=== PATIENT | female | born 1955 | race Two or more races ===

== ENCOUNTER 2016-10-28 07:25 | Emergency (ER) | payer OTHER ==
[~2016-10-28] VITALS: Ht 154.9 cm; Wt 63.5 kg
[~2016-10-28 07:25] MED LIST: AMLODIPINE BESY10 MG ORAL; ATENOLOL50 MG ORAL; ATORVASTATIN CA20 MG ORAL; BENAZEPRIL HCL20 MG ORAL; CEPHALEXIN500 MG ORAL; COUMADIN1 MG ORAL; DIGOXIN0.125 MG/2 ORAL; DIGOXIN125 MCG ORAL; K-TAB10 MEQ PO; LASIX20 M1 ORAL; TENORMIN25 MG ORAL; WARFARIN SODIUM3 MG ORAL; WARFARIN SODIUM5 MG ORAL
[2016-10-28 07:45] VITALS: BP 136/53
[2016-10-28] MEDS ORDERED: WARFARIN SODIUM3 MG ORAL (07:48)
--- NOTE | 2016-10-28 08:03 | Emergency Room Report ---
History of Present Illness General Chief Complaint: Upper Respiratory Illness Source: Patient Present Illness HPI Patient presents with complaints of ongoing cough for the past one day Denies any headache or visual changes denies any chest pain denies any back or flank pain Denies any dyspnea denies any pleurisy Patient feels that she has a irritation sensation in the back of her throat Denies any runny nose denies any recent travel Allergies: Coded Allergies: PENICILLIN (Unverified Allergy, Unknown, 07/02/15) Patient History Past Medical History: see triage record Pertinent Family History: none Reviewed Nursing Documentation: PMH: Agreed, PSxH: Agreed Nursing Documentation-PMH Past Medical History: No History, Except For Hx Cardiac Problems: Yes - heart surgery (valve replacement) Hx Hypertension: Yes Hx Cancer: No Hx Gastrointestinal Problems: No Hx Neurological Problems: No Review of Systems All Other Systems: negative except mentioned in HPI Physical Exam Vital Signs Date Time Temp Pulse Resp B/P Pulse Ox O2 Delivery O2 Flow Rate FiO2 10/28/16 07:37 98.2 74 16 136/53 94 Room Air Sp02 EP Interpretation: reviewed, normal General Appearance: well appearing, no apparent distress Head: normocephalic, atraumatic Eyes: bilateral eye EOMI, bilateral eye PERRL ENT: hearing grossly normal, normal pharynx, TMs + canals normal, uvula midline Neck: full range of motion, supple, no meningismus, no bony tend Respiratory: lungs clear, normal breath sounds, no rhonchi, no respiratory distress, no retraction, no accessory muscle use Cardiovascular #1: normal peripheral pulses, regular rate, rhythm, no edema, no gallop, no JVD, no murmur Gastrointestinal: normal bowel sounds, non tender, soft, no mass, no organomegaly, non-distended, no guarding, no hernia, no pulsatile mass, no rebound Genitourinary: no CVA tenderness Musculoskeletal: normal inspection Neurologic: oriented x3, responsive, medical observer III-XII nml as tested, motor strength/ tone normal, sensory intact Psychiatric: mood/affect normal Skin: normal color, no rash, warm/dry, palpation normal, other - Evidence of previous open-heart surgery Lymphatic: normal inspection, no adenopathy Medical Decision Making Diagnostic Impression: Primary Impression: Upper respiratory infection Additional Impression: Cough ER Course Patient is a fairly complex patient with multiple differential to consideration including but not limited to cardiac cardiopulmonary and vascular emergencies Patient's chest x-ray does not show any acute disease Patient has multiple comorbidities including cardiac pathology, evidence of valve replacement as well Patient's cough appears to be related to allergic, URI type symptoms Consideration for cardiac is low, possible reflux versus valve issues also need to be considered Patient has some remains hemodynamically stable clinical exam does not show any edema or acute pathology patient is initially treated conservatively for the URI symptom along with cough And will return with any changes in symptoms Chest X-Ray Diagnostic Results EP Interpretation: Yes Findings: no consolidation, no effusion, no pneumothorax, other - previous surgery, valve replacement Number of Views: 1 Last Vital Signs Date Time Temp Pulse Resp B/P Pulse Ox O2 Delivery O2 Flow Rate FiO2 10/28/16 07:45 98.2 16 136/53 94 Room Air 10/28/16 07:45 74 Status: improved Disposition: HOME, SELF-CARE Condition: Improved Scripts Guaifenesin/Codeine Phos* (ROBITUSSIN AC*) 118 Ml Liquid 5 ML ORAL Q8HR Y for For Cough for 5 Days, #118 ML 0 Refills Prov: NJ MELISSA D.O. 10/28/16 Famotidine (PEPCID) 40 Mg Tablet 40 MG PO DAILY, #7 TAB 0 Refills Prov: NJ MELISSA D.O. 10/28/16 Additional Instructions: Patient is provided with the discharge instructions notified to follow up with primary doctor in the next 2-3 days otherwise return to the er with any worsening symptoms. Please note that this report is being documented using Xierkang technology. This can lead to erroneous entry secondary to incorrect interpretation by the dictating instrument. NJ MELISSA D.O. October 28, 2016 08:03
[2016-10-28] MEDS ORDERED: GUAIFENESIN-CO118 M1 ORAL (09:15)
[2016-10-28] MEDS ORDERED: PEPCID40 MG PO (09:15)
[2016-10-28 09:26] VITALS: BP 135/54
[2016-10-28 09:28] VITALS: BP 135/54
--- NOTE | 2016-10-28 11:41 | Diagnostic Imaging Report ---
Indication: Dyspnea Comparison: 07/02/15 A single view chest radiograph was obtained. Findings: Cardiomegaly is present. Mild vascular prominence noted. Mechanical heart, sternotomy noted. Impression: No interval change. Mild interstitial edema is not excluded
== END 2016-10-28 09:29 | disposition home or self-care (01) ==
LOC: EMR 08:02
DX: J06.9 Acute upper respiratory infection, unspecified (principal); R05 Cough; Z88.0 Allergy status to penicillin; I10 Essential (primary) hypertension; Z95.2 Presence of prosthetic heart valve
CPT/HCPCS: 71010; 99284

== ENCOUNTER 2017-06-06 00:07 | Emergency (ER) | payer OTHER ==
[~2017-06-06] VITALS: Ht 160 cm; Wt 72.6 kg
[~2017-06-06 00:07] MED LIST changes: +GUAIFENESIN-CO118 M1 ORAL; +PEPCID40 MG PO
[2017-06-06 00:17] VITALS: BP 151/68
[2017-06-06 01:11] LABS: BASOPHILS % (AUTO) 0.7 % (0.0-2.0); EOSINOPHILS % (AUTO) 4.7 % (0.0-3.0); LYMPHOCYTES % (AUTO) 17.7 % (20.0-45.0); MEAN CORPUSCULAR HEMOGLOBIN 30.8 PG (27.0-31.0); MEAN CORPUSCULAR HGB CONC 34.6 G/DL (32.0-36.0); MEAN CORPUSCULAR VOLUME 89 FL (80-99); MEAN PLATELET VOLUME 6.6 FL (6.5-10.1); MONOCYTES % (AUTO) 8.2 % (1.0-10.0); NEUTROPHILS % (AUTO) 68.8 % (45.0-75.0); PLATELET COUNT 258 K/UL (150-450); RED BLOOD COUNT 4.37 M/UL (4.20-5.40); WHITE BLOOD COUNT 13.8 K/UL (4.8-10.8)
[2017-06-06 01:13] LABS: APPEARANCE,URINE CLEAR; KETONES,URINE NEGATIVE (NEGATIVE); LEUKOCYTE ESTERASE ,URINE 2+ (NEGATIVE); NITRITE,URINE NEGATIVE (NEGATIVE); PH,URINE 5 (4.5-8.0); PROTEIN,URINE 3+ (NEGATIVE); UROBILINOGEN,URINE NORMAL MG/DL (0.0-1.0)
[2017-06-06 01:35] LABS: PROTHROMBIN TIME 21.4 SEC (9.30-11.50)
[2017-06-06 01:38] LABS: ANION GAP 10 mmol/L (5-15); CARBON DIOXIDE 27 MMOL/L (21-32); CHLORIDE 101 MMOL/L (98-107); POTASSIUM 3.8 MMOL/L (3.5-5.1); SODIUM 138 MMOL/L (136-145)
[2017-06-06 01:41] LABS: BACTERIA,URINE FEW /HPF; SQUAMOUS EPITHELIAL CELL,UR FEW /LPF (NONE/OCC)
--- NOTE | 2017-06-06 01:44 | Emergency Room Report ---
History of Present Illness General Chief Complaint: Upper Respiratory Illness Source: Patient Present Illness HPI 62-year-old female with pmhx mitral valve repair, on Coumadin p/w cough for 2-3 days days. Pt states cough is productive, with clear non bloody sputum. + fever chills sob. No chest pain. + runny nose or myalgias. No sick contacts or recent travel. Patient does not smoke. Allergies: Coded Allergies: PENICILLIN (Unverified Allergy, Unknown, 07/02/15) Patient History Past Medical History: see triage record Past Surgical History: none Pertinent Family History: none Last Menstrual Period: NA Reviewed Nursing Documentation: PMH: Agreed, PSxH: Agreed Nursing Documentation-PMH Hx Cardiac Problems: Yes - heart surgery (valve replacement) Hx Hypertension: Yes Hx Cancer: No Hx Gastrointestinal Problems: No Hx Neurological Problems: No Review of Systems All Other Systems: negative except mentioned in HPI Physical Exam Vital Signs Date Time Temp Pulse Resp B/P (MAP) Pulse Ox O2 Delivery O2 Flow Rate FiO2 06/06/17 00:12 98.6 74 16 151/68 94 Room Air Sp02 EP Interpretation: reviewed, normal General Appearance: alert, GCS 15, non-toxic, mild distress Head: normocephalic, atraumatic Eyes: bilateral eye normal inspection, bilateral eye PERRL, bilateral eye EOMI ENT: normal ENT inspection, normal pharynx, normal voice, moist mucus membranes Neck: normal inspection, full range of motion, supple Respiratory: normal inspection, lungs clear, normal breath sounds, no respiratory distress, no retraction, no wheezing, speaking full sentences, chest symmetrical Cardiovascular #1: regular rate, rhythm, normal capillary refill, systolic murmur, other - well healed substernal scar Cardiovascular #2: 2+ radial (R), 2+ radial (L) Gastrointestinal: normal inspection, non tender, soft, non-distended, no guarding Musculoskeletal: normal inspection, back normal, normal range of motion, non- tender Neurologic: normal inspection, alert, oriented x3, responsive, motor strength/ tone normal, sensory intact, normal gait, speech normal Psychiatric: normal inspection, judgement/insight normal, memory normal Skin: normal inspection, normal color, no rash, warm/dry, well hydrated, normal turgor Medical Decision Making Diagnostic Impression: Primary Impression: Pneumonia ER Course 62-year-old female p/w cough for 2-3 days days. DDX: Viral URI vs. pneumonia Plan: Labs and chest x-ray ER course: Patient remains nontoxic, not in resp distress. CXR obtained -possible left-sided infiltrate nontoxic appearing, speaking in complete sentences, vital signs normal, can tolerate PO, will dc home Disposition: Patient is to be discharged home with a prescription of doxycycline as azithromycin and Levaquin will have severe interactions with Coumadin level Strict precautions discussed with patient on when to return to the emergency room including hemoptysis, high fevers, chills, SOB, chest pain which may indicate severe illness. Patient is to follow up with their primary care doctor within 3 days. Patient agrees with plan. Please note that this Emergency Department Report was dictated using DoYouRemembersurveyor geodetic technology software, occasionally this can lead to erroneous entry secondary to interpretation by the dictation equipment Chest X-ray CXR: Ordered: Yes 1 view Indication: Cough EP interpretation: Yes Interpretation: Cardiomegaly, possible left-sided infiltrate Impression: Possible left-sided pneumonia Electronically signed by Seth Schilling MD Laboratory Tests Test 06/06/17 00:48 White Blood Count 13.8 K/UL (4.8-10.8) H Red Blood Count 4.37 M/UL (4.20-5.40) Hemoglobin 13.4 G/DL (12.0-16.0) Hematocrit 38.9 % (37.0-47.0) Mean Corpuscular Volume 89 FL (80-99) Mean Corpuscular Hemoglobin 30.8 PG (27.0-31.0) Mean Corpuscular Hemoglobin Concent 34.6 G/DL (32.0-36.0) Red Cell Distribution Width 13.0 % (11.6-14.8) Platelet Count 258 K/UL (150-450) Mean Platelet Volume 6.6 FL (6.5-10.1) Neutrophils (%) (Auto) 68.8 % (45.0-75.0) Lymphocytes (%) (Auto) 17.7 % (20.0-45.0) L Monocytes (%) (Auto) 8.2 % (1.0-10.0) Eosinophils (%) (Auto) 4.7 % (0.0-3.0) H Basophils (%) (Auto) 0.7 % (0.0-2.0) Prothrombin Time 21.4 SEC (9.30-11.50) H Prothrombin Time INR 2.0 (0.9-1.1) H PTT 35 SEC (23-33) H Urine Color Yellow Urine Appearance Clear Urine pH 5 (4.5-8.0) Urine Specific [place] 1.020 (1.005-1.035) Urine Protein 3+ (NEGATIVE) H Urine Glucose (UA) Negative (NEGATIVE) Urine Ketones Negative (NEGATIVE) Urine Occult Blood 1+ (NEGATIVE) H Urine Nitrite Negative (NEGATIVE) Urine Bilirubin Negative (NEGATIVE) Urine Urobilinogen Normal MG/DL (0.0-1.0) Urine Leukocyte Esterase 2+ (NEGATIVE) H Urine RBC 2-4 /HPF (0 - 2) H Urine WBC 10-15 /HPF (0 - 2) H Urine Squamous Epithelial Cells Few /LPF (NONE/OCC) Urine Bacteria Few /HPF (NONE) Sodium Level 138 MMOL/L (136-145) Potassium Level 3.8 MMOL/L (3.5-5.1) Chloride Level 101 MMOL/L (98-107) Carbon Dioxide Level 27 MMOL/L (21-32) Anion Gap 10 mmol/L (5-15) Blood Urea Nitrogen 18 mg/dL (7-18) Creatinine 1.0 MG/DL (0.55-1.30) Estimate Glomerular Filtration Rate 56.0 mL/min (>60) Glucose Level 133 MG/DL (74-106) H Calcium Level 9.0 MG/DL (8.5-10.1) Total Bilirubin 2.6 MG/DL (0.2-1.0) H Direct Bilirubin 0.4 MG/DL (0.0-0.3) H Aspartate Amino Transferase (AST) 48 U/L (15-37) H Alanine Aminotransferase (ALT) 41 U/L (12-78) Alkaline Phosphatase 142 U/L (46-116) H Troponin I 0.001 ng/mL (0.000-0.056) Pro-B-Type Natriuretic Peptide 376 pg/mL (0-125) H Total Protein 9.2 G/DL (6.4-8.2) H Albumin 4.5 G/DL (3.4-5.0) Globulin 4.7 g/dL Albumin/Globulin Ratio 1.0 (1.0-2.7) Last Vital Signs Date Time Temp Pulse Resp B/P (MAP) Pulse Ox O2 Delivery O2 Flow Rate FiO2 06/06/17 00:17 98.6 74 16 151/68 94 Room Air Scripts Doxycycline Monohydrate* (DOXYCYCLINE MONOHYDRATE*) 100 Mg Capsule 100 MG ORAL Q12H for 7 Days, #14 CAP 0 Refills Prov: Seth Schilling M.D. 06/06/17 Seth Schilling M.D. Jun 06, 2017 01:44
[2017-06-06] MEDS ORDERED: DOXYCYCLINE MO100 MG ORAL (01:45)
[2017-06-06 01:48] LABS: ALANINE AMINOTRANSFERASE 41 U/L (12-78); ASPARTATE AMINO TRANSFERASE 48 U/L (15-37); TOTAL PROTEIN 9.2 G/DL (6.4-8.2)
[2017-06-06 01:50] LABS: BILIRUBIN,DIRECT 0.4 MG/DL (0.0-0.3)
[2017-06-06] MEDS ORDERED: Benzonatate 100mg Perles ORAL ONE (02:15)
[2017-06-06 02:17] VITALS: BP 141/63
[2017-06-06 02:30] VITALS: BP 144/70
--- NOTE | 2017-06-06 11:47 | Diagnostic Imaging Report ---
Indication: Pain Technique: XRAY Chest 1v Comparison: 10/28/2016 Findings: Stable cardiomegaly. Sternotomy and prosthetic cardiac valve again noted. There is mild pulmonary vascular congestion. There is no focal airspace consolidation, pleural effusion or pneumothorax. Cholecystectomy clips are noted in the right upper quadrant. No acute osseous abnormality seen. Impression: Fragmented with mild pulmonary vascular congestion. No focal consolidation.
== END 2017-06-06 02:30 | disposition home or self-care (01) ==
LOC: EMR 00:32
DX: J18.9 Pneumonia, unspecified organism (principal); I10 Essential (primary) hypertension; Z95.2 Presence of prosthetic heart valve; Z88.0 Allergy status to penicillin
CPT/HCPCS: 36415; 71010; 80053; 81003; 82248; 83880; 84484; 85025; 85610; 85730; 87086; 99284

== ENCOUNTER 2018-08-28 17:28 | Emergency (ER) | payer OTHER ==
[~2018-08-28] VITALS: Ht 157.5 cm; Wt 63.5 kg
[~2018-08-28 17:28] MED LIST changes: +DOXYCYCLINE MO100 MG ORAL
[2018-08-28 18:08] VITALS: BP 149/63
--- NOTE | 2018-08-28 19:02 | Emergency Room Report ---
History of Present Illness General Chief Complaint: Upper Respiratory Illness Source: Medical Record Present Illness HPI 63-year-old female presents to the emergency department complaining of persistent cough with fevers and chills times 3 days in addition to having nasal congestion and rhinorrhea. Denies sore throat, ear pain, high fevers, lethargy, neck pain/stiffness, irritability, photophobia dehydration, N/V/D. Denies Cp, Palpitations, LOC, AMS, seizures, paresthesias, or changes in Hearing or vision, no Sudden severe LOUISE. Denies hx of smoking, asthma or COPD. Pt. has Hx of heart surgery. denies LE edema or hx of CHF. Allergies: Coded Allergies: PENICILLIN (Unverified Allergy, Unknown, 07/02/15) Patient History Past Medical History: see triage record, other Past Surgical History: other - heart valve replacement Now: No Reviewed Nursing Documentation: PMH: Agreed; PSxH: Agreed Nursing Documentation-PMH Past Medical History: No History, Except For Hx Cardiac Problems: Yes - heart surgery (valve replacement) Hx Hypertension: Yes Hx Cancer: No Hx Gastrointestinal Problems: No Hx Neurological Problems: No Review of Systems All Other Systems: negative except mentioned in HPI Physical Exam Vital Signs Date Time Temp Pulse Resp B/P (MAP) Pulse Ox O2 Delivery O2 Flow Rate FiO2 08/28/18 17:41 98.4 80 18 149/63 95 Room Air Medical Decision Making PA Attestation Dr. العراقي is my supervising Physician whom patient management has been discussed with. Diagnostic Impression: Primary Impression: Atypical pneumonia ER Course Pt. presents to the ED c/o cough congestion bodyaches, fevers, chills and headaches x [ ] Ddx considered but are not limited to URI, pneumonia, PE, strep pharyngitis, meningitis. Vital signs: Pt. is afebrile, the remaining VS are WNL H&PE are most consistent with URI- no meningeal signs, oropharynx is not involved, no evidence of bacterial infection at this time. ORDERS: none required at this time, the diagnosis is clinical ED INTERVENTIONS: None required at this time. --PT. EDUCATION: Discussed antibiotic resistance with inappropriate prescribing of antibiotics for viral illnesses. Discussed signs and symptoms to indicate viral illness versus bacterial illness. DISCHARGE: At this time pt. is stable for d/c to home. Will provide printed patient care instructions, and any necessary prescriptions. Care plan and follow up instructions have been discussed with the patient prior to discharge. Last Vital Signs Date Time Temp Pulse Resp B/P (MAP) Pulse Ox O2 Delivery O2 Flow Rate FiO2 08/28/18 18:08 80 18 Room Air 08/28/18 18:08 98.4 149/63 95 Status: improved Disposition: HOME, SELF-CARE Condition: Stable Patient Instructions: Upper Respiratory Infection, Adult Additional Instructions: Take medications as directed. Follow up with a Primary Care Provider in 3-5 days, even if your symptoms have resolved. --Please review list of primary care clinics, if you do not already have a primary care provider Return sooner to ED if new symptoms occur, or current symptoms become worse. Do not drink alcohol, drive, or operate heavy machinery while taking Cough Syrup as this may cause drowsiness. - Please note that this Emergency Department Report was dictated using DriverTechhighway technician technology software, occasionally this can lead to erroneous entry secondary to interpretation by the dictation equipment. Nela Conrad Aug 28, 2018 19:02
[2018-08-28] MEDS ORDERED: PROMETHAZINE-C118 M1 ORAL (19:05)
[2018-08-28] MEDS ORDERED: VIBRAMYCIN100 MG ORAL (19:05)
[2018-08-28 19:17] VITALS: BP 149/63
--- NOTE | 2018-08-28 19:20 | NUR ---
ER DISCHARGE NOTE: Patient is cleared to be discharged per ERMD, pt is aox4, on room air, with stable vital signs. pt was given dc and prescription instructions, pt was able to verbalize understanding, pt is able to ambulate with steady gait. pt took all belongings.
== END 2018-08-28 19:17 | disposition home or self-care (01) ==
LOC: EMR 18:10
DX: J18.9 Pneumonia, unspecified organism (principal); I10 Essential (primary) hypertension; Z88.0 Allergy status to penicillin
CPT/HCPCS: 99282

== ENCOUNTER 2019-02-15 16:20 | Emergency (ER) | payer OTHER ==
[~2019-02-15] VITALS: Ht 162.6 cm; Wt 69.4 kg
[~2019-02-15 16:20] MED LIST changes: +PROMETHAZINE-C118 M1 ORAL; +VIBRAMYCIN100 MG ORAL
--- NOTE | 2019-02-15 16:43 | NUR ---
ED Nurse Note: Pt came in from home due to R index finger swelling and pain x 2 days. No recent injury noted. Pain 8/10 joselito. AOx4, VSS. Has hx of Gout. Will cont to monitor.
[2019-02-15 16:54] VITALS: BP 131/79
--- NOTE | 2019-02-15 17:09 | NUR ---
ED Nurse Note: X-ray tech at bedside for imaging.
--- NOTE | 2019-02-15 17:29 | Emergency Room Report ---
History of Present Illness General Chief Complaint: Pain Source: Patient, Medical Record Present Illness HPI 63-year-old female with history of gout and cardiac disorder currently having a functional defibrillator here complaining of 2 days of pain and swelling over the right index finger without any fall or injury. Patient reports that this is the location where she usually gets her gout flareups. Every time that she consumes red meat as well as Medicare she has a gout flareup. Does not take allopurinol on daily basis. Patient has an appointment coming up with her [employer] functional analyst next week. Denies chest pain, shortness of breath, palpitation, dizziness and headache. Patient is rating her pain upon palpation of her right index finger 7 out of 10 without radiation denying tingling and numbness. Mild erythema and edema of the right second metatarsal noted. Patient has full range of motion the affected side. Sitting comfortably with stable vital signs. Denies all other associated symptoms. Allergies: Coded Allergies: PENICILLIN (Unverified Allergy, Unknown, 07/02/15) Patient History Past Medical History: see triage record Past Surgical History: unable to obtain Pertinent Family History: none Last Menstrual Period: N/A Now: No Immunizations: UTD Reviewed Nursing Documentation: PMH: Agreed; PSxH: Agreed Nursing Documentation-PMH Hx Cardiac Problems: Yes - heart surgery (valve replacement), pacemaker, Gout Hx Hypertension: Yes Hx Cancer: No Hx Gastrointestinal Problems: No Hx Neurological Problems: No Review of Systems All Other Systems: negative except mentioned in HPI Physical Exam Vital Signs Date Time Temp Pulse Resp B/P (MAP) Pulse Ox O2 Delivery O2 Flow Rate FiO2 02/15/ 16:34 99.1 75 18 138/77 (97) 93 Room Air Sp02 EP Interpretation: reviewed, normal General Appearance: no apparent distress, alert, GCS 15, non-toxic Head: normocephalic, atraumatic Eyes: bilateral eye normal inspection, bilateral eye PERRL ENT: hearing grossly normal, normal pharynx, no angioedema, normal voice Neck: full range of motion, supple/symm/no masses Respiratory: chest non-tender, lungs clear, normal breath sounds, no rhonchi, no wheezing, speaking full sentences Cardiovascular #1: regular rate, rhythm, no edema, no murmur, normal capillary refill Cardiovascular #2: 2+ radial (R), 2+ radial (L) Gastrointestinal: normal bowel sounds, non tender, soft, non-distended, no guarding, no rebound Genitourinary: normal inspection, no CVA tenderness Musculoskeletal: swelling - Right index finger with no bony tenderness Neurologic: alert, oriented x3, responsive, motor strength/tone normal, sensory intact, speech normal Psychiatric: judgement/insight normal, memory normal, mood/affect normal, no suicidal/homicidal ideation Skin: no rash Lymphatic: no adenopathy Medical Decision Making PA Attestation All diagnoses and treatment plans were reviewed and discussed with my supervising physician Dr. Julian Diagnostic Impression: Primary Impression: Gout attack ER Course 63-year-old female with history of gout and cardiac disorder currently having a functional defibrillator here complaining of 2 days of pain and swelling over the right index finger without any fall or injury. Patient reports that this is the location where she usually gets her gout flareups. Every time that she consumes red meat as well as Medicare she has a gout flareup. Does not take allopurinol on daily basis. Patient has an appointment coming up with her [employer] functional analyst next week. Denies chest pain, shortness of breath, palpitation, dizziness and headache. Patient is rating her pain upon palpation of her right index finger 7 out of 10 without radiation denying tingling and numbness. Mild erythema and edema of the right second metatarsal noted. Patient has full range of motion the affected side. Sitting comfortably with stable vital signs. Denies all other associated symptoms. Ddx considered but are not limited to : Cellulitis, finger fracture versus sprain versus gout attack versus osteoarthritis Vital signs: are WNL, pt. is afebrile H&PE are most consistent with: Gout attack ORDERS: Uric acid, x-ray of right finger, colchicine ED INTERVENTIONS: None required at this time. DISCHARGE: At this time pt. is stable for d/c to home. Will provide printed patient care instructions, and any necessary prescriptions. Care plan and follow up instructions have been discussed with the patient prior to discharge. I advised the patient to follow-up with her primary care provider as well as [employer] functional analyst take medication as directed avoid foods with high purine content Other X-Ray Diagnostic Results Other X-Ray Diagnostic Results : X-Ray ordered: right finger # of Views/Limited Vs Complete: 3 View Indication: Pain EP Interpretation: Yes LAYA Xray: Interpretation reviewed, by supervising MD, and agrees with findings. Interpretation: no dislocation, no soft tissue swelling, no fractures Impression: No acute disease Electronically Signed by: Frank Echols PA-C Last Vital Signs Date Time Temp Pulse Resp B/P (MAP) Pulse Ox O2 Delivery O2 Flow Rate FiO2 02/15/19 16:54 99.1 87 18 131/79 95 Room Air Disposition: HOME, SELF-CARE Condition: Stable Scripts Colchicine (Colchicine) 0.6 Mg Capsule 1.2 MG PO ONCE for 1 Day, #3 CAP take 1.2mg x 1, then 0.6mg one hour later x1 Prov: Frank Brunson 02/15/19 Referrals: Ania RICHTER,REFERRING (PCP) Patient Instructions: Gout, Twkj-[id number] Additional Instructions: Take medication as directed avoid food with high purine follow-up with your primary care provider Frank Brunson Feb 15, 2019 17:29
[2019-02-15] MEDS ORDERED: COLCHICINE0.6 M1 PO (17:31)
[2019-02-15 17:52] VITALS: BP 131/79
--- NOTE | 2019-02-15 17:52 | NUR ---
ER DISCHARGE NOTE: Patient is cleared to be discharged per ERMD, pt is aox4, on room air, with stable vital signs. pt was given dc and prescription instructions, pt was able to verbalize understanding, pt id band removed. pt is able to ambulate with steady gait. pt took all belongings.
--- NOTE | 2019-02-17 10:44 | Diagnostic Imaging Report ---
Indication: pain in finger. trauma Findings: 3 views of the right second finger were obtained. No acute fractures, malalignment, erosions, or periosteal reaction are seen. Soft tissues are unremarkable. Impression: No acute findings.
== END 2019-02-15 17:52 | disposition home or self-care (01) ==
LOC: EMR 16:46
DX: M10.9 Gout, unspecified (principal); I10 Essential (primary) hypertension; Z95.2 Presence of prosthetic heart valve; Z88.0 Allergy status to penicillin; Z95.810 Presence of automatic (implantable) cardiac defibrillator
CPT/HCPCS: 36415; 84550; 99283

== ENCOUNTER 2019-11-11 08:23 | Inpatient (IN) | payer MEDICARE, OTHER ==
[2019-11-11] VITALS (7 sets, daily range): BP systolic 132–158; BP diastolic 60–88
[~2019-11-11] VITALS: Ht 157.5 cm; Wt 61.7 kg
[~2019-11-11 08:23] MED LIST changes: +COLCHICINE0.6 M1 PO
[2019-11-11 08:55] LABS: HEMATOCRIT 37.9 % (37.0-47.0); HEMOGLOBIN 13.5 G/DL (12.0-16.0); MEAN CORPUSCULAR VOLUME 83 FL (80-99); PLATELET COUNT 225 K/UL (150-450); RED BLOOD COUNT 4.57 M/UL (4.20-5.40); RED CELL DISTRIBUTION WIDTH 12.7 % (11.6-14.8); WHITE BLOOD COUNT 10.3 K/UL (4.8-10.8)
[2019-11-11 09:04] LABS: ANION GAP 11 mmol/L (5-15); BLOOD UREA NITROGEN 19 mg/dL (7-18); CALCIUM 8.8 MG/DL (8.5-10.1); CARBON DIOXIDE 27 MMOL/L (21-32); CHLORIDE 104 MMOL/L (98-107); CREATININE 0.9 MG/DL (0.55-1.30); POTASSIUM 3.9 MMOL/L (3.5-5.1); SODIUM 141 MMOL/L (136-145)
[2019-11-11 09:05] LABS: INR 3.5 (0.9-1.1)
--- NOTE | 2019-11-11 09:10 | Diagnostic Imaging Report ---
Procedure: XRAY Chest 1v Reason for study: Chest pain Comparison films: 06/06/2017. FINDINGS: Patient status post open heart surgery and valve replacement. Compared to the previous exam, there is a new pacer in place over the left upper chest with pacer leads at the right atrium and right ventricle. There is vascular congestion. Hazy central interstitial and alveolar densities noted suggestive of early edema. Cardiomegaly unchanged. CP angles are sharp. The bony thorax appear unremarkable. IMPRESSION: Vascular congestion and early edema.
[2019-11-11] MEDS ORDERED: METOPROLOL TART25 MG ORAL (09:15)
[2019-11-11] MEDS ORDERED: ALBUTEROL2.5 MG/3 M INH (09:15)
[2019-11-11] MEDS ORDERED: ASPIR 8181 MG ORAL (09:15)
[2019-11-11 09:18] LABS: ALANINE AMINOTRANSFERASE 29 U/L (12-78); ALBUMIN 4.3 G/DL (3.4-5.0); ALKALINE PHOSPHATASE 124 U/L (46-116); ASPARTATE AMINO TRANSFERASE 31 U/L (15-37); BILIRUBIN,TOTAL 0.6 MG/DL (0.2-1.0); CKMB 0.6 NG/ML (0.0-3.6); CREATINE KINASE 76 U/L (26-308); PHOSPHORUS 3.1 MG/DL (2.5-4.9)
[2019-11-11 09:42] LABS: APPEARANCE,URINE CLEAR; BILIRUBIN, URINE NEGATIVE (NEGATIVE); COLOR,URINE PALE YELLOW; GLUCOSE, URINE (UA) NEGATIVE (NEGATIVE); KETONES,URINE NEGATIVE (NEGATIVE); LEUKOCYTE ESTERASE ,URINE NEGATIVE (NEGATIVE); NITRITE,URINE NEGATIVE (NEGATIVE); PH,URINE 6 (4.5-8.0); PROTEIN,URINE NEGATIVE (NEGATIVE); UROBILINOGEN,URINE NORMAL MG/DL (0.0-1.0)
--- NOTE | 2019-11-11 10:36 | Emergency Room Report ---
History of Present Illness General Chief Complaint: Generalized Weakness Source: Patient, Medical Record Present Illness HPI Patient presents with initially complained of general weakness After further questioning also describes exertional dyspnea Denies any active chest pain denies any vomiting denies any back or flank pain denies any dysuria frequency Patient reports that she has recently had a pacemaker placed she is otherwise a fairly poor historian Does not know his medications Denies any focal weakness denies any change in speech Reports that symptoms started 2 days ago however cannot give a specific time Allergies: Coded Allergies: PENICILLIN (Unverified Allergy, Unknown, 07/02/15) COVID-19 Screening Contact w/high risk pt: No Recent Travel to affected area: No Experienced COVID-19 symptoms?: No COVID-19 Testing performed BUCKLE STRAP PUNCHER: No Patient History Past Medical History: see triage record Reviewed Nursing Documentation: PMH: Agreed; PSxH: Agreed Nursing Documentation-PMH Past Medical History: No History, Except For Hx Cardiac Problems: Yes - heart surgery (valve replacement), pacemaker, Gout Hx Hypertension: Yes Hx Cancer: No Hx Gastrointestinal Problems: No Hx Neurological Problems: No Review of Systems All Other Systems: negative except mentioned in HPI Physical Exam Vital Signs Date Time Temp Pulse Resp B/P (MAP) Pulse Ox O2 Delivery O2 Flow Rate FiO2 11/10/ 08:20 97.9 88 16 154/86 (108) 95 Room Air Sp02 EP Interpretation: reviewed, normal General Appearance: well appearing, no apparent distress Head: normocephalic, atraumatic Eyes: bilateral eye PERRL, bilateral eye EOMI ENT: hearing grossly normal, normal pharynx, TMs + canals normal, uvula midline Neck: full range of motion, supple, no meningismus, no bony tend Respiratory: no respiratory distress, no retraction, no accessory muscle use, crackles - Both lower lobes Cardiovascular #1: normal peripheral pulses, no edema, no gallop, no JVD, no murmur, irregularly irregular Gastrointestinal: normal bowel sounds, non tender, soft, no mass, no organomegaly, non-distended, no guarding, no hernia, no pulsatile mass, no rebound Genitourinary: no CVA tenderness Musculoskeletal: normal inspection - Moving all extremities equally without focal deficit Neurologic: motor strength/tone normal, group home paraprofessional III-XII nml as tested, oriented x3 , sensory intact, responsive Psychiatric: mood/affect normal Skin: no rash Lymphatic: normal inspection, no adenopathy Medical Decision Making Diagnostic Impression: Primary Impression: Atrial fibrillation Additional Impressions: CHF (congestive heart failure) Suspected COVID-19 virus infection ER Course Patient is a fairly complex patient with multiple differential to consideration including but not limited to cardiac cardiopulmonary and vascular emergencies Given the current environment consideration for covid-19 also made patient's x- ray shows bilateral congestion BNP however is low Patient was provided with diuretic INR is also elevated consistent with her Atrial fibrillation And patient admitted for further care and evaluation of covid-19 Labs Test 11/11/19 08:35 11/11/19 09:15 White Blood Count 10.3 K/UL (4.8-10.8) Red Blood Count 4.57 M/UL (4.20-5.40) Hemoglobin 13.5 G/DL (12.0-16.0) Hematocrit 37.9 % (37.0-47.0) Mean Corpuscular Volume 83 FL (80-99) Mean Corpuscular Hemoglobin 29.6 PG (27.0-31.0) Mean Corpuscular Hemoglobin Concent 35.7 G/DL (32.0-36.0) Red Cell Distribution Width 12.7 % (11.6-14.8) Platelet Count 225 K/UL (150-450) Mean Platelet Volume 6.3 FL (6.5-10.1) Neutrophils (%) (Auto) % (45.0-75.0) Lymphocytes (%) (Auto) % (20.0-45.0) Monocytes (%) (Auto) % (1.0-10.0) Eosinophils (%) (Auto) % (0.0-3.0) Basophils (%) (Auto) % (0.0-2.0) Differential Total Cells Counted 100 Neutrophils % (Manual) 34 % (45-75) Lymphocytes % (Manual) 39 % (20-45) Monocytes % (Manual) 10 % (1-10) Eosinophils % (Manual) 17 % (0-3) Basophils % (Manual) 0 % (0-2) Band Neutrophils 0 % (0-8) Platelet Estimate Adequate Platelet Morphology Normal Red Blood Cell Morphology Normal Prothrombin Time 35.4 SEC (9.30-11.50) Prothromb Time International Ratio 3.5 (0.9-1.1) Sodium Level 141 MMOL/L (136-145) Potassium Level 3.9 MMOL/L (3.5-5.1) Chloride Level 104 MMOL/L (98-107) Carbon Dioxide Level 27 MMOL/L (21-32) Anion Gap 11 mmol/L (5-15) Blood Urea Nitrogen 19 mg/dL (7-18) Creatinine 0.9 MG/DL (0.55-1.30) Estimat Glomerular Filtration Rate > 60 mL/min (>60) Glucose Level 103 MG/DL (74-106) Lactic Acid Level 1.50 mmol/L (0.4-2.0) Calcium Level 8.8 MG/DL (8.5-10.1) Phosphorus Level 3.1 MG/DL (2.5-4.9) Magnesium Level 2.0 MG/DL (1.8-2.4) Total Bilirubin 0.6 MG/DL (0.2-1.0) Aspartate Amino Transf (AST/SGOT) 31 U/L (15-37) Alanine Aminotransferase (ALT/SGPT) 29 U/L (12-78) Alkaline Phosphatase 124 U/L (46-116) Total Creatine Kinase 76 U/L (26-308) Creatine Kinase MB 0.6 NG/ML (0.0-3.6) Creatine Kinase MB Relative Index 0.7 Troponin I 0.000 ng/mL (0.000-0.056) Pro-B-Type Natriuretic Peptide 141 pg/mL (0-125) Total Protein 8.8 G/DL (6.4-8.2) Albumin 4.3 G/DL (3.4-5.0) Globulin 4.5 g/dL Albumin/Globulin Ratio 1.0 (1.0-2.7) Lipase 275 U/L (73-393) Digoxin Level < 0.3 NG/ML (0.9-2.0) Urine Color Pale yellow Urine Appearance Clear Urine pH 6 (4.5-8.0) Urine Specific [place] 1.010 (1.005-1.035) Urine Protein Negative (NEGATIVE) Urine Glucose (UA) Negative (NEGATIVE) Urine Ketones Negative (NEGATIVE) Urine Blood 1+ (NEGATIVE) Urine Nitrite Negative (NEGATIVE) Urine Bilirubin Negative (NEGATIVE) Urine Urobilinogen Normal MG/DL (0.0-1.0) Urine Leukocyte Esterase Negative (NEGATIVE) Urine RBC 0-2 /HPF (0 - 2) Urine WBC 0 /HPF (0 - 2) Urine Squamous Epithelial Cells Occasional /LPF Urine Bacteria Occasional /HPF (NONE) EKG Diagnostic Results Rate: normal Rhythm: other - A. fib ST Segments: other - Nonspecific ST and T wave changes Rhythm Strip Diag. Results EP Interpretation: yes Rate: 66 Rhythm: no PVC's, no ectopy, other - Irregularly irregular Chest X-Ray Diagnostic Results Chest X-Ray Diagnostic Results : Chest X-Ray Ordered: Yes # of Views/Limited/Complete: 1 View Indication: Shortness of Breath EP Interpretation: Yes Interpretation: no consolidation, no effusion, other - Pulmonary congestion Impression: Other - Pulmonary congestion bilateral patchy markings Electronically Signed by: Giuliano Quinteros DO Last Vital Signs Date Time Temp Pulse Resp B/P (MAP) Pulse Ox O2 Delivery O2 Flow Rate FiO2 11/11/19 09:40 98.0 66 19 158/65 100 Room Air Status: improved Disposition: ADMITTED INPATIENT Condition: Serious Referrals: NOT CHOSEN IPA/,REFERRING (PCP) Giuliano Quinteros DO November 11, 2019 10:36
[2019-11-11] MEDS: Aspirin EC 81mg tab ORAL SCH (13:30)
[2019-11-11] MEDS: Digoxin 0.125mg tab ORAL SCH (14:30)
[2019-11-11] MEDS ORDERED: Warfarin Sodium 1mg ORAL SCH (17:00)
--- NOTE | 2019-11-11 17:00 | Consultation ---
DATE OF CONSULTATION: 11/11/2019 INFECTIOUS DISEASE CONSULTATION CONSULTING PHYSICIAN: Álvaro Mix MD. PRIMARY ATTENDING: Giuliano Krueger MD. REASON FOR CONSULT: Shortness of breath, rule out of COVID-19. HISTORY OF PRESENT ILLNESS: This is a 64-year-old female admitted today from home complaining of shortness of breath on exertion, generalized weakness. Has history of valvular heart disease and taking Coumadin. PAST MEDICAL HISTORY: Significant for status post pacemaker, had cardiac surgery and metallic valve, gout, hypertension, atrial fibrillation. ALLERGIES: Allergic to penicillin. MEDICATIONS: Getting a dose of Lasix in the ER. SOCIAL HISTORY: . Denies alcohol, drug abuse, or smoking. Lives with sister. Denies any sick contacts. Originally from [facility]. REVIEW OF SYSTEMS: Has shortness of breath on exertion. No fever. No chills. Has some back pain. Some numbness in the legs. PHYSICAL EXAMINATION: VITAL SIGNS: Temperature 98.5, pulse 71, blood pressure 144/60. GENERAL APPEARANCE: No acute distress. Seems to have normal weight. HEAD AND NECK: [place]ame[place] conjunctivae. HEART: Normal rate. Has pacemaker in the left side of the chest. LUNGS: Clear. ABDOMEN: Soft, nontender. EXTREMITIES: No edema. NEUROLOGIC: She is awake, alert, oriented x3. LABORATORY AND DIAGNOSTIC DATA: WBC 10.3, hemoglobin 13.5, hematocrit 37.9, platelets normal. Sodium 149, potassium 3.9, chloride 104, bicarbonate 27, BUN 19, creatinine 0.9, glucose 103. BNP is 141. Chest x-ray showed vascular congestion, has edema. IMPRESSION: Shortness of breath. Try to rule out COVID-19. Patient also has CHF. Has hypertension, gout, valvular heart disease, status post metallic valve placement, atrial fibrillation, taking Coumadin at home. RECOMMENDATION: Observe off antibiotic. We will follow up COVID-19 test. We will follow up echocardiogram. At the end of my exam, I thank Dr. Krueger for involving me in the care of this patient. Álvaro Mix M.D. DR: SAMMIE JOB#: [id number] CC: JESSICA
--- NOTE | 2019-11-11 17:45 | Consultation ---
DATE OF CONSULTATION: 11/11/2019 PULMONARY CONSULTATION HISTORY OF PRESENT ILLNESS: This is a 64-year-old female was brought to the hospital with concerns about pneumonia. She presented to emergency room with complaints of weakness. Currently, she is saturating well on room air. The patient has had a recent pacemaker placed. The patient denies any weakness, change in speech. She reports mild fatigue and shortness of breath. ALLERGIES: Penicillin. HOME MEDICATIONS: Reviewed and reconciled in chart. PAST MEDICAL HISTORY: Hypertension, recent cardiac surgery, permanent pacemaker, history of gout. REVIEW OF SYSTEMS: Denies any headaches, hematemesis, melena, hematochezia, night sweats, weight loss. PHYSICAL EXAMINATION: GENERAL: Reveals a 64-year-old female. VITAL SIGNS: O2 saturation 100% on room air, blood pressure 140/60, heart rate 74, respiratory rate 18, she is afebrile. HEENT: Unremarkable. LUNGS: Clear breath sounds. ABDOMEN: Soft EXTREMITIES: There is no edema. LABORATORY AND DIAGNOSTIC DATA: X-ray chest shows evidence for the pacemaker. There is also mild vascular congestion. Remainder of labs unremarkable, normal CBC and BMP. INR 3.5. IMPRESSION: 1. Pulmonary edema. 2. Pacemaker. 3. History of cardiac surgery. 4. Gout. 5. Hypertension. 6. Coagulopathy. DISCUSSION: I suspect the patient may be on a blood thinner such as Coumadin. Recommend to continue home medications. Diuresis to be provided. We will follow carefully. Kushal Blankenship M.D. DR: Tarun JOB#: [id number] CC:
--- NOTE | 2019-11-11 19:31 | Cardiac Electrophysiology PN ---
Subjective Subjective [id number] Objective Last 24 Hour Vital Signs Date Time Temp Pulse Resp B/P (MAP) Pulse Ox O2 Delivery O2 Flow Rate FiO2 11/11/19 16:00 73 11/11/19 16:00 97.9 75 20 137/76 (96) 97 11/11/19 14:30 74 11/11/19 14:30 144/60 11/11/19 14:30 71 144/60 11/11/19 13:16 Room Air 11/11/19 12:00 98.0 75 20 148/81 (103) 97 11/11/19 11:50 98.5 71 18 144/60 100 Room Air 11/11/19 11:50 98.5 71 18 144/60 100 Room Air 11/11/19 11:00 98.0 70 16 147/66 99 Room Air 11/11/19 09:40 98.0 66 19 158/65 100 Room Air 11/11/19 08:44 98.0 75 16 148/88 96 Room Air 11/11/19 08:44 78 18 Room Air 11/11/19 08:20 97.9 88 16 154/86 (108) 95 Room Air Laboratory Tests Test 11/11/19 08:35 11/11/19 09:15 White Blood Count 10.3 K/UL (4.8-10.8) Red Blood Count 4.57 M/UL (4.20-5.40) Hemoglobin 13.5 G/DL (12.0-16.0) Hematocrit 37.9 % (37.0-47.0) Mean Corpuscular Volume 83 FL (80-99) Mean Corpuscular Hemoglobin 29.6 PG (27.0-31.0) Mean Corpuscular Hemoglobin Concent 35.7 G/DL (32.0-36.0) Red Cell Distribution Width 12.7 % (11.6-14.8) Platelet Count 225 K/UL (150-450) Mean Platelet Volume 6.3 FL (6.5-10.1) L Neutrophils (%) (Auto) % (45.0-75.0) Lymphocytes (%) (Auto) % (20.0-45.0) Monocytes (%) (Auto) % (1.0-10.0) Eosinophils (%) (Auto) % (0.0-3.0) Basophils (%) (Auto) % (0.0-2.0) Differential Total Cells Counted 100 Neutrophils % (Manual) 34 % (45-75) L Lymphocytes % (Manual) 39 % (20-45) Monocytes % (Manual) 10 % (1-10) Eosinophils % (Manual) 17 % (0-3) H Basophils % (Manual) 0 % (0-2) Band Neutrophils 0 % (0-8) Platelet Estimate Adequate Platelet Morphology Normal Red Blood Cell Morphology Normal Prothrombin Time 35.4 SEC (9.30-11.50) H Prothromb Time International Ratio 3.5 (0.9-1.1) H Sodium Level 141 MMOL/L (136-145) Potassium Level 3.9 MMOL/L (3.5-5.1) Chloride Level 104 MMOL/L (98-107) Carbon Dioxide Level 27 MMOL/L (21-32) Anion Gap 11 mmol/L (5-15) Blood Urea Nitrogen 19 mg/dL (7-18) H Creatinine 0.9 MG/DL (0.55-1.30) Estimat Glomerular Filtration Rate > 60 mL/min (>60) Glucose Level 103 MG/DL (74-106) Lactic Acid Level 1.50 mmol/L (0.4-2.0) Calcium Level 8.8 MG/DL (8.5-10.1) Phosphorus Level 3.1 MG/DL (2.5-4.9) Magnesium Level 2.0 MG/DL (1.8-2.4) Total Bilirubin 0.6 MG/DL (0.2-1.0) Aspartate Amino Transf (AST/SGOT) 31 U/L (15-37) Alanine Aminotransferase (ALT/SGPT) 29 U/L (12-78) Alkaline Phosphatase 124 U/L (46-116) H Total Creatine Kinase 76 U/L (26-308) Creatine Kinase MB 0.6 NG/ML (0.0-3.6) Creatine Kinase MB Relative Index 0.7 Troponin I 0.000 ng/mL (0.000-0.056) Pro-B-Type Natriuretic Peptide 141 pg/mL (0-125) H Total Protein 8.8 G/DL (6.4-8.2) H Albumin 4.3 G/DL (3.4-5.0) Globulin 4.5 g/dL Albumin/Globulin Ratio 1.0 (1.0-2.7) Lipase 275 U/L (73-393) Digoxin Level < 0.3 NG/ML (0.9-2.0) L Urine Color Pale yellow Urine Appearance Clear Urine pH 6 (4.5-8.0) Urine Specific [place] 1.010 (1.005-1.035) Urine Protein Negative (NEGATIVE) Urine Glucose (UA) Negative (NEGATIVE) Urine Ketones Negative (NEGATIVE) Urine Blood 1+ (NEGATIVE) H Urine Nitrite Negative (NEGATIVE) Urine Bilirubin Negative (NEGATIVE) Urine Urobilinogen Normal MG/DL (0.0-1.0) Urine Leukocyte Esterase Negative (NEGATIVE) Urine RBC 0-2 /HPF (0 - 2) Urine WBC 0 /HPF (0 - 2) Urine Squamous Epithelial Cells Occasional /LPF Urine Bacteria Occasional /HPF (NONE) Pb Fairchild MD November 11, 2019 19:31
[2019-11-11] MEDS: Atorvastatin 80mg tab ORAL SCH (21:35)
--- NOTE | 2019-11-11 22:30 | Consultation ---
DATE OF CONSULTATION: 11/11/2019 CARDIOLOGY CONSULTATION CONSULTING PHYSICIAN: Pb Fairchild MD. REFERRING PHYSICIAN: Giuliano Krueger MD. REASON FOR CONSULTATION: Management of congestive heart failure, atrial fibrillation, and patient's pacemaker. HISTORY OF PRESENT ILLNESS: Patient is a 64-year-old lady with history of hypertension, history of aortic and mitral valve bioprosthetic replacement, and chronic atrial fibrillation as well as history of pacemaker placement, who was brought to the hospital for concern about pneumonia. Patient had weakness, but was saturating well on room air. Patient apparently had a recent pacemaker placement. Patient was evaluated, admitted, and a Cardiology consultation was obtained for further management. Her preliminary echocardiogram showed ejection fraction of 30%. REVIEW OF SYSTEMS: Negative other what was mentioned in the history of present illness. PAST MEDICAL HISTORY: As mentioned above. FAMILY HISTORY: Noncontributory. SOCIAL HISTORY: She lives at home. Does smoke or drink alcohol. ALLERGIES: She has no known drug allergies. MEDICATIONS AT HOME: Reviewed. PHYSICAL EXAMINATION: VITAL SIGNS: Blood pressure is 140/60, pulse is 70, respirations 18, she is afebrile, saturation 100% on room air. HEAD AND NECK: Shows mild JVD. LUNGS: Clear. CARDIOVASCULAR: Regular S1 and S2 with no gallop. Sternotomy scar is intact. The pacemaker in the left subclavian. ABDOMEN: Soft. EXTREMITIES: No pitting edema. LABORATORY AND DIAGNOSTIC DATA: Chest x-ray shows a left-sided pacemaker, mild vascular congestion. Her labs show white count of 10.2, hemoglobin 13.5, hematocrit 38, and platelet count is 225. Sodium is 141, potassium is 3.9, BUN of 19, creatinine of 0.9, and glucose of 103. Troponin negative x2. Digoxin level is less than 0.3. INR is 3.5. ASSESSMENT AND PLAN: 1. Atrial fibrillation. Currently patient's rate is controlled and is ventricularly paced. The INR is therapeutic. Continue atenolol 25 mg daily. 2. Patient is also on Coumadin per pharmacy. 3. Congestive heart failure, EF of around 30%. Patient is on digoxin 0.125 mg daily, atenolol 25 mg daily, and benazepril 40 mg daily as well as Lasix 40 IV b.i.d. 4. Status post pacemaker placement. We do not know the brand of pacemaker. We will try to interrogate and find the brand. 5. Status post aortic and mitral valve bioprosthesis. 6. Hypertension, on atenolol 25 mg daily, Lasix 40 IV b.i.d., amlodipine 10 mg daily, and benazepril 40 mg daily. Thank you very much for allowing me to participate in the care of this patient. Please do not hesitate to contact me for any questions regarding my evaluation. The case was discussed with the emergency room doctor as well. Pb Fairchild M.D. DR: CHRIS JOB#: [id number] CC:
[2019-11-12] VITALS: BP 135/71
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
[2019-11-12 04:00] VITALS: BP 116/63
[2019-11-12 05:20] LABS: BASOPHILS % (AUTO) 0.5 % (0.0-2.0); EOSINOPHILS % (AUTO) 14.3 % (0.0-3.0); HEMATOCRIT 38.9 % (37.0-47.0); HEMOGLOBIN 13.7 G/DL (12.0-16.0); LYMPHOCYTES % (AUTO) 30.2 % (20.0-45.0); MEAN CORPUSCULAR VOLUME 83 FL (80-99); MONOCYTES % (AUTO) 8.3 % (1.0-10.0); NEUTROPHILS % (AUTO) 46.7 % (45.0-75.0); PLATELET COUNT 249 K/UL (150-450); RED CELL DISTRIBUTION WIDTH 12.3 % (11.6-14.8); WHITE BLOOD COUNT 10.7 K/UL (4.8-10.8)
[2019-11-12 05:53] LABS: INR 3.3 (0.9-1.1)
[2019-11-12 06:05] LABS: ALANINE AMINOTRANSFERASE 33 U/L (12-78); ALBUMIN 4.3 G/DL (3.4-5.0); ANION GAP 12 mmol/L (5-15); ASPARTATE AMINO TRANSFERASE 39 U/L (15-37); BLOOD UREA NITROGEN 31 mg/dL (7-18); CALCIUM 8.2 MG/DL (8.5-10.1); CARBON DIOXIDE 26 MMOL/L (21-32); CHLORIDE 99 MMOL/L (98-107); CREATININE 1.8 MG/DL (0.55-1.30); POTASSIUM 3.8 MMOL/L (3.5-5.1); SODIUM 137 MMOL/L (136-145)
[2019-11-12 08:02] VITALS: BP 114/61
[2019-11-12 08:27] LABS: ALKALINE PHOSPHATASE 129 U/L (46-116)
[2019-11-12] MEDS ORDERED: Atenolol 25mg tab ORAL SCH (09:00)
[2019-11-12] MEDS ORDERED: Digoxin 0.125mg tab ORAL SCH (09:00)
[2019-11-12] MEDS: Aspirin EC 81mg tab ORAL SCH (09:46)
[2019-11-12] MEDS: Digoxin 0.125mg tab ORAL SCH (09:50)
--- NOTE | 2019-11-12 09:57 | Pulmonology Progress Note ---
Subjective Interval Events: None new Constitutional: Reports: no symptoms HEENT: Repors: no symptoms Respiratory: Reports: no symptoms Cardiovascular: Reports: no symptoms Gastrointestinal/Abdominal: Reports: no symptoms Allergies: Coded Allergies: PENICILLIN (Unverified Allergy, Unknown, 07/02/15) Objective Last 24 Hour Vital Signs Date Time Temp Pulse Resp B/P (MAP) Pulse Ox O2 Delivery O2 Flow Rate FiO2 11/12/19 08:02 97.7 61 18 114/61 (78) 95 11/12/19 04:00 97.9 70 19 116/63 (80) 97 11/12/19 04:00 76 11/12/19 00:00 75 11/12/19 00:00 98.0 79 20 135/71 (92) 96 11/11/19 21:00 Room Air 11/11/19 20:00 98.2 75 19 132/75 (94) 95 11/11/19 20:00 82 11/11/19 16:00 73 11/11/19 16:00 97.9 75 20 137/76 (96) 97 11/11/19 14:30 74 11/11/19 14:30 144/60 11/11/19 14:30 71 144/60 11/11/19 13:16 Room Air 11/11/19 12:00 98.0 75 20 148/81 (103) 97 11/11/19 11:50 98.5 71 18 144/60 100 Room Air 11/11/19 11:50 98.5 71 18 144/60 100 Room Air 11/11/19 11:00 98.0 70 16 147/66 99 Room Air Intake and Output 11/11/19 11/12/19 19:00 07:00 Intake Total 1000 ml 300 ml Output Total 500 ml Balance 1000 ml -200 ml Intake Oral 300 ml IV Total 1000 ml Output Urine Total 500 ml # Voids 5 2 General Appearance: no acute distress HEENT: normocephalic Respiratory: chest wall non-tender, lungs clear Cardiovascular: normal peripheral pulses Abdomen: normal bowel sounds Laboratory Tests 11/12/19 04:00: White Blood Count 10.7, Red Blood Count 4.70, Hemoglobin 13.7, Hematocrit 38.9, Mean Corpuscular Volume 83, Mean Corpuscular Hemoglobin 29.2, Mean Corpuscular Hemoglobin Concent 35.3, Red Cell Distribution Width 12.3, Platelet Count 249, Mean Platelet Volume 6.1L, Neutrophils (%) (Auto) 46.7, Lymphocytes (%) (Auto) 30.2, Monocytes (%) (Auto) 8.3, Eosinophils (%) (Auto) 14.3H, Basophils (%) ( Auto) 0.5 11/12/19 05:00: Prothrombin Time 33.1H, Prothromb Time International Ratio 3.3H, Sodium Level 137, Potassium Level 3.8, Chloride Level 99, Carbon Dioxide Level 26, Anion Gap 12, Blood Urea Nitrogen 31H, Creatinine 1.8#H, Estimat Glomerular Filtration Rate 28.3, Glucose Level 153H, Calcium Level 8.2L, Total Bilirubin 1.0, Aspartate Amino Transf (AST/SGOT) 39H, Alanine Aminotransferase (ALT/SGPT) 33, Alkaline Phosphatase 129H, Troponin I 0.018, Total Protein 8.8H, Albumin 4.3, Globulin 4.5, Albumin/Globulin Ratio 1.0 Current Medications Medications (Trade) Dose Ordered Sig/Kody Route PRN Reason Start Time Stop Time Status Last Admin Dose Admin Amlodipine Besylate (Norvasc) 10 mg DAILY ORAL 11/11/19 14:30 12/11/19 14:29 11/11/19 14:30 Aspirin (Ecotrin) 81 mg DAILY ORAL 11/11/19 13:30 12/26/19 13:29 11/11/19 13:30 Atenolol (Tenormin) 25 mg DAILY ORAL 11/12/19 09:00 12/12/19 08:59 Atorvastatin Calcium (Lipitor) 80 mg BEDTIME ORAL 11/11/19 21:00 02/09/20 20:59 11/11/19 21:35 Benazepril HCl (Lotensin) 40 mg DAILY ORAL 11/11/19 14:30 12/11/19 14:29 11/11/19 14:30 Digoxin (Lanoxin) 0.125 mg DAILY ORAL 11/11/19 14:30 02/09/20 14:29 11/11/19 14:30 Famotidine (Pepcid) 40 mg DAILY ORAL 11/11/19 14:30 02/09/20 14:29 11/11/19 14:30 Furosemide (Lasix) 40 mg EVERY 12 HOURS IV 11/11/19 14:00 12/11/19 13:59 11/11/19 21:47 Potassium Chloride (K-Dur) 10 meq DAILY ORAL 11/11/19 14:30 02/09/20 14:29 11/11/19 14:30 Warfarin Sodium (Coumadin per pharmacy) 1 ea DAILY PRN MISC Per rx protocol 11/11/19 12:30 12/11/19 12:29 Warfarin Sodium (Warfarin Sod) 3 mg ONCE ORAL 11/12/19 17:00 11/12/19 19:00 Assessment/Plan Assessment/Plan IMPRESSION: 1. Pulmonary edema. 2. Pacemaker. 3. History of cardiac surgery. 4. Gout. 5. Hypertension. 6. Coagulopathy. DISCUSSION: Continue home medications. Diuresis as needed Saturating well today on RA I will follow carefully. Radha Hi Omar Syed MD November 12, 2019 09:56
--- NOTE | 2019-11-12 11:07 | Consultation ---
History of Present Illness General Chief Complaint: Generalized Weakness Present Illness Allergies: Coded Allergies: PENICILLIN (Unverified Allergy, Unknown, 07/02/15) Medication History Scheduled Amlodipine Besylate* (Amlodipine Besylate*), 10 MG ORAL DAILY, (Reported) Aspirin* (Aspir 81*), Unknown Dose ORAL DAILY, (Reported) Atenolol (Tenormin), 50 MG ORAL DAILY, (Reported) Atorvastatin Calcium* (Atorvastatin Calcium*), 80 MG ORAL BEDTIME, (Reported) Benazepril Hcl* (Benazepril Hcl*), 40 MG ORAL DAILY, (Reported) Cephalexin* (Keflex*), 500 MG ORAL EVERY 12 HOURS Colchicine (Colchicine), 1.2 MG PO ONCE Digoxin* (Digoxin*), 0.125 MG ORAL DAILY, (Reported) Doxycycline Hyclate* (Vibramycin*), 100 MG ORAL EVERY 12 HOURS Doxycycline Monohydrate* (Doxycycline Monohydrate*), 100 MG ORAL Q12H Famotidine (Pepcid), 40 MG PO DAILY Furosemide* (Lasix*), 20 MG ORAL DAILY, (Reported) Metoprolol Tartrate* (Metoprolol Tartrate*), Unknown Dose ORAL EVERY 12 HOURS, ( Reported) Potassium Chloride (K-Tab), 10 MEQ PO DAILY, (Reported) Warfarin Sod* (Warfarin Sod*), 4.5 MG ORAL EVERY SATURDAY, (Reported) Warfarin Sod* (Warfarin Sod*), MG ORAL DAILY, (Reported) Scheduled PRN Codeine/Promethazine Hcl* (Promethazine-Codeine Syrup*), 5 ML ORAL Q6H PRN for For Cough Guaifenesin/Codeine Phos* (Robitussin Ac*), 5 ML ORAL Q8HR PRN for For Cough Miscellaneous Medications Albuterol Sulfate* (Albuterol Sulfate Hhn*), 3 ML INH, (Reported) Patient History Healthcare decision maker Resuscitation status Advanced Directive on File Physical Exam Last 24 Hour Vital Signs Date Time Temp Pulse Resp B/P (MAP) Pulse Ox O2 Delivery O2 Flow Rate FiO2 11/12/19 09:57 114/61 11/12/19 09:50 75 11/12/19 08:02 97.7 61 18 114/61 (78) 95 11/12/19 04:00 97.9 70 19 116/63 (80) 97 11/12/19 04:00 76 11/12/19 00:00 75 11/12/19 00:00 98.0 79 20 135/71 (92) 96 11/11/19 21:00 Room Air 11/11/19 20:00 98.2 75 19 132/75 (94) 95 11/11/19 20:00 82 11/11/19 16:00 73 11/11/19 16:00 97.9 75 20 137/76 (96) 97 11/11/19 14:30 74 11/11/19 14:30 144/60 11/11/19 14:30 71 144/60 11/11/19 13:16 Room Air 11/11/19 12:00 98.0 75 20 148/81 (103) 97 11/11/19 11:50 98.5 71 18 144/60 100 Room Air 11/11/19 11:50 98.5 71 18 144/60 100 Room Air Intake and Output 11/11/19 11/12/19 19:00 07:00 Intake Total 1000 ml 300 ml Output Total 500 ml Balance 1000 ml -200 ml Intake Oral 300 ml IV Total 1000 ml Output Urine Total 500 ml # Voids 5 2 Laboratory Tests Test 11/12/19 04:00 11/12/19 05:00 White Blood Count 10.7 K/UL (4.8-10.8) Red Blood Count 4.70 M/UL (4.20-5.40) Hemoglobin 13.7 G/DL (12.0-16.0) Hematocrit 38.9 % (37.0-47.0) Mean Corpuscular Volume 83 FL (80-99) Mean Corpuscular Hemoglobin 29.2 PG (27.0-31.0) Mean Corpuscular Hemoglobin Concent 35.3 G/DL (32.0-36.0) Red Cell Distribution Width 12.3 % (11.6-14.8) Platelet Count 249 K/UL (150-450) Mean Platelet Volume 6.1 FL (6.5-10.1) L Neutrophils (%) (Auto) 46.7 % (45.0-75.0) Lymphocytes (%) (Auto) 30.2 % (20.0-45.0) Monocytes (%) (Auto) 8.3 % (1.0-10.0) Eosinophils (%) (Auto) 14.3 % (0.0-3.0) H Basophils (%) (Auto) 0.5 % (0.0-2.0) Prothrombin Time 33.1 SEC (9.30-11.50) H Prothromb Time International Ratio 3.3 (0.9-1.1) H Sodium Level 137 MMOL/L (136-145) Potassium Level 3.8 MMOL/L (3.5-5.1) Chloride Level 99 MMOL/L (98-107) Carbon Dioxide Level 26 MMOL/L (21-32) Anion Gap 12 mmol/L (5-15) Blood Urea Nitrogen 31 mg/dL (7-18) H Creatinine 1.8 MG/DL (0.55-1.30) #H Estimat Glomerular Filtration Rate 28.3 mL/min (>60) Glucose Level 153 MG/DL (74-106) H Calcium Level 8.2 MG/DL (8.5-10.1) L Total Bilirubin 1.0 MG/DL (0.2-1.0) Aspartate Amino Transf (AST/SGOT) 39 U/L (15-37) H Alanine Aminotransferase (ALT/SGPT) 33 U/L (12-78) Alkaline Phosphatase 129 U/L (46-116) H Troponin I 0.018 ng/mL (0.000-0.056) Total Protein 8.8 G/DL (6.4-8.2) H Albumin 4.3 G/DL (3.4-5.0) Globulin 4.5 g/dL Albumin/Globulin Ratio 1.0 (1.0-2.7) Height (Feet): 5 Height (Inches): 2.00 Weight (Pounds): 136 Medications Current Medications Medications (Trade) Dose Ordered Sig/Kody Route PRN Reason Start Time Stop Time Status Last Admin Dose Admin Amlodipine Besylate (Norvasc) 10 mg DAILY ORAL 11/11/19 14:30 12/11/19 14:29 11/11/19 14:30 Aspirin (Ecotrin) 81 mg DAILY ORAL 11/11/19 13:30 12/26/19 13:29 11/12/19 09:46 Atenolol (Tenormin) 25 mg DAILY ORAL 11/12/19 09:00 12/12/19 08:59 Atorvastatin Calcium (Lipitor) 80 mg BEDTIME ORAL 11/11/19 21:00 02/09/20 20:59 11/11/19 21:35 Benazepril HCl (Lotensin) 40 mg DAILY ORAL 11/11/19 14:30 12/11/19 14:29 11/12/19 09:57 Digoxin (Lanoxin) 0.125 mg DAILY ORAL 11/11/19 14:30 02/09/20 14:29 11/12/19 09:50 Famotidine (Pepcid) 40 mg DAILY ORAL 11/11/19 14:30 02/09/20 14:29 11/12/19 09:45 Furosemide (Lasix) 40 mg EVERY 12 HOURS IV 11/11/19 14:00 12/11/19 13:59 11/12/19 09:45 Potassium Chloride (K-Dur) 10 meq DAILY ORAL 11/11/19 14:30 02/09/20 14:29 11/12/19 09:45 Warfarin Sodium (Coumadin per pharmacy) 1 ea DAILY PRN MISC Per rx protocol 11/11/19 12:30 12/11/19 12:29 Warfarin Sodium (Warfarin Sod) 3 mg ONCE ORAL 11/12/19 17:00 11/12/19 19:00 Assessment/Plan Assessment/Plan: Hematology Consultaiton JORGE BRUNSON: Giuliano Tim RFC: Anemia eval DOS 11/12/2019 ID 64y old female presents with initially complained of general weakness After further questioning also describes exertional dyspnea Denies any active chest pain denies any vomiting denies any back or flank pain denies any dysuria frequency Patient reports that she has recently had a pacemaker placed she is otherwise a fairly poor historian Does not know his medications Denies any focal weakness denies any change in speech Reports that symptoms started 2 days ago however cannot give a specific time Coded Allergies: PENICILLIN (Unverified Allergy, Unknown, 07/02/15) COVID-19 Screening Contact w/high risk pt: No Recent Travel to affected area: No Experienced COVID-19 symptoms?: No COVID-19 Testing performed TOOL MAKER: No Patient History Past Medical History: see triage record Reviewed Nursing Documentation: PMH: Agreed; PSxH: Agreed Nursing Documentation-PMH Past Medical History: No History, Except For Hx Cardiac Problems: Yes - heart surgery (valve replacement), pacemaker, Gout Hx Hypertension: Yes Hx Cancer: No Hx Gastrointestinal Problems: No Hx Neurological Problems: No Surgical history -- open heart surgery, Family hx: mother had htn, dad in a war in [place] Social hx: she is widwed, 1 kid, used to clean houses, no tobacco, alcohol, illicit drugs All Other Systems: negative except mentioned in HPI ROS (review of systems): Constitutional: No fever, no chills, no night sweats ++ weakness is noted Skin: No rashes, lumps, itchiness, dryness ++lower ext edema noted HEENT: No LOUISE, ear ache, visual changes, double vision, nosebleeds Breasts: No lumps, pain, discharge Pulmonary: No cough, sputum, shortness of breath,++= congestion Cardiovascular: No chest pain, tightness, palpitations, syncope, PND GI: No nausea, vomiting, diarrhea, melena, hematochezia, change in appetite, : No dysuria, frequency, urgency, urinary incontinence, foamy urine Musculoskeletal: No joint swelling or muscle pain, trauma, back pain Neurologic: No dizziness, fainting, seizures, changes in smell or taste Psychiatric: No nervousness, stress, or depression, anxiety, hallucinations Endocrine: No weight change, heat or cold intolerance, tremor, insomnia Physical Exam: Vitals: reviewed General: NAD HEENT: nc, at Neck: supple Chest: crackles noted bilaterally+++ Cardiovascular: RRR, no s3, s4 Abdomen: soft, nontender, nd Extremities: no cce, normal range of motion Neuro: alert and oriented Labs: reviewed Imaging: noted Assessment and Recs # Hypercaogulable disorder with afib history and metallic valve replacement --> continue coimadin at this time, as per home dosing, inr goal 2-3 --> monitor for bleed # BARNEY --> cr 0.9-->1.8 --> may be due to diuretics # Hyperproteinemia --> with elev protien 8 --> spep ordered # CHF (congestive heart failure) --> diuresis as per cards # Suspected COVID-19 virus infection --> iso precautions --> per id # HTn --as per cards, atenolol --> recs noted # Status post pacemaker placement. # Status post aortic and mitral valve bioprosthesis. # Htn The timing of this note does not necessarily reflect the time of the patient was seen. Greatly appreciate consultation. Mahesh Call MD November 12, 2019 11:07
[2019-11-12] MEDS: Atenolol 25mg tab ORAL SCH (11:30)
[2019-11-12 12:00] VITALS: BP 119/75
--- NOTE | 2019-11-12 12:58 | Infectious Diseases Prog Note ---
Assessment/Plan Assessment/Plan IMPRESSION: Dyspnea rule out COVID-19. Mild pulmonary hypertension Hypertension, Gout, valvular heart disease, status post mitral & aortic bioprosthetic valve placement, Atrial fibrillation, RECOMMENDATION: Observe off antibiotic. We will follow up COVID-19 test. Subjective ROS Limited/Unobtainable: No Constitutional: Reports: no symptoms, fever Respiratory: Reports: no symptoms Gastrointestinal/Abdominal: Reports: no symptoms Genitourinary: Reports: no symptoms Neurologic: Reports: no symptoms Allergies: Coded Allergies: PENICILLIN (Unverified Allergy, Unknown, 07/02/15) Objective Vital Signs Last 24 Hour Vital Signs Date Time Temp Pulse Resp B/P (MAP) Pulse Ox O2 Delivery O2 Flow Rate FiO2 11/12/19 12:00 97.2 80 20 119/75 (90) 95 11/12/19 12:00 65 11/12/19 11:30 80 119/75 11/12/19 11:29 80 119/75 11/12/19 09:57 114/61 11/12/19 09:50 75 11/12/19 09:00 Room Air 11/12/19 08:02 97.7 61 18 114/61 (78) 95 11/12/19 08:00 70 11/12/19 04:00 97.9 70 19 116/63 (80) 97 11/12/19 04:00 76 11/12/19 00:00 75 11/12/19 00:00 98.0 79 20 135/71 (92) 96 11/11/19 21:00 Room Air 11/11/19 20:00 98.2 75 19 132/75 (94) 95 11/11/19 20:00 82 11/11/19 16:00 73 11/11/19 16:00 97.9 75 20 137/76 (96) 97 11/11/19 14:30 74 11/11/19 14:30 144/60 11/11/19 14:30 71 144/60 11/11/19 13:16 Room Air Height (Feet): 5 Height (Inches): 2.00 Weight (Pounds): 136 General Appearance: no acute distress HEENT: mucous membranes moist Respiratory/Chest: no respiratory distress Cardiovascular: normal rate, pacemaker/AICD Abdomen: soft, non tender Extremities: no edema Neurologic/Psychiatric: alert, oriented x 3, responsive, other - ambulatory in room Laboratory Tests Test 11/12/19 04:00 11/12/19 05:00 White Blood Count 10.7 K/UL (4.8-10.8) Red Blood Count 4.70 M/UL (4.20-5.40) Hemoglobin 13.7 G/DL (12.0-16.0) Hematocrit 38.9 % (37.0-47.0) Mean Corpuscular Volume 83 FL (80-99) Mean Corpuscular Hemoglobin 29.2 PG (27.0-31.0) Mean Corpuscular Hemoglobin Concent 35.3 G/DL (32.0-36.0) Red Cell Distribution Width 12.3 % (11.6-14.8) Platelet Count 249 K/UL (150-450) Mean Platelet Volume 6.1 FL (6.5-10.1) L Neutrophils (%) (Auto) 46.7 % (45.0-75.0) Lymphocytes (%) (Auto) 30.2 % (20.0-45.0) Monocytes (%) (Auto) 8.3 % (1.0-10.0) Eosinophils (%) (Auto) 14.3 % (0.0-3.0) H Basophils (%) (Auto) 0.5 % (0.0-2.0) Total Protein (PEP) Pending Albumin (PEP) Pending Globulin (PEP) Pending Albumin/Globulin Ratio Pending 1.0 (1.0-2.7) [id number] Pending Wycko-[id number] Pending Beta Globulins Pending Beta Gamma Globulin Pending PEP Abnormal Protein Bands Pending Protein Electrophoresis Interpret Pending Prothrombin Time 33.1 SEC (9.30-11.50) H Prothromb Time International Ratio 3.3 (0.9-1.1) H Sodium Level 137 MMOL/L (136-145) Potassium Level 3.8 MMOL/L (3.5-5.1) Chloride Level 99 MMOL/L (98-107) Carbon Dioxide Level 26 MMOL/L (21-32) Anion Gap 12 mmol/L (5-15) Blood Urea Nitrogen 31 mg/dL (7-18) H Creatinine 1.8 MG/DL (0.55-1.30) #H Estimat Glomerular Filtration Rate 28.3 mL/min (>60) Glucose Level 153 MG/DL (74-106) H Calcium Level 8.2 MG/DL (8.5-10.1) L Total Bilirubin 1.0 MG/DL (0.2-1.0) Aspartate Amino Transf (AST/SGOT) 39 U/L (15-37) H Alanine Aminotransferase (ALT/SGPT) 33 U/L (12-78) Alkaline Phosphatase 129 U/L (46-116) H Troponin I 0.018 ng/mL (0.000-0.056) Total Protein 8.8 G/DL (6.4-8.2) H Albumin 4.3 G/DL (3.4-5.0) Globulin 4.5 g/dL Current Medications Medications (Trade) Dose Ordered Sig/Kody Route PRN Reason Start Time Stop Time Status Last Admin Dose Admin Amlodipine Besylate (Norvasc) 10 mg DAILY ORAL 11/11/19 14:30 12/11/19 14:29 11/12/19 11:29 Aspirin (Ecotrin) 81 mg DAILY ORAL 11/11/19 13:30 12/26/19 13:29 11/12/19 09:46 Atenolol (Tenormin) 25 mg DAILY ORAL 11/12/19 09:00 12/12/19 08:59 11/12/19 11:30 Atorvastatin Calcium (Lipitor) 80 mg BEDTIME ORAL 11/11/19 21:00 02/09/20 20:59 11/11/19 21:35 Benazepril HCl (Lotensin) 40 mg DAILY ORAL 11/11/19 14:30 12/11/19 14:29 11/12/19 09:57 Digoxin (Lanoxin) 0.125 mg DAILY ORAL 11/11/19 14:30 02/09/20 14:29 11/12/19 09:50 Famotidine (Pepcid) 40 mg DAILY ORAL 11/11/19 14:30 02/09/20 14:29 11/12/19 09:45 Furosemide (Lasix) 40 mg EVERY 12 HOURS IV 11/11/19 14:00 12/11/19 13:59 11/12/19 09:45 Potassium Chloride (K-Dur) 10 meq DAILY ORAL 11/11/19 14:30 02/09/20 14:29 11/12/19 09:45 Warfarin Sodium (Coumadin per pharmacy) 1 ea DAILY PRN MISC Per rx protocol 11/11/19 12:30 12/11/19 12:29 Warfarin Sodium (Warfarin Sod) 3 mg ONCE ORAL 11/12/19 17:00 11/12/19 19:00 Álvaro Mix MD November 12, 2019 12:57
[2019-11-12 16:00] VITALS: BP 115/72
--- NOTE | 2019-11-12 16:05 | Cardiac Electrophysiology PN ---
Assessment/Plan Assessment/Plan 1. Atrial fibrillation. Currently patient's rate is controlled on Dig and atenolol and is ventricularly paced. The INR is therapeutic. Patient is also on Coumadin per pharmacy.Pacer check showed 26% atrial fib. 3. Congestive heart failure, EF of around 60%. Patient is on digoxin 0.125 mg daily, atenolol 25 mg daily, and benazepril 40 mg daily as well as Lasix 40 IV b.i.d. Change Lasix to 40 po daily 4. Status post [facility] Gene pacemaker placement 08/2018 . Interrogated and showed Nl fx 5. Status post aortic and mitral valve bioprosthesis. 6. Hypotension, DC Amlodipine and decrease Lasix DW RN Subjective Subjective [id number] 24 beats of VT. Pacer interrogation showed 25% atrial fib.BP running low. Objective Last 24 Hour Vital Signs Date Time Temp Pulse Resp B/P (MAP) Pulse Ox O2 Delivery O2 Flow Rate FiO2 11/12/19 12:00 97.2 80 20 119/75 (90) 95 11/12/19 12:00 65 11/12/19 11:30 80 119/75 11/12/19 11:29 80 119/75 11/12/19 09:57 114/61 11/12/19 09:50 75 11/12/19 09:00 Room Air 11/12/19 08:02 97.7 61 18 114/61 (78) 95 11/12/19 08:00 70 11/12/19 04:00 97.9 70 19 116/63 (80) 97 11/12/19 04:00 76 11/12/19 00:00 75 11/12/19 00:00 98.0 79 20 135/71 (92) 96 11/11/19 21:00 Room Air 11/11/19 20:00 98.2 75 19 132/75 (94) 95 11/11/19 20:00 82 Intake and Output 11/11/19 11/12/19 19:00 07:00 Intake Total 1000 ml 300 ml Output Total 500 ml Balance 1000 ml -200 ml Intake Oral 300 ml IV Total 1000 ml Output Urine Total 500 ml # Voids 5 2 Laboratory Tests Test 11/12/19 04:00 11/12/19 05:00 White Blood Count 10.7 K/UL (4.8-10.8) Red Blood Count 4.70 M/UL (4.20-5.40) Hemoglobin 13.7 G/DL (12.0-16.0) Hematocrit 38.9 % (37.0-47.0) Mean Corpuscular Volume 83 FL (80-99) Mean Corpuscular Hemoglobin 29.2 PG (27.0-31.0) Mean Corpuscular Hemoglobin Concent 35.3 G/DL (32.0-36.0) Red Cell Distribution Width 12.3 % (11.6-14.8) Platelet Count 249 K/UL (150-450) Mean Platelet Volume 6.1 FL (6.5-10.1) L Neutrophils (%) (Auto) 46.7 % (45.0-75.0) Lymphocytes (%) (Auto) 30.2 % (20.0-45.0) Monocytes (%) (Auto) 8.3 % (1.0-10.0) Eosinophils (%) (Auto) 14.3 % (0.0-3.0) H Basophils (%) (Auto) 0.5 % (0.0-2.0) Total Protein (PEP) Pending Albumin (PEP) Pending Globulin (PEP) Pending Albumin/Globulin Ratio Pending 1.0 (1.0-2.7) [id number]-[id number]-Ardjcfohs Pending Vrcva-9-Kaxhpgmzm Pending Beta Globulins Pending Beta Gamma Globulin Pending PEP Abnormal Protein Bands Pending Protein Electrophoresis Interpret Pending Prothrombin Time 33.1 SEC (9.30-11.50) H Prothromb Time International Ratio 3.3 (0.9-1.1) H Sodium Level 137 MMOL/L (136-145) Potassium Level 3.8 MMOL/L (3.5-5.1) Chloride Level 99 MMOL/L (98-107) Carbon Dioxide Level 26 MMOL/L (21-32) Anion Gap 12 mmol/L (5-15) Blood Urea Nitrogen 31 mg/dL (7-18) H Creatinine 1.8 MG/DL (0.55-1.30) #H Estimat Glomerular Filtration Rate 28.3 mL/min (>60) Glucose Level 153 MG/DL (74-106) H Calcium Level 8.2 MG/DL (8.5-10.1) L Total Bilirubin 1.0 MG/DL (0.2-1.0) Aspartate Amino Transf (AST/SGOT) 39 U/L (15-37) H Alanine Aminotransferase (ALT/SGPT) 33 U/L (12-78) Alkaline Phosphatase 129 U/L (46-116) H Troponin I 0.018 ng/mL (0.000-0.056) Total Protein 8.8 G/DL (6.4-8.2) H Albumin 4.3 G/DL (3.4-5.0) Globulin 4.5 g/dL Objective HEAD AND NECK: Shows mild JVD. LUNGS: Clear. CARDIOVASCULAR: Regular S1 and S2 with no gallop. Sternotomy scar is intact. The pacemaker in the left subclavian. ABDOMEN: Soft. EXTREMITIES: No pitting edema. Pb Fairchild MD November 12, 2019 16:05
--- NOTE | 2019-11-12 16:11 | CDS Physician Query ---
Clarification is required for compliance, coding accuracy, and to reflect severity of illness for this patient Dear Dr. Fairchild, Date: 11-12-19 CDS: Clair Angela "Heart Failure / CHF" documented in consultation" Congestive heart failure, EF of around 30%. Patient is on digoxin 0.125 mg daily, atenolol 25 mg daily, and benazepril 40 mg daily as well as Lasix 40 IV b.i.d". Please Clarify: Acuity [] Acute [] Chronic [] Acute on Chronic Type [] Systolic [] Diastolic [] Systolic & Diastolic (Combined) [] Other: Present on Admission: [] Yes [] No [] Clinically Undetermined Physician signature Date Please also document in your Progress Notes and/or Discharge Summary and indicate if the condition was present on admission. JESSICA
[2019-11-12] MEDS ORDERED: Warfarin Sodium 1mg ORAL SCH (17:00)
[2019-11-12 20:00] VITALS: BP 101/59
[2019-11-12] MEDS: Atorvastatin 80mg tab ORAL SCH (20:10)
[2019-11-13] VITALS (7 sets, daily range): BP systolic 95–139; BP diastolic 51–67
--- NOTE | 2019-11-13 04:15 | Progress Note ---
DATE: 11/11/2019 SUBJECTIVE: The patient is in bed, worried, questionable anxiety, flashbacks at nighttime, depressed mood, anhedonia, worthlessness, and hopelessness. MENTAL STATUS EXAMINATION: The patient is alert, oriented times self, place, situation, and date. Mood is depressed. Affect is constricted. Congruent with mood. Thought process is concrete. Thought content, no suicidal or homicidal ideation. Cognition is intact. Insight and judgment is fair. ASSESSMENT: 1. Questionable anxiety disorder. 2. Major depressive disorder. PLAN: 1. Recommend SSRI. 2. Provide the patient with reality orientation and supportive therapy. Iza Lopez M.D. DR: SAHIL JOB#: [id number] CC:
[2019-11-13 04:32] LABS: INR 3.5 (0.9-1.1)
--- NOTE | 2019-11-13 06:30 | History and Physical Report ---
DATE OF ADMISSION: 11/11/2019 HISTORY OF PRESENT ILLNESS: The patient is being admitted for respiratory congestion on chest x-ray and shortness of breath and cough, also rule out COVID and weak and has exertional dyspnea. Has history of AFib as well. The patient Coumadin, also had elevated INR. Also, admitted for CHF exacerbation. The patient also has exertional dyspnea. The patient is a poor historian, cannot give us a detailed report. PAST SURGICAL HISTORY: Pacemaker. Possible also valve replacement surgery. PAST MEDICAL HISTORY: CHF, gout, hypertension, and atrial fibrillation. Also, hyperlipidemia and GERD. MEDICATIONS: Coumadin, amlodipine, atenolol, benazepril, digoxin, famotidine, Lasix, and warfarin. ALLERGIES: Penicillin. FAMILY HISTORY: Noncontributory. SOCIAL HISTORY: Denies history of smoking. No history of alcohol or illicit drugs. REVIEW OF SYSTEMS: HEENT: Denies headaches. RESPIRATORY: Reports shortness of breath and cough for a couple of days. CARDIOVASCULAR: Denies any chest pain. Does have orthopnea. GASTROINTESTINAL: Denies nausea, vomiting, or diarrhea. EXTREMITIES: Does have angioedema. PHYSICAL EXAMINATION: VITAL SIGNS: Temperature 97.2, pulse is 65, and blood pressure is 119/75. HEENT: PERRLA. CHEST: Clear to auscultation. CARDIOVASCULAR: Regular rate and rhythm. Does have murmurs which are chronic. GASTROINTESTINAL: Soft, nontender, nondistended. No organomegaly. EXTREMITIES: 1+ edema. NEUROLOGICAL: Generalized weakness. LABORATORY AND DIAGNOSTIC DATA: WBC of 10.3, hemoglobin of 13.5, platelets 225. Sodium 137, potassium of 3.8, BUN of 31, creatinine 1.8, glucose of 158. Troponin 0.018. Chest x-ray shows bilateral congestion. ASSESSMENT AND PLAN: 1. CHF. 2. Respiratory insufficiency. 3. Pneumonia. 4. Rule out sepsis. 5. Acute renal failure. 6. Borderline elevated troponin. 7. Atrial fibrillation. 8. Elevated INR. I have asked Dr. Fairchild, Dr. Tolbert, Dr. Mahesh Call, Dr. Lopez as well as Dr. Álvaro Mix, and Dr. Blankenship to see the patient for the above-mentioned diagnoses and treatment and abnormalities and abnormal symptoms as well as abnormal imaging as well as abnormal labs. The patient also is depressed, lost her significant person and has depression. So, Dr. Lopez has been consulted for that reason and as well as Dr. Call, Dr. Álvaro Mix, Dr. Kushal Blankenship, Dr. Fairchild, and Dr. Tolbert for the above-mentioned diagnoses and abnormalities. Giuliano Krueger M.D. DR: RANDY JOB#: [id number] CC:
--- NOTE | 2019-11-13 08:39 | Hematology/Onc Progress Note ---
Assessment/Plan Assessment/Plan Assessment and Recs # Hypercaogulable disorder with afib history and metallic valve replacement --> continue Coumadin at this time, as per home dosing, inr goal 2-3 --> monitor for bleed --> inr trend: 3.5--> # BARNEY --> cr 0.9-->1.8 --> may be due to diuretics # Hyperproteinemia --> with elev protien 8 --> spep ordered # CHF (congestive heart failure) --> diuresis as per cards # Suspected COVID-19 virus infection --> iso precautions --> per id # HTn --as per cards, atenolol --> recs noted # Status post pacemaker placement. # Status post aortic and mitral valve bioprosthesis. # Htn The timing of this note does not necessarily reflect the time of the patient was seen. Greatly appreciate consultation. Subjective Allergies: Coded Allergies: PENICILLIN (Unverified Allergy, Unknown, 07/02/15) Subjective 11/12 awake and alert, inr 3.5, above therapeutic goal, hold dose Objective Objective Current Medications Medications (Trade) Dose Ordered Sig/Kody Route PRN Reason Start Time Stop Time Status Last Admin Dose Admin Aspirin (Ecotrin) 81 mg DAILY ORAL 11/11/19 13:30 12/26/19 13:29 11/12/19 09:46 Atenolol (Tenormin) 25 mg DAILY ORAL 11/12/19 09:00 12/12/19 08:59 11/12/19 11:30 Atorvastatin Calcium (Lipitor) 80 mg BEDTIME ORAL 11/11/19 21:00 02/09/20 20:59 11/12/19 20:10 Benazepril HCl (Lotensin) 40 mg DAILY ORAL 11/11/19 14:30 12/11/19 14:29 11/12/19 09:57 Digoxin (Lanoxin) 0.125 mg DAILY ORAL 11/11/19 14:30 02/09/20 14:29 11/12/19 09:50 Famotidine (Pepcid) 40 mg DAILY ORAL 11/11/19 14:30 02/09/20 14:29 11/12/19 09:45 Furosemide (Lasix) 40 mg DAILY ORAL 11/13/19 09:00 12/13/19 08:59 Potassium Chloride (K-Dur) 10 meq DAILY ORAL 11/11/19 14:30 02/09/20 14:29 11/12/19 09:45 Warfarin Sodium (Coumadin per pharmacy) 1 ea DAILY PRN MISC Per rx protocol 11/11/19 12:30 12/11/19 12:29 Last 24 Hour Vital Signs Date Time Temp Pulse Resp B/P (MAP) Pulse Ox O2 Delivery O2 Flow Rate FiO2 11/13/19 08:10 97.6 60 20 102/51 (68) 98 11/13/19 04:00 76 11/13/19 04:00 97.0 66 19 95/53 (67) 95 11/13/19 00:00 64 11/13/19 00:00 97.7 61 18 98/51 (67) 98 11/12/19 21:00 Room Air 11/12/19 20:00 60 11/12/19 20:00 97.9 60 19 101/59 (73) 99 11/12/19 16:00 60 11/12/19 16:00 97.0 60 18 115/72 (86) 97 11/12/19 12:00 97.2 80 20 119/75 (90) 95 11/12/19 12:00 65 11/12/19 11:30 80 119/75 11/12/19 11:29 80 119/75 11/12/19 09:57 114/61 11/12/19 09:50 75 11/12/19 09:00 Room Air 11/12/19 08:02 97.7 61 18 114/61 (78) 95 11/12/19 08:00 70 11/12/19 04:00 97.9 70 19 116/63 (80) 97 11/12/19 04:00 76 11/12/19 00:00 75 11/12/19 00:00 98.0 79 20 135/71 (92) 96 11/11/19 21:00 Room Air 11/11/19 20:00 98.2 75 19 132/75 (94) 95 11/11/19 20:00 82 11/11/19 16:00 73 11/11/19 16:00 97.9 75 20 137/76 (96) 97 11/11/19 14:30 74 11/11/19 14:30 144/60 11/11/19 14:30 71 144/60 11/11/19 13:16 Room Air 11/11/19 12:00 98.0 75 20 148/81 (103) 97 11/11/19 11:50 98.5 71 18 144/60 100 Room Air 11/11/19 11:50 98.5 71 18 144/60 100 Room Air 11/11/19 11:00 98.0 70 16 147/66 99 Room Air 11/11/19 09:40 98.0 66 19 158/65 100 Room Air 11/11/19 08:44 98.0 75 16 148/88 96 Room Air 11/11/19 08:44 78 18 Room Air Intake and Output 11/12/19 11/13/19 19:00 07:00 Intake Total 360 ml 500 ml Output Total 600 ml Balance 360 ml -100 ml Intake Oral 360 ml 500 ml Output Urine Total 600 ml # Voids 3 3 Labs Test 11/11/19 08:35 11/11/19 09:15 11/12/19 04:00 11/12/19 05:00 White Blood Count 10.3 K/UL (4.8-10.8) 10.7 K/UL (4.8-10.8) Red Blood Count 4.57 M/UL (4.20-5.40) 4.70 M/UL (4.20-5.40) Hemoglobin 13.5 G/DL (12.0-16.0) 13.7 G/DL (12.0-16.0) Hematocrit 37.9 % (37.0-47.0) 38.9 % (37.0-47.0) Mean Corpuscular Volume 83 FL (80-99) 83 FL (80-99) Mean Corpuscular Hemoglobin 29.6 PG (27.0-31.0) 29.2 PG (27.0-31.0) Mean Corpuscular Hemoglobin Concent 35.7 G/DL (32.0-36.0) 35.3 G/DL (32.0-36.0) Red Cell Distribution Width 12.7 % (11.6-14.8) 12.3 % (11.6-14.8) Platelet Count 225 K/UL (150-450) 249 K/UL (150-450) Mean Platelet Volume 6.3 FL (6.5-10.1) 6.1 FL (6.5-10.1) Neutrophils (%) (Auto) % (45.0-75.0) 46.7 % (45.0-75.0) Lymphocytes (%) (Auto) % (20.0-45.0) 30.2 % (20.0-45.0) Monocytes (%) (Auto) % (1.0-10.0) 8.3 % (1.0-10.0) Eosinophils (%) (Auto) % (0.0-3.0) 14.3 % (0.0-3.0) Basophils (%) (Auto) % (0.0-2.0) 0.5 % (0.0-2.0) Differential Total Cells Counted 100 Neutrophils % (Manual) 34 % (45-75) Lymphocytes % (Manual) 39 % (20-45) Monocytes % (Manual) 10 % (1-10) Eosinophils % (Manual) 17 % (0-3) Basophils % (Manual) 0 % (0-2) Band Neutrophils 0 % (0-8) Platelet Estimate Adequate Platelet Morphology Normal Red Blood Cell Morphology Normal Prothrombin Time 35.4 SEC (9.30-11.50) 33.1 SEC (9.30-11.50) Prothromb Time International Ratio 3.5 (0.9-1.1) 3.3 (0.9-1.1) Sodium Level 141 MMOL/L (136-145) 137 MMOL/L (136-145) Potassium Level 3.9 MMOL/L (3.5-5.1) 3.8 MMOL/L (3.5-5.1) Chloride Level 104 MMOL/L (98-107) 99 MMOL/L (98-107) Carbon Dioxide Level 27 MMOL/L (21-32) 26 MMOL/L (21-32) Anion Gap 11 mmol/L (5-15) 12 mmol/L (5-15) Blood Urea Nitrogen 19 mg/dL (7-18) 31 mg/dL (7-18) Creatinine 0.9 MG/DL (0.55-1.30) 1.8 MG/DL (0.55-1.30) Estimat Glomerular Filtration Rate > 60 mL/min (>60) 28.3 mL/min (>60) Glucose Level 103 MG/DL (74-106) 153 MG/DL (74-106) Lactic Acid Level 1.50 mmol/L (0.4-2.0) Calcium Level 8.8 MG/DL (8.5-10.1) 8.2 MG/DL (8.5-10.1) Phosphorus Level 3.1 MG/DL (2.5-4.9) Magnesium Level 2.0 MG/DL (1.8-2.4) Total Bilirubin 0.6 MG/DL (0.2-1.0) 1.0 MG/DL (0.2-1.0) Aspartate Amino Transf (AST/SGOT) 31 U/L (15-37) 39 U/L (15-37) Alanine Aminotransferase (ALT/SGPT) 29 U/L (12-78) 33 U/L (12-78) Alkaline Phosphatase 124 U/L (46-116) 129 U/L (46-116) Total Creatine Kinase 76 U/L (26-308) Creatine Kinase MB 0.6 NG/ML (0.0-3.6) Creatine Kinase MB Relative Index 0.7 Troponin I 0.000 ng/mL (0.000-0.056) 0.018 ng/mL (0.000-0.056) Pro-B-Type Natriuretic Peptide 141 pg/mL (0-125) Total Protein 8.8 G/DL (6.4-8.2) 8.8 G/DL (6.4-8.2) Albumin 4.3 G/DL (3.4-5.0) 4.3 G/DL (3.4-5.0) Globulin 4.5 g/dL 4.5 g/dL Albumin/Globulin Ratio 1.0 (1.0-2.7) 0.8 (0.7-1.7) 1.0 (1.0-2.7) Lipase 275 U/L (73-393) Digoxin Level < 0.3 NG/ML (0.9-2.0) Urine Color Pale yellow Urine Appearance Clear Urine pH 6 (4.5-8.0) Urine Specific [place] 1.010 (1.005-1.035) Urine Protein Negative (NEGATIVE) Urine Glucose (UA) Negative (NEGATIVE) Urine Ketones Negative (NEGATIVE) Urine Blood 1+ (NEGATIVE) Urine Nitrite Negative (NEGATIVE) Urine Bilirubin Negative (NEGATIVE) Urine Urobilinogen Normal MG/DL (0.0-1.0) Urine Leukocyte Esterase Negative (NEGATIVE) Urine RBC 0-2 /HPF (0 - 2) Urine WBC 0 /HPF (0 - 2) Urine Squamous Epithelial Cells Occasional /LPF Urine Bacteria Occasional /HPF (NONE) Total Protein (PEP) 8.3 g/dL (6.0-8.5) Albumin (PEP) 3.8 g/dL (2.9-4.4) Globulin (PEP) 4.5 g/dL (2.2-3.9) Mkprp-9-Uaivubadz 0.2 g/dL (0.0-0.4) Lcalw-3-Qaimamooa 0.8 g/dL (0.4-1.0) Beta Globulins 1.4 g/dL (0.7-1.3) Beta Gamma Globulin 2.1 g/dL (0.4-1.8) PEP Abnormal Protein Bands Not observed g/dL (Not Protein Electrophoresis Interpret Comment (.) Test 11/13/19 04:05 Prothrombin Time 35.3 SEC (9.30-11.50) Prothromb Time International Ratio 3.5 (0.9-1.1) Height (Feet): 5 Height (Inches): 2.00 Weight (Pounds): 136 Objective Physical Exam: Vitals: reviewed General: NAD HEENT: nc, at Neck: supple Chest: crackles noted bilaterally+++ Cardiovascular: RRR, no s3, s4 Abdomen: soft, nontender, nd Extremities: no cce, normal range of motion Neuro: alert and oriented Mahesh Call MD November 13, 2019 08:39
--- NOTE | 2019-11-13 08:53 | Cardiac Electrophysiology PN ---
Assessment/Plan Assessment/Plan 1. Atrial fibrillation. Currently patient's rate is controlled on Dig and atenolol and is ventricularly paced. The INR is therapeutic. On Coumadin per pharmacy. Pacer check showed 26% atrial fib. 2. Long run of 24 beats of V tach. Needs ischemia eval. No OK. 3. Congestive heart failure, EF of around 60%. DC Lasix 4. Status post St Gene pacemaker placement 08/2018 . Interrogated and showed Nl fx 5. Status post aortic and mitral valve bioprosthesis. 6. Hypotension, DCed Amlodipine. DC Lasix and Benazpril 7. ARF Cr increased to 1.[address] Tolbert Subjective Subjective Had 24 beats of VT. Pacer interrogation showed 25% atrial fib. Objective Last 24 Hour Vital Signs Date Time Temp Pulse Resp B/P (MAP) Pulse Ox O2 Delivery O2 Flow Rate FiO2 11/13/19 08:10 97.6 60 20 102/51 (68) 98 11/13/19 04:00 76 11/13/19 04:00 97.0 66 19 95/53 (67) 95 11/13/19 00:00 64 11/13/19 00:00 97.7 61 18 98/51 (67) 98 11/12/19 21:00 Room Air 11/12/19 20:00 60 11/12/19 20:00 97.9 60 19 101/59 (73) 99 11/12/19 16:00 60 11/12/19 16:00 97.0 60 18 115/72 (86) 97 11/12/19 12:00 97.2 80 20 119/75 (90) 95 11/12/19 12:00 65 11/12/19 11:30 80 119/75 11/12/19 11:29 80 119/75 11/12/19 09:57 114/61 11/12/19 09:50 75 11/12/19 09:00 Room Air Intake and Output 11/12/19 11/13/19 19:00 07:00 Intake Total 360 ml 500 ml Output Total 600 ml Balance 360 ml -100 ml Intake Oral 360 ml 500 ml Output Urine Total 600 ml # Voids 3 3 Laboratory Tests Test 11/13/19 04:05 Prothrombin Time 35.3 SEC (9.30-11.50) H Prothromb Time International Ratio 3.5 (0.9-1.1) H Microbiology Date/Time Source Procedure Growth Status 11/11/19 08:35 Blood Blood Culture - Preliminary NO GROWTH AFTER 24 HOURS Resulted 11/11/19 08:35 Blood Blood Culture - Preliminary NO GROWTH AFTER 24 HOURS Resulted Objective HEAD AND NECK: Shows mild JVD. LUNGS: Clear. CARDIOVASCULAR: Regular S1 and S2 with no gallop. Sternotomy scar is intact. The pacemaker in the left subclavian. ABDOMEN: Soft. EXTREMITIES: No pitting edema. Pb Fairchild MD November 13, 2019 08:53
[2019-11-13] MEDS ORDERED: Furosemide 40mg tab ORAL SCH (09:00)
[2019-11-13] MEDS: Aspirin EC 81mg tab ORAL SCH (10:26)
[2019-11-13] MEDS: Digoxin 0.125mg tab ORAL SCH (10:31)
[2019-11-13] MEDS: Atenolol 25mg tab ORAL SCH (10:32)
--- NOTE | 2019-11-13 10:38 | Pulmonology Progress Note ---
Subjective ROS Limited/Unobtainable: No Interval Events: None new Constitutional: Reports: no symptoms, fever HEENT: Repors: no symptoms Respiratory: Reports: no symptoms Cardiovascular: Reports: no symptoms Gastrointestinal/Abdominal: Reports: no symptoms Allergies: Coded Allergies: PENICILLIN (Unverified Allergy, Unknown, 07/02/15) Objective Last 24 Hour Vital Signs Date Time Temp Pulse Resp B/P (MAP) Pulse Ox O2 Delivery O2 Flow Rate FiO2 11/13/19 10:32 64 125/43 11/13/19 10:31 64 11/13/19 08:10 97.6 60 20 102/51 (68) 98 11/13/19 08:01 97.0 66 19 95/53 (67) 95 11/13/19 04:00 76 11/13/19 04:00 97.0 66 19 95/53 (67) 95 11/13/19 00:00 64 11/13/19 00:00 97.7 61 18 98/51 (67) 98 11/12/19 21:00 Room Air 11/12/19 20:00 60 11/12/19 20:00 97.9 60 19 101/59 (73) 99 11/12/19 16:00 60 11/12/19 16:00 97.0 60 18 115/72 (86) 97 11/12/19 12:00 97.2 80 20 119/75 (90) 95 11/12/19 12:00 65 11/12/19 11:30 80 119/75 11/12/19 11:29 80 119/75 Intake and Output 11/12/19 11/13/19 19:00 07:00 Intake Total 360 ml 500 ml Output Total 600 ml Balance 360 ml -100 ml Intake Oral 360 ml 500 ml Output Urine Total 600 ml # Voids 3 3 General Appearance: no acute distress HEENT: normocephalic Respiratory: chest wall non-tender, lungs clear Cardiovascular: normal peripheral pulses Abdomen: normal bowel sounds Microbiology Date/Time Source Procedure Growth Status 11/11/19 08:35 Blood Blood Culture - Preliminary NO GROWTH AFTER 24 HOURS Resulted 11/11/19 08:35 Blood Blood Culture - Preliminary NO GROWTH AFTER 24 HOURS Resulted Laboratory Tests 11/13/19 04:05: Prothrombin Time 35.3H, Prothromb Time International Ratio 3.5H Current Medications Medications (Trade) Dose Ordered Sig/Kody Route PRN Reason Start Time Stop Time Status Last Admin Dose Admin Aspirin (Ecotrin) 81 mg DAILY ORAL 11/11/19 13:30 12/26/19 13:29 11/13/19 10:26 Atenolol (Tenormin) 25 mg DAILY ORAL 11/12/19 09:00 12/12/19 08:59 11/13/19 10:32 Atorvastatin Calcium (Lipitor) 80 mg BEDTIME ORAL 11/11/19 21:00 02/09/20 20:59 11/12/19 20:10 Digoxin (Lanoxin) 0.125 mg DAILY ORAL 11/11/19 14:30 02/09/20 14:29 11/13/19 10:31 Famotidine (Pepcid) 40 mg DAILY ORAL 11/11/19 14:30 02/09/20 14:29 11/13/19 10:26 Potassium Chloride (K-Dur) 10 meq DAILY ORAL 11/11/19 14:30 02/09/20 14:29 11/13/19 10:32 Warfarin Sodium (Coumadin per pharmacy) 1 ea DAILY PRN MISC Per rx protocol 11/11/19 12:30 12/11/19 12:29 Assessment/Plan Assessment/Plan IMPRESSION: 1. Pulmonary edema. 2. Pacemaker. 3. History of cardiac surgery. 4. Gout. 5. Hypertension. 6. Coagulopathy. DISCUSSION: Continue home medications. Diuresis as needed Saturating well on RA I will follow carefully. Radha Hi Omar Syed MD November 13, 2019 10:38
--- NOTE | 2019-11-13 12:31 | Infectious Diseases Prog Note ---
Assessment/Plan Assessment/Plan IMPRESSION: Dyspnea rule out COVID-19. Mild pulmonary hypertension Hypertension, Gout, valvular heart disease, status post mitral & aortic bioprosthetic valve placement, Atrial fibrillation, Acute renal failure RECOMMENDATION: Observe off antibiotic. We will follow up COVID-19 test. Subjective ROS Limited/Unobtainable: No Constitutional: Reports: no symptoms Respiratory: Reports: no symptoms Cardiovascular: Reports: no symptoms Gastrointestinal/Abdominal: Reports: no symptoms Musculoskeletal: Reports: other - mild shoulder pain Allergies: Coded Allergies: PENICILLIN (Unverified Allergy, Unknown, 07/02/15) Objective Vital Signs Last 24 Hour Vital Signs Date Time Temp Pulse Resp B/P (MAP) Pulse Ox O2 Delivery O2 Flow Rate FiO2 11/13/19 10:32 64 125/43 11/13/19 10:31 64 11/13/19 08:10 97.6 60 20 102/51 (68) 98 11/13/19 08:01 97.0 66 19 95/53 (67) 95 11/13/19 08:00 60 11/13/19 04:00 76 11/13/19 04:00 97.0 66 19 95/53 (67) 95 11/13/19 00:00 64 11/13/19 00:00 97.7 61 18 98/51 (67) 98 11/12/19 21:00 Room Air 11/12/19 20:00 60 11/12/19 20:00 97.9 60 19 101/59 (73) 99 11/12/19 16:00 60 11/12/19 16:00 97.0 60 18 115/72 (86) 97 Height (Feet): 5 Height (Inches): 2.00 Weight (Pounds): 136 HEENT: mucous membranes moist Respiratory/Chest: lungs clear Cardiovascular: normal rate, pacemaker/AICD Abdomen: soft, non tender Extremities: no edema Neurologic/Psychiatric: alert, oriented x 3, responsive Microbiology Date/Time Source Procedure Growth Status 11/11/19 08:35 Blood Blood Culture - Preliminary NO GROWTH AFTER 24 HOURS Resulted 11/11/19 08:35 Blood Blood Culture - Preliminary NO GROWTH AFTER 24 HOURS Resulted Laboratory Tests Test 11/13/19 04:05 Prothrombin Time 35.3 SEC (9.30-11.50) H Prothromb Time International Ratio 3.5 (0.9-1.1) H Current Medications Medications (Trade) Dose Ordered Sig/Kody Route PRN Reason Start Time Stop Time Status Last Admin Dose Admin Aspirin (Ecotrin) 81 mg DAILY ORAL 11/11/19 13:30 12/26/19 13:29 11/13/19 10:26 Atenolol (Tenormin) 25 mg DAILY ORAL 11/12/19 09:00 12/12/19 08:59 11/13/19 10:32 Atorvastatin Calcium (Lipitor) 80 mg BEDTIME ORAL 11/11/19 21:00 02/09/20 20:59 11/12/19 20:10 Digoxin (Lanoxin) 0.125 mg DAILY ORAL 11/11/19 14:30 02/09/20 14:29 11/13/19 10:31 Famotidine (Pepcid) 40 mg DAILY ORAL 11/11/19 14:30 02/09/20 14:29 11/13/19 10:26 Potassium Chloride (K-Dur) 10 meq DAILY ORAL 11/11/19 14:30 02/09/20 14:29 11/13/19 10:32 Warfarin Sodium (Coumadin per pharmacy) 1 ea DAILY PRN MISC Per rx protocol 11/11/19 12:30 12/11/19 12:29 Warfarin Sodium (Warfarin Sod) 1 mg COUMADIN ORAL 11/13/19 17:00 11/13/19 17:59 Álvaro Mxi MD November 13, 2019 12:31
--- NOTE | 2019-11-13 13:25 | Consultation ---
Consult Note Consult Note I am asked to evaluate the patient at the request of Dr. Tim for rising creatinine Patient 64-year-old female was admitted 3 days ago AND her serum creatinine alcira from 0.9 to 1.8 Patient Interviewed via field education director, MICHAEL Monae Medication list reviewed Discussed with vascular sonographer Dr. Mendosa Patient presents with initially complained of general weakness and exertional dyspnea. Denies any active chest pain denies any vomiting denies any back or flank pain denies any dysuria frequency Patient reports that she has recently had a pacemaker placed she is otherwise a fairly poor historian Does not know his medications Denies any focal weakness denies any change in speech Reports that symptoms started 2 days ago however cannot give a specific time Allergies: PENICILLIN (Unverified Allergy, Unknown, 07/02/15) COVID-19 Screening Contact w/high risk pt: No Recent Travel to affected area: No Experienced COVID-19 symptoms?: No COVID-19 Testing performed STERILE TECHNICIAN: No Past Medical History: Hx Cardiac Problems: Yes - heart surgery (valve replacement), pacemaker, Gout Hx Hypertension: Yes . Assessment/Plan Acute renal failure multifactorial -Most likely due to combination of diuretics and ALPESH inhibitors -Episodic hypotension Other conditions: Atrial fibrillation Status post pacemaker August 2018 Longer run of ventricular tachycardia 24 beats Echocardiogram suggests ejection fraction of 60% Status post aortic and mitral valve bioprosthesis Suggestions Stop Lasix Stop Lotensin Check renal parameters tomorrow Avoid nephrotoxic's Keep the blood pressure above 100 systolic Monitor INR since the patient is on Coumadin Protonix and Colace p.o. Riaz Tolbert MD November 13, 2019 13:25
[2019-11-13] MEDS ORDERED: Warfarin Sodium 1mg ORAL SCH (17:00)
[2019-11-13] MEDS: Docusate 100mg cap ORAL SCH (17:08)
--- NOTE | 2019-11-13 17:11 | General Progress Note ---
Assessment/Plan Problem List: (1) Atrial fibrillation ICD Codes: I48.91 - Unspecified atrial fibrillation SNOMED: 27323855 (2) COVID-19 ruled out ICD Codes: Z03.818 - Encounter for observation for suspected exposure to other biological agents ruled out SNOMED: 312214717, 142389450 (3) Upper respiratory infection ICD Codes: J06.9 - Acute upper respiratory infection, unspecified SNOMED: 79182192 (4) Suspected COVID-19 virus infection ICD Codes: Z20.828 - Contact with and (suspected) exposure to other viral communicable diseases SNOMED: 622852748 (5) CHF (congestive heart failure) ICD Codes: I50.9 - Heart failure, unspecified SNOMED: 42859375 Status: progressing Assessment/Plan: chf a fib pulm edema sob coagulapathy coumadin per heme/onc cardiac cath per pouch maker had runs of [place] covid r/o Subjective ROS Limited/Unobtainable: Yes Allergies: Coded Allergies: PENICILLIN (Unverified Allergy, Unknown, 07/02/15) Objective Last 24 Hour Vital Signs Date Time Temp Pulse Resp B/P (MAP) Pulse Ox O2 Delivery O2 Flow Rate FiO2 11/13/19 12:00 60 11/13/19 12:00 Room Air 11/13/19 12:00 97.7 59 19 103/61 (75) 97 11/13/19 10:32 64 125/43 11/13/19 10:31 64 11/13/19 08:10 97.6 60 20 102/51 (68) 98 11/13/19 08:01 97.0 66 19 95/53 (67) 95 11/13/19 08:00 60 11/13/19 04:00 76 11/13/19 04:00 97.0 66 19 95/53 (67) 95 11/13/19 00:00 64 11/13/19 00:00 97.7 61 18 98/51 (67) 98 11/12/19 21:00 Room Air 11/12/19 20:00 60 11/12/19 20:00 97.9 60 19 101/59 (73) 99 Intake and Output 11/12/19 11/13/19 19:00 07:00 Intake Total 360 ml 500 ml Output Total 600 ml Balance 360 ml -100 ml Intake Oral 360 ml 500 ml Output Urine Total 600 ml # Voids 3 3 Laboratory Tests 11/13/19 04:05: Prothrombin Time 35.3H, Prothromb Time International Ratio 3.5H Height (Feet): 5 Height (Inches): 2.00 Weight (Pounds): 136 Giuliano Krueger MD November 13, 2019 17:11
[2019-11-13] MEDS: Atorvastatin 80mg tab ORAL SCH (21:06)
--- NOTE | 2019-11-13 22:35 | Psych Consult Progress Note ---
Psychiatry Progress Note Psychiatry Progress Note Medications Current Medications Medications (Trade) Dose Ordered Sig/Kody Route PRN Reason Start Time Stop Time Status Last Admin Dose Admin Aspirin (Ecotrin) 81 mg DAILY ORAL 11/11/19 13:30 12/26/19 13:29 11/13/19 10:26 Atenolol (Tenormin) 25 mg DAILY ORAL 11/12/19 09:00 12/12/19 08:59 11/13/19 10:32 Atorvastatin Calcium (Lipitor) 80 mg BEDTIME ORAL 11/11/19 21:00 02/09/20 20:59 11/13/19 21:06 Digoxin (Lanoxin) 0.125 mg DAILY ORAL 11/11/19 14:30 02/09/20 14:29 11/13/19 10:31 Docusate Sodium (Colace) 100 mg THREE TIMES A DAY ORAL 11/13/19 18:00 12/13/19 17:59 11/13/19 17:08 Pantoprazole (Protonix) 40 mg EVERY 12 HOURS ORAL 11/13/19 21:00 12/13/19 20:59 11/13/19 21:06 Warfarin Sodium (Coumadin per pharmacy) 1 ea DAILY PRN MISC Per rx protocol 11/11/19 12:30 12/11/19 12:29 Neurological/Psychiatric: Reports: anxiety, depressed, emotional problems Allergies: Coded Allergies: PENICILLIN (Unverified Allergy, Unknown, 07/02/15) Objective Data Height (Feet): 5 Height (Inches): 2.00 Weight (Pounds): 136 General Appearance: no apparent distress, alert, alert oriented x3 Additional Comments: alert, oriented times self, place, situation, and date. Mood is depressed. Affect is constricted. Congruent with mood. Thought process is concrete. Thought content, no suicidal or homicidal ideation. Cognition is intact. Insight and judgment is fair. Assessment/Plan Status: progressing Assessment/Plan: ASSESSMENT: 1. anxiety disorder. 2. Major depressive disorder. PLAN: 1. SSRI. 2. Provide the patient with reality orientation and supportive therapy. Iza Lopez MD November 13, 2019 22:35
[2019-11-14] VITALS: BP_SYST 132; BP_SYST 137; BP_DIAS 59; BP_DIAS 76
[2019-11-14 04:00] VITALS: BP 128/56
[2019-11-14 08:00] VITALS: BP 145/59
[2019-11-14] MEDS: Atenolol 25mg tab ORAL SCH (08:44)
[2019-11-14] MEDS: Digoxin 0.125mg tab ORAL SCH (08:44)
[2019-11-14] MEDS: Docusate 100mg cap ORAL SCH ×3 (08:44→17:16)
[2019-11-14] MEDS: Aspirin EC 81mg tab ORAL SCH (08:44)
[2019-11-14 08:51] LABS: BASOPHILS % (AUTO) 0.7 % (0.0-2.0); EOSINOPHILS % (AUTO) 14.2 % (0.0-3.0); HEMATOCRIT 33.7 % (37.0-47.0); HEMOGLOBIN 12.3 G/DL (12.0-16.0); LYMPHOCYTES % (AUTO) 29.7 % (20.0-45.0); MEAN CORPUSCULAR VOLUME 82 FL (80-99); MONOCYTES % (AUTO) 7.2 % (1.0-10.0); NEUTROPHILS % (AUTO) 48.2 % (45.0-75.0); PLATELET COUNT 249 K/UL (150-450); RED BLOOD COUNT 4.11 M/UL (4.20-5.40); WHITE BLOOD COUNT 11.3 K/UL (4.8-10.8)
[2019-11-14 09:17] LABS: INR 3.5 (0.9-1.1)
--- NOTE | 2019-11-14 09:41 | General Progress Note ---
Assessment/Plan Problem List: (1) Atrial fibrillation ICD Codes: I48.91 - Unspecified atrial fibrillation SNOMED: 28257253 (2) COVID-19 ruled out ICD Codes: Z03.818 - Encounter for observation for suspected exposure to other biological agents ruled out SNOMED: 377006022, 507242922 (3) Upper respiratory infection ICD Codes: J06.9 - Acute upper respiratory infection, unspecified SNOMED: 80709225 (4) Suspected COVID-19 virus infection ICD Codes: Z20.828 - Contact with and (suspected) exposure to other viral communicable diseases SNOMED: 618846600 (5) CHF (congestive heart failure) ICD Codes: I50.9 - Heart failure, unspecified SNOMED: 07059802 Status: progressing Assessment/Plan: chf a fib pulm edema improving sob improving coagulapathy improved coumadin per heme/onc cardiac cath per director of safety s/p runs of [place] covid r/o azotemia repeat bmp mild leukocytosis Subjective ROS Limited/Unobtainable: Yes Allergies: Coded Allergies: PENICILLIN (Unverified Allergy, Unknown, 07/02/15) Objective Last 24 Hour Vital Signs Date Time Temp Pulse Resp B/P (MAP) Pulse Ox O2 Delivery O2 Flow Rate FiO2 11/14/19 08:44 60 11/14/19 08:44 60 145/59 11/14/19 08:00 97.9 60 16 145/59 (87) 97 11/14/19 04:00 97.9 60 18 128/56 (80) 97 11/14/19 04:00 60 11/14/19 00:00 98.9 99 20 137/76 (96) 95 11/14/19 00:00 60 11/14/19 00:00 98.2 61 18 132/59 (83) 98 11/13/19 21:16 Room Air 11/13/19 20:00 97.7 60 18 139/59 (85) 95 11/13/19 20:00 60 11/13/19 16:00 98.1 70 18 103/67 (79) 96 11/13/19 16:00 60 11/13/19 12:00 60 11/13/19 12:00 Room Air 11/13/19 12:00 97.7 59 19 103/61 (75) 97 11/13/19 10:32 64 125/43 5/22/20 10:31 64 Intake and Output 11/13/19 11/14/19 19:00 07:00 Intake Total 120 ml Balance 120 ml Intake Oral 120 ml Laboratory Tests 11/14/19 07:10: White Blood Count 11.3H, Red Blood Count 4.11L, Hemoglobin 12.3, Hematocrit 33.7L, Mean Corpuscular Volume 82, Mean Corpuscular Hemoglobin 29.8, Mean Corpuscular Hemoglobin Concent 36.3H, Red Cell Distribution Width 12.0, Platelet Count 249, Mean Platelet Volume 6.1L, Neutrophils (%) (Auto) 48.2, Lymphocytes (%) (Auto) 29.7, Monocytes (%) (Auto) 7.2, Eosinophils (%) (Auto) 14.2H, Basophils (%) (Auto) 0.7, Prothrombin Time 34.6H, Prothromb Time International Ratio 3.5H, Sodium Level [Pending], Potassium Level [Pending], Chloride Level [Pending], Carbon Dioxide Level [Pending], Blood Urea Nitrogen [ Pending], Creatinine [Pending], Estimat Glomerular Filtration Rate [Pending], Glucose Level [Pending], Hemoglobin A1c [Pending], Uric Acid [Pending], Calcium Level [Pending], Phosphorus Level [Pending], Magnesium Level [Pending], Ferritin [Pending], Total Bilirubin [Pending], Gamma Glutamyl Transpeptidase [ Pending], Aspartate Amino Transf (AST/SGOT) [Pending], Alanine Aminotransferase (ALT/SGPT) [Pending], Alkaline Phosphatase [Pending], Total Creatine Kinase [ Pending], Troponin I 0.000, C-Reactive Protein, Quantitative [Pending], Pro-B- Type Natriuretic Peptide [Pending], Total Protein [Pending], Albumin [Pending], Globulin [Pending], Triglycerides Level [Pending], Cholesterol Level [Pending], LDL Cholesterol [Pending], HDL Cholesterol [Pending], Cholesterol/HDL Ratio [ Pending], Vitamin B12 Level [Pending], Folate [Pending], Thyroid Stimulating Hormone (TSH) [Pending], Cortisol AM Sample [Pending] Height (Feet): 5 Height (Inches): 2.00 Weight (Pounds): 136 Giuliano Krueger MD November 14, 2019 09:41
--- NOTE | 2019-11-14 10:00 | Hematology/Onc Progress Note ---
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 # Status post aortic and mitral valve bioprosthesis. # Htn The timing of this note does not necessarily reflect the time of the patient was seen. Greatly appreciate consultation. Subjective Allergies: Coded Allergies: PENICILLIN (Unverified Allergy, Unknown, 07/02/15) Subjective 11/12 awake and alert, inr 3.5, no events 11/13 labs reviewed, coagulopathy improved, room air Objective Objective Current Medications Medications (Trade) Dose Ordered Sig/Kody Route PRN Reason Start Time Stop Time Status Last Admin Dose Admin Aspirin (Ecotrin) 81 mg DAILY ORAL 11/11/19 13:30 12/26/19 13:29 11/14/19 08:44 Atenolol (Tenormin) 25 mg DAILY ORAL 11/12/19 09:00 12/12/19 08:59 11/14/19 08:44 Atorvastatin Calcium (Lipitor) 80 mg BEDTIME ORAL 11/11/19 21:00 02/09/20 20:59 11/13/19 21:06 Digoxin (Lanoxin) 0.125 mg DAILY ORAL 11/11/19 14:30 02/09/20 14:29 11/14/19 08:44 Docusate Sodium (Colace) 100 mg THREE TIMES A DAY ORAL 11/13/19 18:00 12/13/19 17:59 11/14/19 08:44 Pantoprazole (Protonix) 40 mg EVERY 12 HOURS ORAL 11/13/19 21:00 12/13/19 20:59 11/14/19 08:44 Warfarin Sodium (Coumadin per pharmacy) 1 ea DAILY PRN MISC Per rx protocol 5/20/20 12:30 12/11/19 12:29 Last 24 Hour Vital Signs Date Time Temp Pulse Resp B/P (MAP) Pulse Ox O2 Delivery O2 Flow Rate FiO2 11/14/19 08:44 60 11/14/19 08:44 60 145/59 11/14/19 08:00 97.9 60 16 145/59 (87) 97 11/14/19 08:00 61 11/14/19 04:00 97.9 60 18 128/56 (80) 97 11/14/19 04:00 60 11/14/19 00:00 98.9 99 20 137/76 (96) 95 11/14/19 00:00 60 11/14/19 00:00 98.2 61 18 132/59 (83) 98 11/13/19 21:16 Room Air 11/13/19 20:00 97.7 60 18 139/59 (85) 95 11/13/19 20:00 60 11/13/19 16:00 98.1 70 18 103/67 (79) 96 11/13/19 16:00 60 11/13/19 12:00 60 11/13/19 12:00 Room Air 11/13/19 12:00 97.7 59 19 103/61 (75) 97 11/13/19 10:32 64 125/43 11/13/19 10:31 64 11/13/19 08:10 97.6 60 20 102/51 (68) 98 11/13/19 08:01 97.0 66 19 95/53 (67) 95 11/13/19 08:00 60 11/13/19 04:00 76 11/13/19 04:00 97.0 66 19 95/53 (67) 95 11/13/19 00:00 64 11/13/19 00:00 97.7 61 18 98/51 (67) 98 11/12/19 21:00 Room Air 11/12/19 20:00 60 11/12/19 20:00 97.9 60 19 101/59 (73) 99 11/12/19 16:00 60 11/12/19 16:00 97.0 60 18 115/72 (86) 97 11/12/19 12:00 97.2 80 20 119/75 (90) 95 11/12/19 12:00 65 11/12/19 11:30 80 119/75 5/21/20 11:29 80 119/75 11/12/19 09:57 114/61 Intake and Output 11/13/19 11/14/19 18:59 06:59 Intake Total 120 ml Balance 120 ml Intake Oral 120 ml Labs Test 11/12/19 04:00 11/12/19 05:00 11/13/19 04:05 11/14/19 07:10 White Blood Count 10.7 K/UL (4.8-10.8) 11.3 K/UL (4.8-10.8) Red Blood Count 4.70 M/UL (4.20-5.40) 4.11 M/UL (4.20-5.40) Hemoglobin 13.7 G/DL (12.0-16.0) 12.3 G/DL (12.0-16.0) Hematocrit 38.9 % (37.0-47.0) 33.7 % (37.0-47.0) Mean Corpuscular Volume 83 FL (80-99) 82 FL (80-99) Mean Corpuscular Hemoglobin 29.2 PG (27.0-31.0) 29.8 PG (27.0-31.0) Mean Corpuscular Hemoglobin Concent 35.3 G/DL (32.0-36.0) 36.3 G/DL (32.0-36.0) Red Cell Distribution Width 12.3 % (11.6-14.8) 12.0 % (11.6-14.8) Platelet Count 249 K/UL (150-450) 249 K/UL (150-450) Mean Platelet Volume 6.1 FL (6.5-10.1) 6.1 FL (6.5-10.1) Neutrophils (%) (Auto) 46.7 % (45.0-75.0) 48.2 % (45.0-75.0) Lymphocytes (%) (Auto) 30.2 % (20.0-45.0) 29.7 % (20.0-45.0) Monocytes (%) (Auto) 8.3 % (1.0-10.0) 7.2 % (1.0-10.0) Eosinophils (%) (Auto) 14.3 % (0.0-3.0) 14.2 % (0.0-3.0) Basophils (%) (Auto) 0.5 % (0.0-2.0) 0.7 % (0.0-2.0) Total Protein (PEP) 8.3 g/dL (6.0-8.5) Albumin (PEP) 3.8 g/dL (2.9-4.4) Globulin (PEP) 4.5 g/dL (2.2-3.9) Albumin/Globulin Ratio 0.8 (0.7-1.7) 1.0 (1.0-2.7) Mvbby-5-Cefuixbbp 0.2 g/dL (0.0-0.4) Vfjib-8-Opgjeqcpv 0.8 g/dL (0.4-1.0) Beta Globulins 1.4 g/dL (0.7-1.3) Beta Gamma Globulin 2.1 g/dL (0.4-1.8) PEP Abnormal Protein Bands Not observed g/dL (Not Protein Electrophoresis Interpret Comment (.) Prothrombin Time 33.1 SEC (9.30-11.50) 35.3 SEC (9.30-11.50) 34.6 SEC (9.30-11.50) Prothromb Time International Ratio 3.3 (0.9-1.1) 3.5 (0.9-1.1) 3.5 (0.9-1.1) Sodium Level 137 MMOL/L (136-145) Potassium Level 3.8 MMOL/L (3.5-5.1) Chloride Level 99 MMOL/L (98-107) Carbon Dioxide Level 26 MMOL/L (21-32) Anion Gap 12 mmol/L (5-15) Blood Urea Nitrogen 31 mg/dL (7-18) Creatinine 1.8 MG/DL (0.55-1.30) Estimat Glomerular Filtration Rate 28.3 mL/min (>60) Glucose Level 153 MG/DL (74-106) Calcium Level 8.2 MG/DL (8.5-10.1) Total Bilirubin 1.0 MG/DL (0.2-1.0) Aspartate Amino Transf (AST/SGOT) 39 U/L (15-37) Alanine Aminotransferase (ALT/SGPT) 33 U/L (12-78) Alkaline Phosphatase 129 U/L (46-116) Troponin I 0.018 ng/mL (0.000-0.056) 0.000 ng/mL (0.000-0.056) Total Protein 8.8 G/DL (6.4-8.2) Albumin 4.3 G/DL (3.4-5.0) Globulin 4.5 g/dL Height (Feet): 5 Height (Inches): 2.00 Weight (Pounds): 136 Objective Physical Exam: Vitals: reviewed General: NAD HEENT: nc, at Neck: supple Chest: crackles noted bilaterally+++ Cardiovascular: RRR, no s3, s4 Abdomen: soft, nontender, nd Extremities: no cce, normal range of motion Neuro: alert and oriented Mahesh Call MD November 14, 2019 10:00
[2019-11-14 10:12] LABS: ALANINE AMINOTRANSFERASE 28 U/L (12-78); ALBUMIN 4.2 G/DL (3.4-5.0); ALKALINE PHOSPHATASE 116 U/L (46-116); ANION GAP 10 mmol/L (5-15); ASPARTATE AMINO TRANSFERASE 31 U/L (15-37); BILIRUBIN,TOTAL 1.2 MG/DL (0.2-1.0); CALCIUM 8.4 MG/DL (8.5-10.1); CARBON DIOXIDE 26 MMOL/L (21-32); CHLORIDE 103 MMOL/L (98-107); CHOLESTEROL 99 MG/DL (< 200); CREATINE KINASE 94 U/L (26-308); FERRITIN 229 NG/ML (8-388); GAMMA GLUTAMYL TRANSPEPTIDASE 64 U/L (5-85); HDL CHOLESTEROL 28 MG/DL (40-60); PHOSPHORUS 2.6 MG/DL (2.5-4.9); POTASSIUM 4.7 MMOL/L (3.5-5.1); SODIUM 139 MMOL/L (136-145); TRIGLYCERIDES 188 MG/DL (30-150)
[2019-11-14 10:14] LABS: BILIRUBIN,DIRECT 0.2 MG/DL (0.0-0.3)
[2019-11-14 10:19] LABS: BLOOD UREA NITROGEN 35 mg/dL (7-18)
--- NOTE | 2019-11-14 10:53 | Pulmonology Progress Note ---
Subjective ROS Limited/Unobtainable: Yes Interval Events: None new Constitutional: Reports: no symptoms HEENT: Repors: no symptoms Respiratory: Reports: no symptoms Cardiovascular: Reports: no symptoms Gastrointestinal/Abdominal: Reports: no symptoms Musculoskeletal: Reports: other - mild shoulder pain Allergies: Coded Allergies: PENICILLIN (Unverified Allergy, Unknown, 07/02/15) Objective Last 24 Hour Vital Signs Date Time Temp Pulse Resp B/P (MAP) Pulse Ox O2 Delivery O2 Flow Rate FiO2 11/14/19 08:44 60 11/14/19 08:44 60 145/59 11/14/19 08:00 97.9 60 16 145/59 (87) 97 11/14/19 08:00 61 11/14/19 04:00 97.9 60 18 128/56 (80) 97 11/14/19 04:00 60 11/14/19 00:00 98.9 99 20 137/76 (96) 95 11/14/19 00:00 60 11/14/19 00:00 98.2 61 18 132/59 (83) 98 11/13/19 21:16 Room Air 11/13/19 20:00 97.7 60 18 139/59 (85) 95 11/13/19 20:00 60 11/13/19 16:00 98.1 70 18 103/67 (79) 96 11/13/19 16:00 60 11/13/19 12:00 60 11/13/19 12:00 Room Air 11/13/19 12:00 97.7 59 19 103/61 (75) 97 Intake and Output 11/13/19 11/14/19 19:00 07:00 Intake Total 120 ml Balance 120 ml Intake Oral 120 ml General Appearance: no acute distress HEENT: normocephalic Respiratory: chest wall non-tender, lungs clear Cardiovascular: normal peripheral pulses Abdomen: normal bowel sounds Laboratory Tests 11/14/19 07:10: White Blood Count 11.3H, Red Blood Count 4.11L, Hemoglobin 12.3, Hematocrit 33.7L, Mean Corpuscular Volume 82, Mean Corpuscular Hemoglobin 29.8, Mean Corpuscular Hemoglobin Concent 36.3H, Red Cell Distribution Width 12.0, Platelet Count 249, Mean Platelet Volume 6.1L, Neutrophils (%) (Auto) 48.2, Lymphocytes (%) (Auto) 29.7, Monocytes (%) (Auto) 7.2, Eosinophils (%) (Auto) 14.2H, Basophils (%) (Auto) 0.7, Prothrombin Time 34.6H, Prothromb Time International Ratio 3.5H, Sodium Level 139, Potassium Level 4.7, Chloride Level 103, Carbon Dioxide Level 26, Anion Gap 10, Blood Urea Nitrogen 35H, Creatinine 1.0, Estimat Glomerular Filtration Rate 55.7, Glucose Level 115H, Hemoglobin A1c 6.2H, Uric Acid 10.6H, Calcium Level 8.4L, Phosphorus Level 2.6, Magnesium Level 2.5H, Ferritin 229, Total Bilirubin 1.2H, Direct Bilirubin 0.2, Gamma Glutamyl Transpeptidase 64, Aspartate Amino Transf (AST/SGOT) 31, Alanine Aminotransferase (ALT/SGPT) 28, Alkaline Phosphatase 116, Total Creatine Kinase 94, Troponin I 0.000, C-Reactive Protein, Quantitative 1.0H, Pro-B-Type Natriuretic Peptide 135H, Total Protein 8.4H, Albumin 4.2, Globulin 4.2, Albumin /Globulin Ratio 1.0, Triglycerides Level 188H, Cholesterol Level 99, LDL Cholesterol 47, HDL Cholesterol 28L, Cholesterol/HDL Ratio 3.5, Vitamin B12 Level 383, Folate 18.8, Thyroid Stimulating Hormone (TSH) 2.376, Cortisol AM Sample [Pending] Current Medications Medications (Trade) Dose Ordered Sig/Kody Route PRN Reason Start Time Stop Time Status Last Admin Dose Admin Aspirin (Ecotrin) 81 mg DAILY ORAL 11/11/19 13:30 12/26/19 13:29 11/14/19 08:44 Atenolol (Tenormin) 25 mg DAILY ORAL 11/12/19 09:00 12/12/19 08:59 11/14/19 08:44 Atorvastatin Calcium (Lipitor) 80 mg BEDTIME ORAL 11/11/19 21:00 02/09/20 20:59 11/13/19 21:06 Digoxin (Lanoxin) 0.125 mg DAILY ORAL 11/11/19 14:30 02/09/20 14:29 11/14/19 08:44 Docusate Sodium (Colace) 100 mg THREE TIMES A DAY ORAL 11/13/19 18:00 12/13/19 17:59 11/14/19 08:44 Pantoprazole (Protonix) 40 mg EVERY 12 HOURS ORAL 11/13/19 21:00 12/13/19 20:59 11/14/19 08:44 Warfarin Sodium (Coumadin per pharmacy) 1 ea DAILY PRN MISC Per rx protocol 11/11/19 12:30 12/11/19 12:29 Warfarin Sodium (Warfarin Sod) 1 mg COUMADIN ORAL 11/14/19 17:00 11/19/19 16:59 Assessment/Plan Assessment/Plan IMPRESSION: 1. Pulmonary edema. 2. Pacemaker. 3. History of cardiac surgery. 4. Gout. 5. Hypertension. 6. Coagulopathy. DISCUSSION: Continue home medications. Diuresis as needed Saturating well on RA I will follow carefully. Kushal Blankenship M.D. Kushal Blankenship MD November 14, 2019 10:53
[2019-11-14 12:04] VITALS: BP 128/59
--- NOTE | 2019-11-14 13:52 | Nephrology Progress Note ---
Assessment/Plan Problem List: (1) BARNEY (acute kidney injury) (2) Atrial fibrillation (3) Pacemaker (4) Hypotension Assessment: Episodic Assessment Acute renal failure multifactorial -Most likely due to combination of diuretics and ALPESH inhibitors -Episodic hypotension Other conditions: Atrial fibrillation Elevated hemoglobin A1c to 6.2 Status post pacemaker August 2018 Longer run of ventricular tachycardia 24 beats Echocardiogram suggests ejection fraction of 60% Status post aortic and mitral valve bioprosthesis Plan Off Lotensin and Lasix Check renal parameters Avoid nephrotoxic's Keep the blood pressure above 100 systolic Monitor INR since the patient is on Coumadin Protonix and Colace p.o. Allopurinol for high uric acid Fish oil for high triglycerides Objective Objective Last 24 Hour Vital Signs Date Time Temp Pulse Resp B/P (MAP) Pulse Ox O2 Delivery O2 Flow Rate FiO2 11/14/19 12:04 97.9 82 16 128/59 (82) 98 11/14/19 12:00 60 11/14/19 09:00 Room Air 11/14/19 08:44 60 11/14/19 08:44 60 145/59 11/14/19 08:00 97.9 60 16 145/59 (87) 97 11/14/19 08:00 61 11/14/19 04:00 97.9 60 18 128/56 (80) 97 11/14/19 04:00 60 11/14/19 00:00 98.9 99 20 137/76 (96) 95 11/14/19 00:00 60 11/14/19 00:00 98.2 61 18 132/59 (83) 98 11/13/19 21:16 Room Air 11/13/19 20:00 97.7 60 18 139/59 (85) 95 11/13/19 20:00 60 11/13/19 16:00 98.1 70 18 103/67 (79) 96 11/13/19 16:00 60 Intake and Output 11/13/19 11/14/19 19:00 07:00 Intake Total 120 ml Balance 120 ml Intake Oral 120 ml Laboratory Tests 11/14/19 07:10: White Blood Count 11.3H, Red Blood Count 4.11L, Hemoglobin 12.3, Hematocrit 33.7L, Mean Corpuscular Volume 82, Mean Corpuscular Hemoglobin 29.8, Mean Corpuscular Hemoglobin Concent 36.3H, Red Cell Distribution Width 12.0, Platelet Count 249, Mean Platelet Volume 6.1L, Neutrophils (%) (Auto) 48.2, Lymphocytes (%) (Auto) 29.7, Monocytes (%) (Auto) 7.2, Eosinophils (%) (Auto) 14.2H, Basophils (%) (Auto) 0.7, Prothrombin Time 34.6H, Prothromb Time International Ratio 3.5H, Sodium Level 139, Potassium Level 4.7, Chloride Level 103, Carbon Dioxide Level 26, Anion Gap 10, Blood Urea Nitrogen 35H, Creatinine 1.0, Estimat Glomerular Filtration Rate 55.7, Glucose Level 115H, Hemoglobin A1c 6.2H, Uric Acid 10.6H, Calcium Level 8.4L, Phosphorus Level 2.6, Magnesium Level 2.5H, Ferritin 229, Total Bilirubin 1.2H, Direct Bilirubin 0.2, Gamma Glutamyl Transpeptidase 64, Aspartate Amino Transf (AST/SGOT) 31, Alanine Aminotransferase (ALT/SGPT) 28, Alkaline Phosphatase 116, Total Creatine Kinase 94, Troponin I 0.000, C-Reactive Protein, Quantitative 1.0H, Pro-B-Type Natriuretic Peptide 135H, Total Protein 8.4H, Albumin 4.2, Globulin 4.2, Albumin /Globulin Ratio 1.0, Triglycerides Level 188H, Cholesterol Level 99, LDL Cholesterol 47, HDL Cholesterol 28L, Cholesterol/HDL Ratio 3.5, Vitamin B12 Level 383, Folate 18.8, Thyroid Stimulating Hormone (TSH) 2.376, Cortisol AM Sample [Pending] Height (Feet): 5 Height (Inches): 2.00 Weight (Pounds): 136 Riaz Tolbert MD November 14, 2019 13:52
--- NOTE | 2019-11-14 14:04 | Cardiac Electrophysiology PN ---
Assessment/Plan Assessment/Plan 1. Atrial fibrillation. Continue Dig and atenolol. The INR is therapeutic. On Coumadin per pharmacy. Pacer check showed 26% atrial fib. 2. Long run of 24 beats of V tach. Needs ischemia eval. No OR. 3. Congestive heart failure, EF of around 60%. DC Lasix 4. Status post St Gene pacemaker placement 08/2018 . Interrogated and showed Nl fx 5. Status post aortic and mitral valve bioprosthesis. 6. Hypotension, DCed Amlodipine, Lasix and Benazpril 7. ARF Cr increased to 1.[address] Tolbert Subjective Subjective Had 24 beats of VT. Pacer interrogation showed 25% atrial fib.Had charan event despite pacer! Objective Last 24 Hour Vital Signs Date Time Temp Pulse Resp B/P (MAP) Pulse Ox O2 Delivery O2 Flow Rate FiO2 11/14/19 12:04 97.9 82 16 128/59 (82) 98 11/14/19 12:00 60 11/14/19 09:00 Room Air 11/14/19 08:44 60 11/14/19 08:44 60 145/59 11/14/19 08:00 97.9 60 16 145/59 (87) 97 11/14/19 08:00 61 11/14/19 04:00 97.9 60 18 128/56 (80) 97 11/14/19 04:00 60 11/14/19 00:00 98.9 99 20 137/76 (96) 95 11/14/19 00:00 60 11/14/19 00:00 98.2 61 18 132/59 (83) 98 11/13/19 21:16 Room Air 11/13/19 20:00 97.7 60 18 139/59 (85) 95 11/13/19 20:00 60 11/13/19 16:00 98.1 70 18 103/67 (79) 96 11/13/19 16:00 60 Intake and Output 11/13/19 11/14/19 19:00 07:00 Intake Total 120 ml Balance 120 ml Intake Oral 120 ml Laboratory Tests Test 11/14/19 07:10 White Blood Count 11.3 K/UL (4.8-10.8) H Red Blood Count 4.11 M/UL (4.20-5.40) L Hemoglobin 12.3 G/DL (12.0-16.0) Hematocrit 33.7 % (37.0-47.0) L Mean Corpuscular Volume 82 FL (80-99) Mean Corpuscular Hemoglobin 29.8 PG (27.0-31.0) Mean Corpuscular Hemoglobin Concent 36.3 G/DL (32.0-36.0) H Red Cell Distribution Width 12.0 % (11.6-14.8) Platelet Count 249 K/UL (150-450) Mean Platelet Volume 6.1 FL (6.5-10.1) L Neutrophils (%) (Auto) 48.2 % (45.0-75.0) Lymphocytes (%) (Auto) 29.7 % (20.0-45.0) Monocytes (%) (Auto) 7.2 % (1.0-10.0) Eosinophils (%) (Auto) 14.2 % (0.0-3.0) H Basophils (%) (Auto) 0.7 % (0.0-2.0) Prothrombin Time 34.6 SEC (9.30-11.50) H Prothromb Time International Ratio 3.5 (0.9-1.1) H Sodium Level 139 MMOL/L (136-145) Potassium Level 4.7 MMOL/L (3.5-5.1) Chloride Level 103 MMOL/L (98-107) Carbon Dioxide Level 26 MMOL/L (21-32) Anion Gap 10 mmol/L (5-15) Blood Urea Nitrogen 35 mg/dL (7-18) H Creatinine 1.0 MG/DL (0.55-1.30) Estimat Glomerular Filtration Rate 55.7 mL/min (>60) Glucose Level 115 MG/DL (74-106) H Hemoglobin A1c 6.2 % (4.3-6.0) H Uric Acid 10.6 MG/DL (2.6-7.2) H Calcium Level 8.4 MG/DL (8.5-10.1) L Phosphorus Level 2.6 MG/DL (2.5-4.9) Magnesium Level 2.5 MG/DL (1.8-2.4) H Ferritin 229 NG/ML (8-388) Total Bilirubin 1.2 MG/DL (0.2-1.0) H Direct Bilirubin 0.2 MG/DL (0.0-0.3) Gamma Glutamyl Transpeptidase 64 U/L (5-85) Aspartate Amino Transf (AST/SGOT) 31 U/L (15-37) Alanine Aminotransferase (ALT/SGPT) 28 U/L (12-78) Alkaline Phosphatase 116 U/L (46-116) Total Creatine Kinase 94 U/L (26-308) Troponin I 0.000 ng/mL (0.000-0.056) C-Reactive Protein, Quantitative 1.0 mg/dL (0.00-0.90) H Pro-B-Type Natriuretic Peptide 135 pg/mL (0-125) H Total Protein 8.4 G/DL (6.4-8.2) H Albumin 4.2 G/DL (3.4-5.0) Globulin 4.2 g/dL Albumin/Globulin Ratio 1.0 (1.0-2.7) Triglycerides Level 188 MG/DL (30-150) H Cholesterol Level 99 MG/DL (< 200) LDL Cholesterol 47 mg/dL (<100) HDL Cholesterol 28 MG/DL (40-60) L Cholesterol/HDL Ratio 3.5 (3.3-4.4) Vitamin B12 Level 383 PG/ML (193-986) Folate 18.8 NG/ML (8.6-58.9) Thyroid Stimulating Hormone (TSH) 2.376 uiU/mL (0.358-3.740) Cortisol AM Sample Pending Objective HEAD AND NECK: Shows mild JVD. LUNGS: Clear. CARDIOVASCULAR: Regular S1 and S2 with no gallop. Sternotomy scar is intact. The pacemaker in the left subclavian. ABDOMEN: Soft. EXTREMITIES: No pitting edema. Pb Fairchild MD November 14, 2019 14:04
[2019-11-14 15:52] VITALS: BP 140/61
[2019-11-14] MEDS ORDERED: Warfarin Sodium 1mg ORAL SCH (17:00)
[2019-11-14 20:00] VITALS: BP 149/61
[2019-11-14] MEDS: Atorvastatin 80mg tab ORAL SCH (20:22)
[2019-11-15] VITALS: BP 145/57
[2019-11-15 04:00] VITALS: BP 146/58
[2019-11-15 05:44] LABS: INR 3.4 (0.9-1.1)
[2019-11-15 08:00] VITALS: BP 113/44
[2019-11-15] MEDS: Digoxin 0.125mg tab ORAL SCH (09:03)
[2019-11-15] MEDS: Aspirin EC 81mg tab ORAL SCH (09:03)
[2019-11-15] MEDS: Docusate 100mg cap ORAL SCH ×3 (09:03→18:04)
[2019-11-15] MEDS: Atenolol 25mg tab ORAL SCH (09:03)
--- NOTE | 2019-11-15 10:13 | Pulmonology Progress Note ---
Subjective ROS Limited/Unobtainable: Yes Interval Events: None new Constitutional: Reports: no symptoms HEENT: Repors: no symptoms Respiratory: Reports: no symptoms Cardiovascular: Reports: no symptoms Gastrointestinal/Abdominal: Reports: no symptoms Musculoskeletal: Reports: other - mild shoulder pain Allergies: Coded Allergies: PENICILLIN (Unverified Allergy, Unknown, 07/02/15) Objective Last 24 Hour Vital Signs Date Time Temp Pulse Resp B/P (MAP) Pulse Ox O2 Delivery O2 Flow Rate FiO2 11/15/19 09:03 74 11/15/19 09:03 67 113/44 11/15/19 08:00 97.7 67 18 113/44 (67) 97 11/15/19 04:00 60 11/15/19 04:00 97.7 60 18 146/58 (87) 99 11/15/19 00:00 61 11/15/19 00:00 96.5 78 18 145/57 (86) 98 11/14/19 21:00 Room Air 11/14/19 20:00 97.8 60 17 149/61 (90) 97 11/14/19 20:00 60 11/14/19 16:00 60 11/14/19 15:52 98.1 98 17 140/61 (87) 98 11/14/19 12:04 97.9 82 16 128/59 (82) 98 11/14/19 12:00 60 Intake and Output 11/14/19 11/15/19 19:00 07:00 Intake Total 850 ml 60 ml Balance 850 ml 60 ml Intake Oral 850 ml 60 ml # Voids 7 2 General Appearance: no acute distress HEENT: normocephalic Respiratory: chest wall non-tender, lungs clear Cardiovascular: normal peripheral pulses Abdomen: normal bowel sounds Laboratory Tests 11/15/19 04:15: Prothrombin Time 34.5H, Prothromb Time International Ratio 3.4H Current Medications Medications (Trade) Dose Ordered Sig/Kody Route PRN Reason Start Time Stop Time Status Last Admin Dose Admin Allopurinol (allopurinoL) 300 mg DAILY ORAL 11/15/19 09:00 12/15/19 08:59 11/15/19 09:03 Aspirin (Ecotrin) 81 mg DAILY ORAL 11/11/19 13:30 12/26/19 13:29 11/15/19 09:03 Atenolol (Tenormin) 25 mg DAILY ORAL 11/12/19 09:00 12/12/19 08:59 11/15/19 09:03 Atorvastatin Calcium (Lipitor) 80 mg BEDTIME ORAL 11/11/19 21:00 02/09/20 20:59 11/14/19 20:22 Digoxin (Lanoxin) 0.125 mg DAILY ORAL 11/11/19 14:30 02/09/20 14:29 11/15/19 09:03 Docusate Sodium (Colace) 100 mg THREE TIMES A DAY ORAL 11/13/19 18:00 12/13/19 17:59 11/15/19 09:03 Fish Oil (Fish Oil) 1,000 mg BID ORAL 11/14/19 18:00 12/14/19 17:59 11/15/19 09:03 Pantoprazole (Protonix) 40 mg EVERY 12 HOURS ORAL 11/13/19 21:00 12/13/19 20:59 11/15/19 09:03 Warfarin Sodium (Coumadin per pharmacy) 1 ea DAILY PRN MISC Per rx protocol 11/11/19 12:30 12/11/19 12:29 Warfarin Sodium (Warfarin Sod) 2 mg COUMADIN ORAL 11/15/19 17:00 11/20/19 16:59 Assessment/Plan Assessment/Plan IMPRESSION: 1. Pulmonary edema. 2. Pacemaker. 3. History of cardiac surgery. 4. Gout. 5. Hypertension. 6. Coagulopathy. DISCUSSION: Continue home medications. Diuresis as needed Saturating well on RA I will follow carefully. Radha Hi Omar Syed MD November 15, 2019 10:13
--- NOTE | 2019-11-15 10:26 | Hematology/Onc Progress Note ---
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 Fairchild # BARNEY --> cr 0.9-->1.8 --> may be due to diuretics # Hyperproteinemia --> with elev protien 8 --> spep shows no oligoclonal bands # CHF (congestive heart failure) --> diuresis as per cards # Suspected COVID-19 virus infection --> iso precautions --> per id # HTn --as per cards, atenolol --> recs noted # Status post pacemaker placement. # Status post aortic and mitral valve bioprosthesis. # Htn The timing of this note does not necessarily reflect the time of the patient was seen. Greatly appreciate consultation. Subjective HEENT: Denies: no symptoms, eye pain, blurred vision, tearing, double vision, ear pain, ear discharge, nose pain, nose congestion, throat pain, throat swelling, mouth pain, mouth swelling, other Cardiovascular: Denies: no symptoms, chest pain, edema, irregular heart rate, lightheadedness, palpitations, syncope, other Respiratory: Denies: no symptoms, cough, shortness of breath, SOB with excertion, SOB at rest, sputum, wheezing, other Genitourinary: Denies: no symptoms, burning, discharge, frequency, flank pain, hematuria, incontinence, pain, urgency, other Neurologic/Psychiatric: Denies: no symptoms, anxiety, depressed, emotional problems, headache, numbness, paresthesia, pre-existing deficit, seizure, tingling, tremors, weakness, other Endocrine: Denies: no symptoms, excessive sweating, flushing, intolerance to cold, intolerance to heat, increased hunger, increased thirst, increased urine, unexplained weight gain, unexplained weight loss, other Hematologic/Lymphatic: Denies: no symptoms, anemia, easy bleeding, easy bruising, adenopathy, other Allergies: Coded Allergies: PENICILLIN (Unverified Allergy, Unknown, 07/02/15) Subjective 11/12 awake and alert, inr 3.5, no events 11/13 labs reviewed, coagulopathy improved, room air 11/14 no events, awake, alert, labs noted, cr is better Objective Objective Current Medications Medications (Trade) Dose Ordered Sig/Kody Route PRN Reason Start Time Stop Time Status Last Admin Dose Admin Allopurinol (allopurinoL) 300 mg DAILY ORAL 11/15/19 09:00 12/15/19 08:59 11/15/19 09:03 Aspirin (Ecotrin) 81 mg DAILY ORAL 11/11/19 13:30 12/26/19 13:29 11/15/19 09:03 Atenolol (Tenormin) 25 mg DAILY ORAL 11/12/19 09:00 12/12/19 08:59 11/15/19 09:03 Atorvastatin Calcium (Lipitor) 80 mg BEDTIME ORAL 11/11/19 21:00 02/09/20 20:59 11/14/19 20:22 Digoxin (Lanoxin) 0.125 mg DAILY ORAL 11/11/19 14:30 02/09/20 14:29 11/15/19 09:03 Docusate Sodium (Colace) 100 mg THREE TIMES A DAY ORAL 11/13/19 18:00 12/13/19 17:59 11/15/19 09:03 Fish Oil (Fish Oil) 1,000 mg BID ORAL 11/14/19 18:00 12/14/19 17:59 11/15/19 09:03 Pantoprazole (Protonix) 40 mg EVERY 12 HOURS ORAL 11/13/19 21:00 12/13/19 20:59 11/15/19 09:03 Warfarin Sodium (Coumadin per pharmacy) 1 ea DAILY PRN MISC Per rx protocol 11/11/19 12:30 12/11/19 12:29 Warfarin Sodium (Warfarin Sod) 2 mg COUMADIN ORAL 11/15/19 17:00 11/20/19 16:59 Last 24 Hour Vital Signs Date Time Temp Pulse Resp B/P (MAP) Pulse Ox O2 Delivery O2 Flow Rate FiO2 11/15/19 09:03 74 11/15/19 09:03 67 113/44 11/15/19 08:00 97.7 67 18 113/44 (67) 97 11/15/19 04:00 60 11/15/19 04:00 97.7 60 18 146/58 (87) 99 11/15/19 00:00 61 11/15/19 00:00 96.5 78 18 145/57 (86) 98 11/14/19 21:00 Room Air 11/14/19 20:00 97.8 60 17 149/61 (90) 97 11/14/19 20:00 60 11/14/19 16:00 60 11/14/19 15:52 98.1 98 17 140/61 (87) 98 11/14/19 12:04 97.9 82 16 128/59 (82) 98 11/14/19 12:00 60 11/14/19 09:00 Room Air 11/14/19 08:44 60 11/14/19 08:44 60 145/59 11/14/19 08:00 97.9 60 16 145/59 (87) 97 11/14/19 08:00 61 11/14/19 04:00 97.9 60 18 128/56 (80) 97 11/14/19 04:00 60 11/14/19 00:00 98.9 99 20 137/76 (96) 95 11/14/19 00:00 60 11/14/19 00:00 98.2 61 18 132/59 (83) 98 11/13/19 21:16 Room Air 11/13/19 20:00 97.7 60 18 139/59 (85) 95 11/13/19 20:00 60 11/13/19 16:00 98.1 70 18 103/67 (79) 96 11/13/19 16:00 60 11/13/19 12:00 60 11/13/19 12:00 Room Air 11/13/19 12:00 97.7 59 19 103/61 (75) 97 11/13/19 10:32 64 125/43 11/13/19 10:31 64 Intake and Output 11/14/19 11/15/19 19:00 07:00 Intake Total 850 ml 60 ml Balance 850 ml 60 ml Intake Oral 850 ml 60 ml # Voids 7 2 Labs Test 11/13/19 04:05 11/14/19 07:10 11/15/19 04:15 Prothrombin Time 35.3 SEC (9.30-11.50) 34.6 SEC (9.30-11.50) 34.5 SEC (9.30-11.50) Prothromb Time International Ratio 3.5 (0.9-1.1) 3.5 (0.9-1.1) 3.4 (0.9-1.1) White Blood Count 11.3 K/UL (4.8-10.8) Red Blood Count 4.11 M/UL (4.20-5.40) Hemoglobin 12.3 G/DL (12.0-16.0) Hematocrit 33.7 % (37.0-47.0) Mean Corpuscular Volume 82 FL (80-99) Mean Corpuscular Hemoglobin 29.8 PG (27.0-31.0) Mean Corpuscular Hemoglobin Concent 36.3 G/DL (32.0-36.0) Red Cell Distribution Width 12.0 % (11.6-14.8) Platelet Count 249 K/UL (150-450) Mean Platelet Volume 6.1 FL (6.5-10.1) Neutrophils (%) (Auto) 48.2 % (45.0-75.0) Lymphocytes (%) (Auto) 29.7 % (20.0-45.0) Monocytes (%) (Auto) 7.2 % (1.0-10.0) Eosinophils (%) (Auto) 14.2 % (0.0-3.0) Basophils (%) (Auto) 0.7 % (0.0-2.0) Sodium Level 139 MMOL/L (136-145) Potassium Level 4.7 MMOL/L (3.5-5.1) Chloride Level 103 MMOL/L (98-107) Carbon Dioxide Level 26 MMOL/L (21-32) Anion Gap 10 mmol/L (5-15) Blood Urea Nitrogen 35 mg/dL (7-18) Creatinine 1.0 MG/DL (0.55-1.30) Estimat Glomerular Filtration Rate 55.7 mL/min (>60) Glucose Level 115 MG/DL (74-106) Hemoglobin A1c 6.2 % (4.3-6.0) Uric Acid 10.6 MG/DL (2.6-7.2) Calcium Level 8.4 MG/DL (8.5-10.1) Phosphorus Level 2.6 MG/DL (2.5-4.9) Magnesium Level 2.5 MG/DL (1.8-2.4) Ferritin 229 NG/ML (8-388) Total Bilirubin 1.2 MG/DL (0.2-1.0) Direct Bilirubin 0.2 MG/DL (0.0-0.3) Gamma Glutamyl Transpeptidase 64 U/L (5-85) Aspartate Amino Transf (AST/SGOT) 31 U/L (15-37) Alanine Aminotransferase (ALT/SGPT) 28 U/L (12-78) Alkaline Phosphatase 116 U/L (46-116) Total Creatine Kinase 94 U/L (26-308) Troponin I 0.000 ng/mL (0.000-0.056) C-Reactive Protein, Quantitative 1.0 mg/dL (0.00-0.90) Pro-B-Type Natriuretic Peptide 135 pg/mL (0-125) Total Protein 8.4 G/DL (6.4-8.2) Albumin 4.2 G/DL (3.4-5.0) Globulin 4.2 g/dL Albumin/Globulin Ratio 1.0 (1.0-2.7) Triglycerides Level 188 MG/DL (30-150) Cholesterol Level 99 MG/DL (< 200) LDL Cholesterol 47 mg/dL (<100) HDL Cholesterol 28 MG/DL (40-60) Cholesterol/HDL Ratio 3.5 (3.3-4.4) Vitamin B12 Level 383 PG/ML (193-986) Folate 18.8 NG/ML (8.6-58.9) Thyroid Stimulating Hormone (TSH) 2.376 uiU/mL (0.358-3.740) Cortisol AM Sample 13.5 UG/DL Height (Feet): 5 Height (Inches): 2.00 Weight (Pounds): 136 Objective Physical Exam: Vitals: reviewed General: NAD HEENT: nc, at Neck: supple Chest: crackles noted bilaterally+++ Cardiovascular: RRR, no s3, s4 Abdomen: soft, nontender, nd Extremities: no cce, normal range of motion Neuro: alert and oriented Mahesh Call MD November 15, 2019 10:26
[2019-11-15 12:00] VITALS: BP 143/50
--- NOTE | 2019-11-15 12:28 | Infectious Diseases Prog Note ---
Assessment/Plan Assessment/Plan IMPRESSION: MIld COVID-19 disease Mild pulmonary hypertension Hypertension, Gout, valvular heart disease, status post mitral & aortic bioprosthetic valve placement, Atrial fibrillation, Acute renal failure improving RECOMMENDATION: Observe off antibiotic. Can be discharged to home with home isolation Subjective ROS Limited/Unobtainable: No Constitutional: Reports: no symptoms Respiratory: Reports: no symptoms Cardiovascular: Reports: no symptoms Gastrointestinal/Abdominal: Reports: no symptoms Genitourinary: Reports: no symptoms Allergies: Coded Allergies: PENICILLIN (Unverified Allergy, Unknown, 07/02/15) Objective Vital Signs Last 24 Hour Vital Signs Date Time Temp Pulse Resp B/P (MAP) Pulse Ox O2 Delivery O2 Flow Rate FiO2 11/15/19 09:03 74 11/15/19 09:03 67 113/44 11/15/19 09:00 Room Air 11/15/19 08:00 60 11/15/19 08:00 97.7 67 18 113/44 (67) 97 11/15/19 04:00 60 11/15/19 04:00 97.7 60 18 146/58 (87) 99 11/15/19 00:00 61 11/15/19 00:00 96.5 78 18 145/57 (86) 98 11/14/19 21:00 Room Air 11/14/19 20:00 97.8 60 17 149/61 (90) 97 11/14/19 20:00 60 11/14/19 16:00 60 11/14/19 15:52 98.1 98 17 140/61 (87) 98 Height (Feet): 5 Height (Inches): 2.00 Weight (Pounds): 136 General Appearance: no acute distress HEENT: mucous membranes moist Respiratory/Chest: no respiratory distress Cardiovascular: normal rate, pacemaker/AICD Abdomen: soft, non tender Extremities: no edema Neurologic/Psychiatric: alert, oriented x 3, responsive Laboratory Tests Test 11/15/19 04:15 Prothrombin Time 34.5 SEC (9.30-11.50) H Prothromb Time International Ratio 3.4 (0.9-1.1) H Current Medications Medications (Trade) Dose Ordered Sig/Kody Route PRN Reason Start Time Stop Time Status Last Admin Dose Admin Allopurinol (allopurinoL) 300 mg DAILY ORAL 11/15/19 09:00 12/15/19 08:59 11/15/19 09:03 Aspirin (Ecotrin) 81 mg DAILY ORAL 11/11/19 13:30 12/26/19 13:29 11/15/19 09:03 Atenolol (Tenormin) 25 mg DAILY ORAL 11/12/19 09:00 12/12/19 08:59 11/15/19 09:03 Atorvastatin Calcium (Lipitor) 80 mg BEDTIME ORAL 11/11/19 21:00 02/09/20 20:59 11/14/19 20:22 Digoxin (Lanoxin) 0.125 mg DAILY ORAL 11/11/19 14:30 02/09/20 14:29 11/15/19 09:03 Docusate Sodium (Colace) 100 mg THREE TIMES A DAY ORAL 11/13/19 18:00 12/13/19 17:59 11/15/19 09:03 Fish Oil (Fish Oil) 1,000 mg BID ORAL 11/14/19 18:00 12/14/19 17:59 11/15/19 09:03 Pantoprazole (Protonix) 40 mg EVERY 12 HOURS ORAL 11/13/19 21:00 12/13/19 20:59 11/15/19 09:03 Warfarin Sodium (Coumadin per pharmacy) 1 ea DAILY PRN MISC Per rx protocol 11/11/19 12:30 12/11/19 12:29 Warfarin Sodium (Warfarin Sod) 2 mg COUMADIN ORAL 11/15/19 17:00 11/20/19 16:59 Álvaro Mix MD November 15, 2019 12:28
--- NOTE | 2019-11-15 12:50 | Nephrology Progress Note ---
Assessment/Plan Problem List: (1) BARNEY (acute kidney injury) (2) Atrial fibrillation (3) Pacemaker (4) Hypotension Assessment: Episodic Assessment Acute renal failure multifactorial -Most likely due to combination of diuretics and ALPESH inhibitors -Episodic hypotension Other conditions: Atrial fibrillation Elevated hemoglobin A1c to 6.2 Status post pacemaker August 2018 Longer run of ventricular tachycardia 24 beats Echocardiogram suggests ejection fraction of 60% Status post aortic and mitral valve bioprosthesis Plan Off Lotensin and Lasix Check renal parameters tomorrow Avoid nephrotoxic's Keep the blood pressure above 100 systolic Monitor INR since the patient is on Coumadin Protonix and Colace p.o. Allopurinol for high uric acid Fish oil for high triglycerides Subjective ROS Limited/Unobtainable: No Constitutional: Reports: other - Feels better Objective Objective Last 24 Hour Vital Signs Date Time Temp Pulse Resp B/P (MAP) Pulse Ox O2 Delivery O2 Flow Rate FiO2 11/15/19 12:00 60 11/15/19 12:00 97.5 86 18 143/50 (81) 96 11/15/19 09:03 74 11/15/19 09:03 67 113/44 11/15/19 09:00 Room Air 11/15/19 08:00 60 11/15/19 08:00 97.7 67 18 113/44 (67) 97 11/15/19 04:00 60 11/15/19 04:00 97.7 60 18 146/58 (87) 99 11/15/19 00:00 61 11/15/19 00:00 96.5 78 18 145/57 (86) 98 11/14/19 21:00 Room Air 11/14/19 20:00 97.8 60 17 149/61 (90) 97 11/14/19 20:00 60 11/14/19 16:00 60 11/14/19 15:52 98.1 98 17 140/61 (87) 98 Intake and Output 11/14/19 11/15/19 19:00 07:00 Intake Total 850 ml 60 ml Balance 850 ml 60 ml Intake Oral 850 ml 60 ml # Voids 7 2 Laboratory Tests 11/15/19 04:15: Prothrombin Time 34.5H, Prothromb Time International Ratio 3.4H Height (Feet): 5 Height (Inches): 2.00 Weight (Pounds): 136 General Appearance: no apparent distress Cardiovascular: normal rate Respiratory/Chest: lungs clear Abdomen: soft Objective No change Riaz Tolbert MD November 15, 2019 12:49
--- NOTE | 2019-11-15 15:27 | General Progress Note ---
Assessment/Plan Problem List: (1) Atrial fibrillation ICD Codes: I48.91 - Unspecified atrial fibrillation SNOMED: 94255760 (2) COVID-19 ruled out ICD Codes: Z03.818 - Encounter for observation for suspected exposure to other biological agents ruled out SNOMED: 416960300, 191089074 (3) Upper respiratory infection ICD Codes: J06.9 - Acute upper respiratory infection, unspecified SNOMED: 18747179 (4) Suspected COVID-19 virus infection ICD Codes: Z20.828 - Contact with and (suspected) exposure to other viral communicable diseases SNOMED: 115408968 (5) CHF (congestive heart failure) ICD Codes: I50.9 - Heart failure, unspecified SNOMED: 32552771 Status: progressing Assessment/Plan: arrythmia no bleeding reviewed labs coagulapathy improved coumadin per heme/onc cardiac cath [place] [facility] s/p runs of [place] covid r/o azotemia repeat bmp mild leukocytosis Subjective ROS Limited/Unobtainable: Yes Allergies: Coded Allergies: PENICILLIN (Unverified Allergy, Unknown, 07/02/15) Objective Last 24 Hour Vital Signs Date Time Temp Pulse Resp B/P (MAP) Pulse Ox O2 Delivery O2 Flow Rate FiO2 11/15/19 12:00 60 11/15/19 12:00 97.5 86 18 143/50 (81) 96 11/15/19 09:03 74 11/15/19 09:03 67 113/44 11/15/19 09:00 Room Air 11/15/19 08:00 60 11/15/19 08:00 97.7 67 18 113/44 (67) 97 11/15/19 04:00 60 11/15/19 04:00 97.7 60 18 146/58 (87) 99 11/15/19 00:00 61 11/15/19 00:00 96.5 78 18 145/57 (86) 98 11/14/19 21:00 Room Air 11/14/19 20:00 97.8 60 17 149/61 (90) 97 11/14/19 20:00 60 11/14/19 16:00 60 11/14/19 15:52 98.1 98 17 140/61 (87) 98 Intake and Output 11/14/19 11/15/19 19:00 07:00 Intake Total 850 ml 60 ml Balance 850 ml 60 ml Intake Oral 850 ml 60 ml # Voids 7 2 Laboratory Tests 11/15/19 04:15: Prothrombin Time 34.5H, Prothromb Time International Ratio 3.4H Height (Feet): 5 Height (Inches): 2.00 Weight (Pounds): 136 Giuliano Krueger MD November 15, 2019 15:27
[2019-11-15 16:00] VITALS: BP 137/75
--- NOTE | 2019-11-15 16:30 | Cardiac Electrophysiology PN ---
Assessment/Plan Assessment/Plan 1. Atrial fibrillation. Continue Dig and atenolol 25 daily. The INR is therapeutic. On Coumadin per pharmacy. Pacer check showed 26% atrial fib. 2. Long run of 24 beats of V tach. No [place].Cardiac cath after Covid negative On Atenolol 25 daily 3. Congestive heart failure, EF of around 60%. 4. Status post [facility] Gene pacemaker placement 08/2018 . Interrogated and showed Nl fx 5. Status post aortic and mitral valve bioprosthesis. 6. Hypotension, resolved after DC other BP meds except atenolol 7. ARF Cr increased to 1.[address] Tolbert Subjective Subjective Had 24 beats of VT. Pacer interrogation showed frequent atrial fib Objective Last 24 Hour Vital Signs Date Time Temp Pulse Resp B/P (MAP) Pulse Ox O2 Delivery O2 Flow Rate FiO2 11/15/19 12:00 60 11/15/19 12:00 97.5 86 18 143/50 (81) 96 11/15/19 09:03 74 11/15/19 09:03 67 113/44 11/15/19 09:00 Room Air 11/15/19 08:00 60 11/15/19 08:00 97.7 67 18 113/44 (67) 97 11/15/19 04:00 60 11/15/19 04:00 97.7 60 18 146/58 (87) 99 11/15/19 00:00 61 11/15/19 00:00 96.5 78 18 145/57 (86) 98 11/14/19 21:00 Room Air 11/14/19 20:00 97.8 60 17 149/61 (90) 97 11/14/19 20:00 60 Intake and Output 11/14/19 11/15/19 19:00 07:00 Intake Total 850 ml 60 ml Balance 850 ml 60 ml Intake Oral 850 ml 60 ml # Voids 7 2 Laboratory Tests Test 11/15/19 04:15 Prothrombin Time 34.5 SEC (9.30-11.50) H Prothromb Time International Ratio 3.4 (0.9-1.1) H Objective HEAD AND NECK: Shows mild JVD. LUNGS: Clear. CARDIOVASCULAR: Regular S1 and S2 with no gallop. Sternotomy scar is intact. The pacemaker in the left subclavian. ABDOMEN: Soft. EXTREMITIES: No pitting edema. Pb Fairchild MD November 15, 2019 16:30
[2019-11-15] MEDS: Warfarin Sodium 1mg ORAL SCH (18:03)
[2019-11-15 20:00] VITALS: BP 154/44
[2019-11-15] MEDS: Atorvastatin 80mg tab ORAL SCH (20:20)
[2019-11-16] VITALS: BP 145/72
[2019-11-16] MEDS ORDERED: cloNIDine 0.2mg Tab ORAL PRN
[2019-11-16 04:00] VITALS: BP 133/77
[2019-11-16 04:42] LABS: BASOPHILS % (AUTO) 0.8 % (0.0-2.0); EOSINOPHILS % (AUTO) 17.5 % (0.0-3.0); HEMATOCRIT 31.2 % (37.0-47.0); HEMOGLOBIN 11.4 G/DL (12.0-16.0); LYMPHOCYTES % (AUTO) 29.8 % (20.0-45.0); MEAN CORPUSCULAR VOLUME 82 FL (80-99); MONOCYTES % (AUTO) 7.3 % (1.0-10.0); NEUTROPHILS % (AUTO) 44.5 % (45.0-75.0); PLATELET COUNT 246 K/UL (150-450); RED BLOOD COUNT 3.82 M/UL (4.20-5.40); WHITE BLOOD COUNT 14.3 K/UL (4.8-10.8)
[2019-11-16 04:48] LABS: INR 2.8 (0.9-1.1)
[2019-11-16 04:55] LABS: ALANINE AMINOTRANSFERASE 25 U/L (12-78); ALBUMIN 3.9 G/DL (3.4-5.0); ALKALINE PHOSPHATASE 108 U/L (46-116); ANION GAP 8 mmol/L (5-15); ASPARTATE AMINO TRANSFERASE 26 U/L (15-37); BLOOD UREA NITROGEN 17 mg/dL (7-18); CALCIUM 8.3 MG/DL (8.5-10.1); CARBON DIOXIDE 26 MMOL/L (21-32); CHLORIDE 105 MMOL/L (98-107); CREATININE 1.1 MG/DL (0.55-1.30); PHOSPHORUS 2.7 MG/DL (2.5-4.9); POTASSIUM 4.5 MMOL/L (3.5-5.1); SODIUM 139 MMOL/L (136-145)
[2019-11-16 08:00] VITALS: BP 143/52
[2019-11-16] MEDS: Aspirin EC 81mg tab ORAL SCH (09:27)
[2019-11-16] MEDS: Digoxin 0.125mg tab ORAL SCH (09:27)
[2019-11-16] MEDS: Docusate 100mg cap ORAL SCH ×3 (09:27→17:31)
[2019-11-16] MEDS: Atenolol 25mg tab ORAL SCH (09:28)
--- NOTE | 2019-11-16 09:43 | Hematology/Onc Progress Note ---
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 Fairchild # Anemia of chronic disease --> hgb 13-->12-->11 --> smear is noted --> no hemolysis is noted # BARNEY --> cr 0.9-->1.8->1.1 --> may be due to diuretics # Hyperproteinemia --> with elev protien 8 --> spep shows no oligoclonal bands # CHF (congestive heart failure) --> diuresis as per cards # Suspected COVID-19 virus infection --> iso precautions --> per id # HTn --as per cards, atenolol --> recs noted # Status post pacemaker placement. # Status post aortic and mitral valve bioprosthesis. # Htn # Dvt ppx coumadin The timing of this note does not necessarily reflect the time of the patient was seen. Greatly appreciate consultation. Subjective Constitutional: Denies: no symptoms, chills, fever, malaise, weakness, other HEENT: Denies: no symptoms, eye pain, blurred vision, tearing, double vision, ear pain, ear discharge, nose pain, nose congestion, throat pain, throat swelling, mouth pain, mouth swelling, other Cardiovascular: Denies: no symptoms, chest pain, edema, irregular heart rate, lightheadedness, palpitations, syncope, other Gastrointestinal/Abdominal: Denies: no symptoms, abdomen distended, abdominal pain, black stools, tarry stools, blood in stool, constipated, diarrhea, difficulty swallowing, nausea, poor appetite, poor fluid intake, rectal bleeding , vomiting, other Genitourinary: Denies: no symptoms, burning, discharge, frequency, flank pain, hematuria, incontinence, pain, urgency, other Neurologic/Psychiatric: Denies: no symptoms, anxiety, depressed, emotional problems, headache, numbness, paresthesia, pre-existing deficit, seizure, tingling, tremors, weakness, other Endocrine: Denies: no symptoms, excessive sweating, flushing, intolerance to cold, intolerance to heat, increased hunger, increased thirst, increased urine, unexplained weight gain, unexplained weight loss, other Allergies: Coded Allergies: PENICILLIN (Unverified Allergy, Unknown, 07/02/15) Subjective 11/12 awake and alert, inr 3.5, no events 11/13 labs reviewed, coagulopathy improved, room air 11/14 no events, awake, alert, labs noted, cr is better 11/15 labs are noted, on coumadin, adjust to inr, no bleeding Objective Objective Current Medications Medications (Trade) Dose Ordered Sig/Kody Route PRN Reason Start Time Stop Time Status Last Admin Dose Admin Allopurinol (allopurinoL) 300 mg DAILY ORAL 11/15/19 09:00 12/15/19 08:59 11/16/19 09:28 Aspirin (Ecotrin) 81 mg DAILY ORAL 11/11/19 13:30 12/26/19 13:29 11/16/19 09:27 Atenolol (Tenormin) 25 mg DAILY ORAL 11/12/19 09:00 12/12/19 08:59 11/16/19 09:28 Atorvastatin Calcium (Lipitor) 80 mg BEDTIME ORAL 11/11/19 21:00 02/09/20 20:59 11/15/19 20:20 Clonidine HCl (Catapres tab) 0.2 mg Q2H PRN ORAL For High Blood Pressure 11/16/19 00:00 02/14/20 00:00 Digoxin (Lanoxin) 0.125 mg DAILY ORAL 11/11/19 14:30 02/09/20 14:29 11/16/19 09:27 Docusate Sodium (Colace) 100 mg THREE TIMES A DAY ORAL 11/13/19 18:00 12/13/19 17:59 11/16/19 09:27 Fish Oil (Fish Oil) 1,000 mg BID ORAL 11/14/19 18:00 12/14/19 17:59 11/16/19 09:27 Pantoprazole (Protonix) 40 mg EVERY 12 HOURS ORAL 11/13/19 21:00 12/13/19 20:59 11/16/19 09:27 Warfarin Sodium (Coumadin per pharmacy) 1 ea DAILY PRN MISC Per rx protocol 11/11/19 12:30 12/11/19 12:29 Warfarin Sodium (Warfarin Sod) 2 mg COUMADIN ORAL 11/15/19 17:00 5/29/20 16:59 11/15/19 18:03 Last 24 Hour Vital Signs Date Time Temp Pulse Resp B/P (MAP) Pulse Ox O2 Delivery O2 Flow Rate FiO2 11/16/19 09:28 60 143/52 11/16/19 09:27 72 11/16/19 09:00 Room Air 11/16/19 08:00 97.5 60 18 143/52 (82) 98 11/16/19 04:00 60 11/16/19 04:00 97.9 60 20 133/77 (95) 98 11/16/19 00:00 60 11/16/19 00:00 97.7 68 20 145/72 (96) 98 11/15/19 21:00 Room Air 11/15/19 20:00 60 11/15/19 20:00 97.9 60 18 154/44 (80) 98 11/15/19 16:00 73 11/15/19 16:00 97.9 96 18 137/75 (95) 99 11/15/19 12:00 60 11/15/19 12:00 97.5 86 18 143/50 (81) 96 11/15/19 09:03 74 11/15/19 09:03 67 113/44 11/15/19 09:00 Room Air 11/15/19 08:00 60 11/15/19 08:00 97.7 67 18 113/44 (67) 97 11/15/19 04:00 60 11/15/19 04:00 97.7 60 18 146/58 (87) 99 11/15/19 00:00 61 11/15/19 00:00 96.5 78 18 145/57 (86) 98 11/14/19 21:00 Room Air 11/14/19 20:00 97.8 60 17 149/61 (90) 97 11/14/19 20:00 60 11/14/19 16:00 60 11/14/19 15:52 98.1 98 17 140/61 (87) 98 11/14/19 12:04 97.9 82 16 128/59 (82) 98 11/14/19 12:00 60 Intake and Output 11/15/19 11/16/19 19:00 07:00 Intake Total 740 ml 60 ml Balance 740 ml 60 ml Intake Oral 740 ml 60 ml # Voids 3 2 # Bowel Movements 1 Labs Test 11/14/19 07:10 11/15/19 04:15 11/16/19 04:00 White Blood Count 11.3 K/UL (4.8-10.8) 14.3 K/UL (4.8-10.8) Red Blood Count 4.11 M/UL (4.20-5.40) 3.82 M/UL (4.20-5.40) Hemoglobin 12.3 G/DL (12.0-16.0) 11.4 G/DL (12.0-16.0) Hematocrit 33.7 % (37.0-47.0) 31.2 % (37.0-47.0) Mean Corpuscular Volume 82 FL (80-99) 82 FL (80-99) Mean Corpuscular Hemoglobin 29.8 PG (27.0-31.0) 29.8 PG (27.0-31.0) Mean Corpuscular Hemoglobin Concent 36.3 G/DL (32.0-36.0) 36.6 G/DL (32.0-36.0) Red Cell Distribution Width 12.0 % (11.6-14.8) 12.0 % (11.6-14.8) Platelet Count 249 K/UL (150-450) 246 K/UL (150-450) Mean Platelet Volume 6.1 FL (6.5-10.1) 6.0 FL (6.5-10.1) Neutrophils (%) (Auto) 48.2 % (45.0-75.0) 44.5 % (45.0-75.0) Lymphocytes (%) (Auto) 29.7 % (20.0-45.0) 29.8 % (20.0-45.0) Monocytes (%) (Auto) 7.2 % (1.0-10.0) 7.3 % (1.0-10.0) Eosinophils (%) (Auto) 14.2 % (0.0-3.0) 17.5 % (0.0-3.0) Basophils (%) (Auto) 0.7 % (0.0-2.0) 0.8 % (0.0-2.0) Prothrombin Time 34.6 SEC (9.30-11.50) 34.5 SEC (9.30-11.50) 28.6 SEC (9.30-11.50) Prothromb Time International Ratio 3.5 (0.9-1.1) 3.4 (0.9-1.1) 2.8 (0.9-1.1) Sodium Level 139 MMOL/L (136-145) 139 MMOL/L (136-145) Potassium Level 4.7 MMOL/L (3.5-5.1) 4.5 MMOL/L (3.5-5.1) Chloride Level 103 MMOL/L (98-107) 105 MMOL/L (98-107) Carbon Dioxide Level 26 MMOL/L (21-32) 26 MMOL/L (21-32) Anion Gap 10 mmol/L (5-15) 8 mmol/L (5-15) Blood Urea Nitrogen 35 mg/dL (7-18) 17 mg/dL (7-18) Creatinine 1.0 MG/DL (0.55-1.30) 1.1 MG/DL (0.55-1.30) Estimat Glomerular Filtration Rate 55.7 mL/min (>60) 49.9 mL/min (>60) Glucose Level 115 MG/DL (74-106) 118 MG/DL (74-106) Hemoglobin A1c 6.2 % (4.3-6.0) Uric Acid 10.6 MG/DL (2.6-7.2) 5.5 MG/DL (2.6-7.2) Calcium Level 8.4 MG/DL (8.5-10.1) 8.3 MG/DL (8.5-10.1) Phosphorus Level 2.6 MG/DL (2.5-4.9) 2.7 MG/DL (2.5-4.9) Magnesium Level 2.5 MG/DL (1.8-2.4) 2.2 MG/DL (1.8-2.4) Ferritin 229 NG/ML (8-388) Total Bilirubin 1.2 MG/DL (0.2-1.0) 1.0 MG/DL (0.2-1.0) Direct Bilirubin 0.2 MG/DL (0.0-0.3) Gamma Glutamyl Transpeptidase 64 U/L (5-85) Aspartate Amino Transf (AST/SGOT) 31 U/L (15-37) 26 U/L (15-37) Alanine Aminotransferase (ALT/SGPT) 28 U/L (12-78) 25 U/L (12-78) Alkaline Phosphatase 116 U/L (46-116) 108 U/L (46-116) Total Creatine Kinase 94 U/L (26-308) Troponin I 0.000 ng/mL (0.000-0.056) C-Reactive Protein, Quantitative 1.0 mg/dL (0.00-0.90) Pro-B-Type Natriuretic Peptide 135 pg/mL (0-125) Total Protein 8.4 G/DL (6.4-8.2) 7.9 G/DL (6.4-8.2) Albumin 4.2 G/DL (3.4-5.0) 3.9 G/DL (3.4-5.0) Globulin 4.2 g/dL 4.0 g/dL Albumin/Globulin Ratio 1.0 (1.0-2.7) 1.0 (1.0-2.7) Triglycerides Level 188 MG/DL (30-150) Cholesterol Level 99 MG/DL (< 200) LDL Cholesterol 47 mg/dL (<100) HDL Cholesterol 28 MG/DL (40-60) Cholesterol/HDL Ratio 3.5 (3.3-4.4) Vitamin B12 Level 383 PG/ML (193-986) Folate 18.8 NG/ML (8.6-58.9) Thyroid Stimulating Hormone (TSH) 2.376 uiU/mL (0.358-3.740) Cortisol AM Sample 13.5 UG/DL Digoxin Level 0.8 NG/ML (0.9-2.0) Height (Feet): 5 Height (Inches): 2.00 Weight (Pounds): 136 Objective Physical Exam: Vitals: reviewed General: NAD HEENT: nc, at Neck: supple Chest: crackles noted bilaterally+++ Cardiovascular: RRR, no s3, s4 Abdomen: soft, nontender, nd Extremities: no cce, normal range of motion Neuro: alert and oriented Mahesh Call MD November 16, 2019 09:43
--- NOTE | 2019-11-16 10:18 | Pulmonology Progress Note ---
Subjective ROS Limited/Unobtainable: Yes Interval Events: None new Constitutional: Reports: no symptoms HEENT: Repors: no symptoms Respiratory: Reports: no symptoms Cardiovascular: Reports: no symptoms Gastrointestinal/Abdominal: Reports: no symptoms Musculoskeletal: Reports: other - mild shoulder pain Allergies: Coded Allergies: PENICILLIN (Unverified Allergy, Unknown, 07/02/15) Objective Last 24 Hour Vital Signs Date Time Temp Pulse Resp B/P (MAP) Pulse Ox O2 Delivery O2 Flow Rate FiO2 11/16/19 09:28 60 143/52 11/16/19 09:27 72 11/16/19 09:00 Room Air 11/16/19 08:00 97.5 60 18 143/52 (82) 98 11/16/19 04:00 60 11/16/19 04:00 97.9 60 20 133/77 (95) 98 11/16/19 00:00 60 11/16/19 00:00 97.7 68 20 145/72 (96) 98 11/15/19 21:00 Room Air 11/15/19 20:00 60 11/15/19 20:00 97.9 60 18 154/44 (80) 98 11/15/19 16:00 73 11/15/19 16:00 97.9 96 18 137/75 (95) 99 11/15/19 12:00 60 11/15/19 12:00 97.5 86 18 143/50 (81) 96 Intake and Output 11/15/19 11/16/19 19:00 07:00 Intake Total 740 ml 60 ml Balance 740 ml 60 ml Intake Oral 740 ml 60 ml # Voids 3 2 # Bowel Movements 1 General Appearance: no acute distress HEENT: normocephalic Respiratory: chest wall non-tender, lungs clear Cardiovascular: normal peripheral pulses Abdomen: normal bowel sounds Laboratory Tests 11/16/19 04:00: White Blood Count 14.3H, Red Blood Count 3.82L, Hemoglobin 11.4L, Hematocrit 31.2L, Mean Corpuscular Volume 82, Mean Corpuscular Hemoglobin 29.8, Mean Corpuscular Hemoglobin Concent 36.6H, Red Cell Distribution Width 12.0, Platelet Count 246, Mean Platelet Volume 6.0L, Neutrophils (%) (Auto) 44.5L, Lymphocytes (%) (Auto) 29.8, Monocytes (%) (Auto) 7.3, Eosinophils (%) (Auto) 17.5H, Basophils (%) (Auto) 0.8, Prothrombin Time 28.6H, Prothromb Time International Ratio 2.8H, Sodium Level 139, Potassium Level 4.5, Chloride Level 105, Carbon Dioxide Level 26, Anion Gap 8, Blood Urea Nitrogen 17, Creatinine 1.1, Estimat Glomerular Filtration Rate 49.9, Glucose Level 118H, Uric Acid 5.5 , Calcium Level 8.3L, Phosphorus Level 2.7, Magnesium Level 2.2, Total Bilirubin 1.0, Aspartate Amino Transf (AST/SGOT) 26, Alanine Aminotransferase ( ALT/SGPT) 25, Alkaline Phosphatase 108, Total Protein 7.9, Albumin 3.9, Globulin 4.0, Albumin/Globulin Ratio 1.0, Digoxin Level 0.8L Current Medications Medications (Trade) Dose Ordered Sig/Kody Route PRN Reason Start Time Stop Time Status Last Admin Dose Admin Allopurinol (allopurinoL) 300 mg DAILY ORAL 11/15/19 09:00 12/15/19 08:59 11/16/19 09:28 Aspirin (Ecotrin) 81 mg DAILY ORAL 11/11/19 13:30 12/26/19 13:29 11/16/19 09:27 Atenolol (Tenormin) 25 mg DAILY ORAL 11/12/19 09:00 12/12/19 08:59 11/16/19 09:28 Atorvastatin Calcium (Lipitor) 80 mg BEDTIME ORAL 11/11/19 21:00 02/09/20 20:59 11/15/19 20:20 Clonidine HCl (Catapres tab) 0.2 mg Q2H PRN ORAL For High Blood Pressure 11/16/19 00:00 02/14/20 00:00 Digoxin (Lanoxin) 0.125 mg DAILY ORAL 11/11/19 14:30 02/09/20 14:29 11/16/19 09:27 Docusate Sodium (Colace) 100 mg THREE TIMES A DAY ORAL 11/13/19 18:00 12/13/19 17:59 11/16/19 09:27 Fish Oil (Fish Oil) 1,000 mg BID ORAL 11/14/19 18:00 12/14/19 17:59 11/16/19 09:27 Pantoprazole (Protonix) 40 mg EVERY 12 HOURS ORAL 11/13/19 21:00 12/13/19 20:59 11/16/19 09:27 Warfarin Sodium (Coumadin per pharmacy) 1 ea DAILY PRN MISC Per rx protocol 11/11/19 12:30 12/11/19 12:29 Warfarin Sodium (Warfarin Sod) 2 mg COUMADIN ORAL 11/15/19 17:00 11/20/19 16:59 11/15/19 18:03 Assessment/Plan Assessment/Plan IMPRESSION: 1. Pulmonary edema. 2. Pacemaker. 3. History of cardiac surgery. 4. Gout. 5. Hypertension. 6. Coagulopathy. DISCUSSION: Continue home medications. Diuresis as needed Saturating well on RA I will follow carefully. Radha Hi Omar Syed MD November 16, 2019 10:18
--- NOTE | 2019-11-16 10:50 | Nephrology Progress Note ---
Assessment/Plan Problem List: (1) BARNEY (acute kidney injury) (2) Atrial fibrillation (3) Pacemaker (4) Hypotension Assessment: Episodic Assessment Acute renal failure multifactorial -Most likely due to combination of diuretics and ALPESH inhibitors -Episodic hypotension Other conditions: Atrial fibrillation Elevated hemoglobin A1c to 6.2 Status post pacemaker August 2018 Longer run of ventricular tachycardia 24 beats Echocardiogram suggests ejection fraction of 60% Status post aortic and mitral valve bioprosthesis Plan Today's labs reviewed Off Lotensin and Lasix Check renal parameters as needed Avoid nephrotoxic's Keep the blood pressure above 100 systolic Monitor INR since the patient is on Coumadin Protonix and Colace p.o. Allopurinol for high uric acid Fish oil for high triglycerides Subjective ROS Limited/Unobtainable: No Constitutional: Reports: malaise Objective Objective Last 24 Hour Vital Signs Date Time Temp Pulse Resp B/P (MAP) Pulse Ox O2 Delivery O2 Flow Rate FiO2 11/16/19 09:28 60 143/52 11/16/19 09:27 72 11/16/19 09:00 Room Air 11/16/19 08:00 60 11/16/19 08:00 97.5 60 18 143/52 (82) 98 11/16/19 04:00 60 11/16/19 04:00 97.9 60 20 133/77 (95) 98 11/16/19 00:00 60 11/16/19 00:00 97.7 68 20 145/72 (96) 98 11/15/19 21:00 Room Air 11/15/19 20:00 60 11/15/19 20:00 97.9 60 18 154/44 (80) 98 11/15/19 16:00 73 11/15/19 16:00 97.9 96 18 137/75 (95) 99 11/15/19 12:00 60 11/15/19 12:00 97.5 86 18 143/50 (81) 96 Intake and Output 11/15/19 11/16/19 19:00 07:00 Intake Total 740 ml 60 ml Balance 740 ml 60 ml Intake Oral 740 ml 60 ml # Voids 3 2 # Bowel Movements 1 Laboratory Tests 11/16/19 04:00: White Blood Count 14.3H, Red Blood Count 3.82L, Hemoglobin 11.4L, Hematocrit 31.2L, Mean Corpuscular Volume 82, Mean Corpuscular Hemoglobin 29.8, Mean Corpuscular Hemoglobin Concent 36.6H, Red Cell Distribution Width 12.0, Platelet Count 246, Mean Platelet Volume 6.0L, Neutrophils (%) (Auto) 44.5L, Lymphocytes (%) (Auto) 29.8, Monocytes (%) (Auto) 7.3, Eosinophils (%) (Auto) 17.5H, Basophils (%) (Auto) 0.8, Prothrombin Time 28.6H, Prothromb Time International Ratio 2.8H, Sodium Level 139, Potassium Level 4.5, Chloride Level 105, Carbon Dioxide Level 26, Anion Gap 8, Blood Urea Nitrogen 17, Creatinine 1.1, Estimat Glomerular Filtration Rate 49.9, Glucose Level 118H, Uric Acid 5.5 , Calcium Level 8.3L, Phosphorus Level 2.7, Magnesium Level 2.2, Total Bilirubin 1.0, Aspartate Amino Transf (AST/SGOT) 26, Alanine Aminotransferase ( ALT/SGPT) 25, Alkaline Phosphatase 108, Total Protein 7.9, Albumin 3.9, Globulin 4.0, Albumin/Globulin Ratio 1.0, Digoxin Level 0.8L Height (Feet): 5 Height (Inches): 2.00 Weight (Pounds): 136 General Appearance: no apparent distress Cardiovascular: normal rate Abdomen: soft Objective No change Riaz Tolbert MD November 16, 2019 10:50
[2019-11-16 12:00] VITALS: BP 102/57
[2019-11-16] MEDS: Vitamin D 1000 IU Tab ORAL SCH (12:14)
--- NOTE | 2019-11-16 12:42 | Infectious Diseases Prog Note ---
Assessment/Plan Assessment/Plan IMPRESSION: Mild COVID19 disease Leukocytosis Mild pulmonary hypertension Hypertension, Gout, valvular heart disease, status post mitral & aortic bioprosthetic valve placement, Atrial fibrillation, Acute renal failure improving RECOMMENDATION: Observe off antibiotic. Repeat CXR Subjective ROS Limited/Unobtainable: No Constitutional: Reports: no symptoms Respiratory: Reports: no symptoms Cardiovascular: Reports: no symptoms Gastrointestinal/Abdominal: Reports: no symptoms Genitourinary: Reports: no symptoms Allergies: Coded Allergies: PENICILLIN (Unverified Allergy, Unknown, 07/02/15) Objective Vital Signs Last 24 Hour Vital Signs Date Time Temp Pulse Resp B/P (MAP) Pulse Ox O2 Delivery O2 Flow Rate FiO2 11/16/19 09:28 60 143/52 11/16/19 09:27 72 11/16/19 09:00 Room Air 11/16/19 08:00 60 11/16/19 08:00 97.5 60 18 143/52 (82) 98 11/16/19 04:00 60 11/16/19 04:00 97.9 60 20 133/77 (95) 98 11/16/19 00:00 60 11/16/19 00:00 97.7 68 20 145/72 (96) 98 11/15/19 21:00 Room Air 11/15/19 20:00 60 11/15/19 20:00 97.9 60 18 154/44 (80) 98 11/15/19 16:00 73 11/15/19 16:00 97.9 96 18 137/75 (95) 99 Height (Feet): 5 Height (Inches): 2.00 Weight (Pounds): 136 General Appearance: no acute distress HEENT: mucous membranes moist Respiratory/Chest: no respiratory distress Cardiovascular: normal rate, pacemaker/AICD Abdomen: soft, non tender Extremities: no edema Neurologic/Psychiatric: alert, oriented x 3, responsive Laboratory Tests Test 11/16/19 04:00 White Blood Count 14.3 K/UL (4.8-10.8) H Red Blood Count 3.82 M/UL (4.20-5.40) L Hemoglobin 11.4 G/DL (12.0-16.0) L Hematocrit 31.2 % (37.0-47.0) L Mean Corpuscular Volume 82 FL (80-99) Mean Corpuscular Hemoglobin 29.8 PG (27.0-31.0) Mean Corpuscular Hemoglobin Concent 36.6 G/DL (32.0-36.0) H Red Cell Distribution Width 12.0 % (11.6-14.8) Platelet Count 246 K/UL (150-450) Mean Platelet Volume 6.0 FL (6.5-10.1) L Neutrophils (%) (Auto) 44.5 % (45.0-75.0) L Lymphocytes (%) (Auto) 29.8 % (20.0-45.0) Monocytes (%) (Auto) 7.3 % (1.0-10.0) Eosinophils (%) (Auto) 17.5 % (0.0-3.0) H Basophils (%) (Auto) 0.8 % (0.0-2.0) Prothrombin Time 28.6 SEC (9.30-11.50) H Prothromb Time International Ratio 2.8 (0.9-1.1) H Sodium Level 139 MMOL/L (136-145) Potassium Level 4.5 MMOL/L (3.5-5.1) Chloride Level 105 MMOL/L (98-107) Carbon Dioxide Level 26 MMOL/L (21-32) Anion Gap 8 mmol/L (5-15) Blood Urea Nitrogen 17 mg/dL (7-18) Creatinine 1.1 MG/DL (0.55-1.30) Estimat Glomerular Filtration Rate 49.9 mL/min (>60) Glucose Level 118 MG/DL (74-106) H Uric Acid 5.5 MG/DL (2.6-7.2) Calcium Level 8.3 MG/DL (8.5-10.1) L Phosphorus Level 2.7 MG/DL (2.5-4.9) Magnesium Level 2.2 MG/DL (1.8-2.4) Total Bilirubin 1.0 MG/DL (0.2-1.0) Aspartate Amino Transf (AST/SGOT) 26 U/L (15-37) Alanine Aminotransferase (ALT/SGPT) 25 U/L (12-78) Alkaline Phosphatase 108 U/L (46-116) Total Protein 7.9 G/DL (6.4-8.2) Albumin 3.9 G/DL (3.4-5.0) Globulin 4.0 g/dL Albumin/Globulin Ratio 1.0 (1.0-2.7) Digoxin Level 0.8 NG/ML (0.9-2.0) L Current Medications Medications (Trade) Dose Ordered Sig/Kody Route PRN Reason Start Time Stop Time Status Last Admin Dose Admin Allopurinol (Zyloprim) 100 mg DAILY ORAL 11/17/19 09:00 12/15/19 08:59 Aspirin (Ecotrin) 81 mg DAILY ORAL 11/11/19 13:30 12/26/19 13:29 11/16/19 09:27 Atenolol (Tenormin) 25 mg DAILY ORAL 11/12/19 09:00 12/12/19 08:59 11/16/19 09:28 Atorvastatin Calcium (Lipitor) 80 mg BEDTIME ORAL 11/11/19 21:00 02/09/20 20:59 11/15/19 20:20 Clonidine HCl (Catapres Tab) 0.1 mg Q4H PRN ORAL For High Blood Pressure 11/16/19 11:00 02/14/20 00:00 Digoxin (Lanoxin) 0.125 mg DAILY ORAL 11/11/19 14:30 02/09/20 14:29 11/16/19 09:27 Docusate Sodium (Colace) 100 mg THREE TIMES A DAY ORAL 11/13/19 18:00 12/13/19 17:59 11/16/19 12:14 Fish Oil (Fish Oil) 1,000 mg BID ORAL 11/14/19 18:00 12/14/19 17:59 11/16/19 09:27 Pantoprazole (Protonix) 40 mg EVERY 12 HOURS ORAL 11/13/19 21:00 12/13/19 20:59 11/16/19 09:27 Vitamin D (Vitamin D) 2,000 intlu DAILY ORAL 11/16/19 11:00 12/16/19 10:59 11/16/19 12:14 Warfarin Sodium (Coumadin per pharmacy) 1 ea DAILY PRN MISC Per rx protocol 11/11/19 12:30 12/11/19 12:29 Warfarin Sodium (Warfarin Sod) 2 mg COUMADIN ORAL 11/15/19 17:00 11/20/19 16:59 11/15/19 18:03 Álvaro Mix MD November 16, 2019 12:42
--- NOTE | 2019-11-16 13:20 | Cardiac Electrophysiology PN ---
Assessment/Plan Assessment/Plan 1. Atrial fibrillation. Continue Dig and atenolol 25 daily. On Coumadin per pharmacy. Pacer check showed 26% atrial fib. 2. Long run of 24 beats of V tach. No NH. Cardiac cath after Covid negative On Atenolol 25 daily 3. Congestive heart failure, EF of around 60%. 4. Status post St Gene pacemaker placement 08/2018 . Interrogated and showed Nl fx 5. Status post aortic and mitral valve bioprosthesis. 6. Hypotension, resolved after DC other BP meds except atenolol 7. ARF, resolved DW RN and Dr. Tolbert Subjective Subjective No more VT. Alet in NAD. AV paced. Objective Last 24 Hour Vital Signs Date Time Temp Pulse Resp B/P (MAP) Pulse Ox O2 Delivery O2 Flow Rate FiO2 11/16/19 12:00 97.5 72 20 102/57 (72) 94 11/16/19 12:00 63 11/16/19 09:28 60 143/52 11/16/19 09:27 72 11/16/19 09:00 Room Air 11/16/19 08:00 60 11/16/19 08:00 97.5 60 18 143/52 (82) 98 11/16/19 04:00 60 11/16/19 04:00 97.9 60 20 133/77 (95) 98 11/16/19 00:00 60 11/16/19 00:00 97.7 68 20 145/72 (96) 98 11/15/19 21:00 Room Air 11/15/19 20:00 60 11/15/19 20:00 97.9 60 18 154/44 (80) 98 11/15/19 16:00 73 11/15/19 16:00 97.9 96 18 137/75 (95) 99 Intake and Output 11/15/19 11/16/19 19:00 07:00 Intake Total 740 ml 60 ml Balance 740 ml 60 ml Intake Oral 740 ml 60 ml # Voids 3 2 # Bowel Movements 1 Laboratory Tests Test 11/16/19 04:00 White Blood Count 14.3 K/UL (4.8-10.8) H Red Blood Count 3.82 M/UL (4.20-5.40) L Hemoglobin 11.4 G/DL (12.0-16.0) L Hematocrit 31.2 % (37.0-47.0) L Mean Corpuscular Volume 82 FL (80-99) Mean Corpuscular Hemoglobin 29.8 PG (27.0-31.0) Mean Corpuscular Hemoglobin Concent 36.6 G/DL (32.0-36.0) H Red Cell Distribution Width 12.0 % (11.6-14.8) Platelet Count 246 K/UL (150-450) Mean Platelet Volume 6.0 FL (6.5-10.1) L Neutrophils (%) (Auto) 44.5 % (45.0-75.0) L Lymphocytes (%) (Auto) 29.8 % (20.0-45.0) Monocytes (%) (Auto) 7.3 % (1.0-10.0) Eosinophils (%) (Auto) 17.5 % (0.0-3.0) H Basophils (%) (Auto) 0.8 % (0.0-2.0) Prothrombin Time 28.6 SEC (9.30-11.50) H Prothromb Time International Ratio 2.8 (0.9-1.1) H Sodium Level 139 MMOL/L (136-145) Potassium Level 4.5 MMOL/L (3.5-5.1) Chloride Level 105 MMOL/L (98-107) Carbon Dioxide Level 26 MMOL/L (21-32) Anion Gap 8 mmol/L (5-15) Blood Urea Nitrogen 17 mg/dL (7-18) Creatinine 1.1 MG/DL (0.55-1.30) Estimat Glomerular Filtration Rate 49.9 mL/min (>60) Glucose Level 118 MG/DL (74-106) H Uric Acid 5.5 MG/DL (2.6-7.2) Calcium Level 8.3 MG/DL (8.5-10.1) L Phosphorus Level 2.7 MG/DL (2.5-4.9) Magnesium Level 2.2 MG/DL (1.8-2.4) Total Bilirubin 1.0 MG/DL (0.2-1.0) Aspartate Amino Transf (AST/SGOT) 26 U/L (15-37) Alanine Aminotransferase (ALT/SGPT) 25 U/L (12-78) Alkaline Phosphatase 108 U/L (46-116) Total Protein 7.9 G/DL (6.4-8.2) Albumin 3.9 G/DL (3.4-5.0) Globulin 4.0 g/dL Albumin/Globulin Ratio 1.0 (1.0-2.7) Digoxin Level 0.8 NG/ML (0.9-2.0) L Objective HEAD AND NECK: Shows mild JVD. LUNGS: Clear. CARDIOVASCULAR: Regular S1 and S2 with no gallop. Sternotomy scar is intact. The pacemaker in the left subclavian. ABDOMEN: Soft. EXTREMITIES: No pitting edema. Pb Fairchild MD November 16, 2019 13:20
[2019-11-16 16:00] VITALS: BP 147/59
--- NOTE | 2019-11-16 16:28 | General Progress Note ---
Assessment/Plan Problem List: (1) Atrial fibrillation ICD Codes: I48.91 - Unspecified atrial fibrillation SNOMED: 37346747 (2) COVID-19 ruled out ICD Codes: Z03.818 - Encounter for observation for suspected exposure to other biological agents ruled out SNOMED: 732495623, 613201202 (3) Upper respiratory infection ICD Codes: J06.9 - Acute upper respiratory infection, unspecified SNOMED: 71961540 (4) Suspected COVID-19 virus infection ICD Codes: Z20.828 - Contact with and (suspected) exposure to other viral communicable diseases SNOMED: 017040019 (5) CHF (congestive heart failure) ICD Codes: I50.9 - Heart failure, unspecified SNOMED: 06940820 Status: progressing Assessment/Plan: covid positive coagulapathy improved coumadin per heme/onc cardiac cath [place] [employer] s/p runs of VT azotemia leukocytosis is getting worse Subjective ROS Limited/Unobtainable: Yes Allergies: Coded Allergies: PENICILLIN (Unverified Allergy, Unknown, 07/02/15) Objective Last 24 Hour Vital Signs Date Time Temp Pulse Resp B/P (MAP) Pulse Ox O2 Delivery O2 Flow Rate FiO2 11/16/19 12:00 97.5 72 20 102/57 (72) 94 11/16/19 12:00 63 11/16/19 09:28 60 143/52 11/16/19 09:27 72 11/16/19 09:00 Room Air 11/16/19 08:00 60 11/16/19 08:00 97.5 60 18 143/52 (82) 98 11/16/19 04:00 60 11/16/19 04:00 97.9 60 20 133/77 (95) 98 11/16/19 00:00 60 11/16/19 00:00 97.7 68 20 145/72 (96) 98 11/15/19 21:00 Room Air 11/15/19 20:00 60 11/15/19 20:00 97.9 60 18 154/44 (80) 98 Intake and Output 11/15/19 11/16/19 19:00 07:00 Intake Total 740 ml 60 ml Balance 740 ml 60 ml Intake Oral 740 ml 60 ml # Voids 3 2 # Bowel Movements 1 Laboratory Tests 11/16/19 04:00: White Blood Count 14.3H, Red Blood Count 3.82L, Hemoglobin 11.4L, Hematocrit 31.2L, Mean Corpuscular Volume 82, Mean Corpuscular Hemoglobin 29.8, Mean Corpuscular Hemoglobin Concent 36.6H, Red Cell Distribution Width 12.0, Platelet Count 246, Mean Platelet Volume 6.0L, Neutrophils (%) (Auto) 44.5L, Lymphocytes (%) (Auto) 29.8, Monocytes (%) (Auto) 7.3, Eosinophils (%) (Auto) 17.5H, Basophils (%) (Auto) 0.8, Prothrombin Time 28.6H, Prothromb Time International Ratio 2.8H, Sodium Level 139, Potassium Level 4.5, Chloride Level 105, Carbon Dioxide Level 26, Anion Gap 8, Blood Urea Nitrogen 17, Creatinine 1.1, Estimat Glomerular Filtration Rate 49.9, Glucose Level 118H, Uric Acid 5.5 , Calcium Level 8.3L, Phosphorus Level 2.7, Magnesium Level 2.2, Total Bilirubin 1.0, Aspartate Amino Transf (AST/SGOT) 26, Alanine Aminotransferase ( ALT/SGPT) 25, Alkaline Phosphatase 108, Total Protein 7.9, Albumin 3.9, Globulin 4.0, Albumin/Globulin Ratio 1.0, Digoxin Level 0.8L Height (Feet): 5 Height (Inches): 2.00 Weight (Pounds): 136 Giuliano Krueger MD November 16, 2019 16:28
[2019-11-16] MEDS: Warfarin Sodium 1mg ORAL SCH (17:31)
[2019-11-16 20:00] VITALS: BP 154/67
[2019-11-16] MEDS: Atorvastatin 80mg tab ORAL SCH (20:46)
[2019-11-17] VITALS (7 sets, daily range): BP systolic 134–152; BP diastolic 56–65
[2019-11-17 08:19] LABS: BASOPHILS % (AUTO) 0.7 % (0.0-2.0); EOSINOPHILS % (AUTO) 13.2 % (0.0-3.0); HEMATOCRIT 30.8 % (37.0-47.0); HEMOGLOBIN 11.1 G/DL (12.0-16.0); LYMPHOCYTES % (AUTO) 24.4 % (20.0-45.0); MEAN CORPUSCULAR VOLUME 82 FL (80-99); MONOCYTES % (AUTO) 7.7 % (1.0-10.0); PLATELET COUNT 241 K/UL (150-450); RED BLOOD COUNT 3.76 M/UL (4.20-5.40); RED CELL DISTRIBUTION WIDTH 11.9 % (11.6-14.8); WHITE BLOOD COUNT 13.7 K/UL (4.8-10.8)
[2019-11-17 08:37] LABS: INR 2.7 (0.9-1.1)
[2019-11-17] MEDS: Docusate 100mg cap ORAL SCH ×3 (09:54→18:24)
[2019-11-17] MEDS: Aspirin EC 81mg tab ORAL SCH (09:55)
[2019-11-17] MEDS: Digoxin 0.125mg tab ORAL SCH (09:56)
[2019-11-17] MEDS: Allopurinol 100mg Tab ORAL SCH (09:57)
[2019-11-17] MEDS: Vitamin D 1000 IU Tab ORAL SCH (09:57)
[2019-11-17] MEDS: Atenolol 25mg tab ORAL SCH (09:57)
--- NOTE | 2019-11-17 10:29 | Hematology/Onc Progress Note ---
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 Fairchild --> inr trend 2.7 # Anemia of chronic disease --> hgb 13-->12-->11 --> smear is noted --> no hemolysis is noted # BARNEY --> cr 0.9-->1.8->1.1 --> may be due to diuretics # Hyperproteinemia --> with elev protien 8 --> spep shows no oligoclonal bands # CHF (congestive heart failure) --> diuresis as per cards # Suspected COVID-19 virus infection --> iso precautions --> per id # HTn --as per cards, atenolol --> recs noted # Status post pacemaker placement. # Status post aortic and mitral valve bioprosthesis. # Htn # Dvt ppx coumadin The timing of this note does not necessarily reflect the time of the patient was seen. Greatly appreciate consultation. Subjective Constitutional: Denies: no symptoms, chills, fever, malaise, weakness, other HEENT: Denies: no symptoms, eye pain, blurred vision, tearing, double vision, ear pain, ear discharge, nose pain, nose congestion, throat pain, throat swelling, mouth pain, mouth swelling, other Cardiovascular: Denies: no symptoms, chest pain, edema, irregular heart rate, lightheadedness, palpitations, syncope, other Respiratory: Denies: no symptoms, cough, shortness of breath, SOB with excertion, SOB at rest, sputum, wheezing, other Gastrointestinal/Abdominal: Denies: no symptoms, abdomen distended, abdominal pain, black stools, tarry stools, blood in stool, constipated, diarrhea, difficulty swallowing, nausea, poor appetite, poor fluid intake, rectal bleeding , vomiting, other Neurologic/Psychiatric: Denies: no symptoms, anxiety, depressed, emotional problems, headache, numbness, paresthesia, pre-existing deficit, seizure, tingling, tremors, weakness, other Endocrine: Denies: no symptoms, excessive sweating, flushing, intolerance to cold, intolerance to heat, increased hunger, increased thirst, increased urine, unexplained weight gain, unexplained weight loss, other Allergies: Coded Allergies: PENICILLIN (Unverified Allergy, Unknown, 07/02/15) Subjective 11/12 awake and alert, inr 3.5, no events 11/13 labs reviewed, coagulopathy improved, room air 11/14 no events, awake, alert, labs noted, cr is better 11/15 labs are noted, on coumadin, adjust to inr, no bleeding 11/16 labs reviewed, no bleeding, hgb 11 Objective Objective Current Medications Medications (Trade) Dose Ordered Sig/Kody Route PRN Reason Start Time Stop Time Status Last Admin Dose Admin Allopurinol (Zyloprim) 100 mg DAILY ORAL 11/17/19 09:00 12/15/19 08:59 11/17/19 09:57 Aspirin (Ecotrin) 81 mg DAILY ORAL 11/11/19 13:30 12/26/19 13:29 11/17/19 09:55 Atenolol (Tenormin) 25 mg DAILY ORAL 11/12/19 09:00 12/12/19 08:59 11/17/19 09:57 Atorvastatin Calcium (Lipitor) 80 mg BEDTIME ORAL 11/11/19 21:00 02/09/20 20:59 11/16/19 20:46 Clonidine HCl (Catapres Tab) 0.1 mg Q4H PRN ORAL For High Blood Pressure 11/16/19 11:00 02/14/20 00:00 Digoxin (Lanoxin) 0.125 mg DAILY ORAL 11/11/19 14:30 02/09/20 14:29 11/17/19 09:56 Docusate Sodium (Colace) 100 mg THREE TIMES A DAY ORAL 11/13/19 18:00 12/13/19 17:59 11/17/19 09:54 Fish Oil (Fish Oil) 1,000 mg BID ORAL 11/14/19 18:00 12/14/19 17:59 11/17/19 09:56 Pantoprazole (Protonix) 40 mg EVERY 12 HOURS ORAL 11/13/19 21:00 12/13/19 20:59 11/17/19 09:56 Vitamin D (Vitamin D) 2,000 intlu DAILY ORAL 11/16/19 11:00 12/16/19 10:59 11/17/19 09:57 Warfarin Sodium (Coumadin per pharmacy) 1 ea DAILY PRN MISC Per rx protocol 11/11/19 12:30 12/11/19 12:29 Warfarin Sodium (Warfarin Sod) 2 mg COUMADIN ORAL 11/15/19 17:00 11/20/19 16:59 11/16/19 17:31 Last 24 Hour Vital Signs Date Time Temp Pulse Resp B/P (MAP) Pulse Ox O2 Delivery O2 Flow Rate FiO2 11/17/19 09:57 60 151/56 11/17/19 09:56 60 11/17/19 08:00 97.9 60 18 151/56 (87) 96 11/17/19 08:00 Room Air 11/17/19 04:00 60 11/17/19 04:00 98.1 62 18 143/63 (89) 98 11/17/19 00:00 97.5 60 18 134/62 (86) 98 11/17/19 00:00 62 11/16/19 21:00 Room Air 11/16/19 20:00 60 11/16/19 20:00 97.6 60 18 154/67 (96) 97 11/16/19 16:00 97.9 72 58 147/59 (88) 97 11/16/19 16:00 63 11/16/19 12:00 97.5 72 20 102/57 (72) 94 11/16/19 12:00 63 11/16/19 09:28 60 143/52 11/16/19 09:27 72 11/16/19 09:00 Room Air 11/16/19 08:00 60 11/16/19 08:00 97.5 60 18 143/52 (82) 98 11/16/19 04:00 60 11/16/19 04:00 97.9 60 20 133/77 (95) 98 11/16/19 00:00 60 11/16/19 00:00 97.7 68 20 145/72 (96) 98 11/15/19 21:00 Room Air 11/15/19 20:00 60 11/15/19 20:00 97.9 60 18 154/44 (80) 98 11/15/19 16:00 73 11/15/19 16:00 97.9 96 18 137/75 (95) 99 11/15/19 12:00 60 11/15/19 12:00 97.5 86 18 143/50 (81) 96 Intake and Output 11/16/19 11/17/19 19:00 07:00 Intake Total 960 ml 400 ml Balance 960 ml 400 ml Intake Oral 960 ml 400 ml # Voids 3 3 # Bowel Movements 1 Labs Test 11/15/19 04:15 11/16/19 04:00 11/17/19 07:30 Prothrombin Time 34.5 SEC (9.30-11.50) 28.6 SEC (9.30-11.50) 27.8 SEC (9.30-11.50) Prothromb Time International Ratio 3.4 (0.9-1.1) 2.8 (0.9-1.1) 2.7 (0.9-1.1) White Blood Count 14.3 K/UL (4.8-10.8) 13.7 K/UL (4.8-10.8) Red Blood Count 3.82 M/UL (4.20-5.40) 3.76 M/UL (4.20-5.40) Hemoglobin 11.4 G/DL (12.0-16.0) 11.1 G/DL (12.0-16.0) Hematocrit 31.2 % (37.0-47.0) 30.8 % (37.0-47.0) Mean Corpuscular Volume 82 FL (80-99) 82 FL (80-99) Mean Corpuscular Hemoglobin 29.8 PG (27.0-31.0) 29.6 PG (27.0-31.0) Mean Corpuscular Hemoglobin Concent 36.6 G/DL (32.0-36.0) 36.1 G/DL (32.0-36.0) Red Cell Distribution Width 12.0 % (11.6-14.8) 11.9 % (11.6-14.8) Platelet Count 246 K/UL (150-450) 241 K/UL (150-450) Mean Platelet Volume 6.0 FL (6.5-10.1) 5.8 FL (6.5-10.1) Neutrophils (%) (Auto) 44.5 % (45.0-75.0) 54.0 % (45.0-75.0) Lymphocytes (%) (Auto) 29.8 % (20.0-45.0) 24.4 % (20.0-45.0) Monocytes (%) (Auto) 7.3 % (1.0-10.0) 7.7 % (1.0-10.0) Eosinophils (%) (Auto) 17.5 % (0.0-3.0) 13.2 % (0.0-3.0) Basophils (%) (Auto) 0.8 % (0.0-2.0) 0.7 % (0.0-2.0) Sodium Level 139 MMOL/L (136-145) Potassium Level 4.5 MMOL/L (3.5-5.1) Chloride Level 105 MMOL/L (98-107) Carbon Dioxide Level 26 MMOL/L (21-32) Anion Gap 8 mmol/L (5-15) Blood Urea Nitrogen 17 mg/dL (7-18) Creatinine 1.1 MG/DL (0.55-1.30) Estimat Glomerular Filtration Rate 49.9 mL/min (>60) Glucose Level 118 MG/DL (74-106) Uric Acid 5.5 MG/DL (2.6-7.2) Calcium Level 8.3 MG/DL (8.5-10.1) Phosphorus Level 2.7 MG/DL (2.5-4.9) Magnesium Level 2.2 MG/DL (1.8-2.4) Total Bilirubin 1.0 MG/DL (0.2-1.0) Aspartate Amino Transf (AST/SGOT) 26 U/L (15-37) Alanine Aminotransferase (ALT/SGPT) 25 U/L (12-78) Alkaline Phosphatase 108 U/L (46-116) Total Protein 7.9 G/DL (6.4-8.2) Albumin 3.9 G/DL (3.4-5.0) Globulin 4.0 g/dL Albumin/Globulin Ratio 1.0 (1.0-2.7) Digoxin Level 0.8 NG/ML (0.9-2.0) Height (Feet): 5 Height (Inches): 2.00 Weight (Pounds): 136 Objective Physical Exam: Vitals: reviewed General: NAD HEENT: nc, at Neck: supple Chest: crackles noted bilaterally+++ Cardiovascular: RRR, no s3, s4 Abdomen: soft, nontender, nd Extremities: no cce, normal range of motion Neuro: alert and oriented Mahesh Call MD November 17, 2019 10:29
--- NOTE | 2019-11-17 10:53 | Infectious Diseases Prog Note ---
Assessment/Plan Assessment/Plan IMPRESSION: Mild COVID19 disease Leukocytosis Mild pulmonary hypertension Hypertension, Gout, valvular heart disease, status post mitral & aortic bioprosthetic valve placement, Atrial fibrillation, Acute renal failure improving RECOMMENDATION: Observe off antibiotic. Will f/u CXR Subjective ROS Limited/Unobtainable: No Respiratory: Reports: no symptoms Cardiovascular: Reports: no symptoms Gastrointestinal/Abdominal: Reports: no symptoms Genitourinary: Reports: no symptoms Allergies: Coded Allergies: PENICILLIN (Unverified Allergy, Unknown, 07/02/15) Objective Vital Signs Last 24 Hour Vital Signs Date Time Temp Pulse Resp B/P (MAP) Pulse Ox O2 Delivery O2 Flow Rate FiO2 11/17/19 09:57 60 151/56 11/17/19 09:56 60 11/17/19 08:00 97.9 60 18 151/56 (87) 96 11/17/19 08:00 Room Air 11/17/19 04:00 60 11/17/19 04:00 98.1 62 18 143/63 (89) 98 11/17/19 00:00 97.5 60 18 134/62 (86) 98 11/17/19 00:00 62 11/16/19 21:00 Room Air 11/16/19 20:00 60 11/16/19 20:00 97.6 60 18 154/67 (96) 97 11/16/19 16:00 97.9 72 58 147/59 (88) 97 11/16/19 16:00 63 11/16/19 12:00 97.5 72 20 102/57 (72) 94 11/16/19 12:00 63 Height (Feet): 5 Height (Inches): 2.00 Weight (Pounds): 136 General Appearance: no acute distress HEENT: mucous membranes moist Respiratory/Chest: no respiratory distress Cardiovascular: normal rate Abdomen: soft, non tender Extremities: no edema Neurologic/Psychiatric: alert, oriented x 3, responsive Laboratory Tests Test 11/17/19 07:30 White Blood Count 13.7 K/UL (4.8-10.8) H Red Blood Count 3.76 M/UL (4.20-5.40) L Hemoglobin 11.1 G/DL (12.0-16.0) L Hematocrit 30.8 % (37.0-47.0) L Mean Corpuscular Volume 82 FL (80-99) Mean Corpuscular Hemoglobin 29.6 PG (27.0-31.0) Mean Corpuscular Hemoglobin Concent 36.1 G/DL (32.0-36.0) H Red Cell Distribution Width 11.9 % (11.6-14.8) Platelet Count 241 K/UL (150-450) Mean Platelet Volume 5.8 FL (6.5-10.1) L Neutrophils (%) (Auto) 54.0 % (45.0-75.0) Lymphocytes (%) (Auto) 24.4 % (20.0-45.0) Monocytes (%) (Auto) 7.7 % (1.0-10.0) Eosinophils (%) (Auto) 13.2 % (0.0-3.0) H Basophils (%) (Auto) 0.7 % (0.0-2.0) Prothrombin Time 27.8 SEC (9.30-11.50) H Prothromb Time International Ratio 2.7 (0.9-1.1) H Current Medications Medications (Trade) Dose Ordered Sig/Kody Route PRN Reason Start Time Stop Time Status Last Admin Dose Admin Allopurinol (Zyloprim) 100 mg DAILY ORAL 11/17/19 09:00 12/15/19 08:59 11/17/19 09:57 Aspirin (Ecotrin) 81 mg DAILY ORAL 11/11/19 13:30 12/26/19 13:29 11/17/19 09:55 Atenolol (Tenormin) 25 mg DAILY ORAL 11/12/19 09:00 12/12/19 08:59 11/17/19 09:57 Atorvastatin Calcium (Lipitor) 80 mg BEDTIME ORAL 11/11/19 21:00 02/09/20 20:59 11/16/19 20:46 Clonidine HCl (Catapres Tab) 0.1 mg Q4H PRN ORAL For High Blood Pressure 11/16/19 11:00 02/14/20 00:00 Digoxin (Lanoxin) 0.125 mg DAILY ORAL 11/11/19 14:30 02/09/20 14:29 11/17/19 09:56 Docusate Sodium (Colace) 100 mg THREE TIMES A DAY ORAL 11/13/19 18:00 12/13/19 17:59 11/17/19 09:54 Fish Oil (Fish Oil) 1,000 mg BID ORAL 11/14/19 18:00 12/14/19 17:59 11/17/19 09:56 Pantoprazole (Protonix) 40 mg EVERY 12 HOURS ORAL 11/13/19 21:00 12/13/19 20:59 11/17/19 09:56 Vitamin D (Vitamin D) 2,000 intlu DAILY ORAL 11/16/19 11:00 12/16/19 10:59 11/17/19 09:57 Warfarin Sodium (Coumadin per pharmacy) 1 ea DAILY PRN MISC Per rx protocol 11/11/19 12:30 12/11/19 12:29 Warfarin Sodium (Warfarin Sod) 2 mg COUMADIN ORAL 11/15/19 17:00 11/20/19 16:59 11/16/19 17:31 Álvaro Mix MD November 17, 2019 10:53
--- NOTE | 2019-11-17 11:21 | Diagnostic Imaging Report ---
Indication: Shortness of breath Technique: One view of the chest Comparison: 11/11/2019 Findings: Better inspiration currently. Bilateral mostly interstitial parenchymal opacities are again demonstrated, probably unchanged on the right allowing for differences in inspiration, improved on the left. Left chest pacemaker is again demonstrated. The heart is borderline enlarged. There is evidence of prior cardiac valve repair. Impression: Improved left and probably unchanged right lung parenchymal infiltrates versus edema, since prior study of 11/11/2019
--- NOTE | 2019-11-17 13:08 | Nephrology Progress Note ---
Assessment/Plan Problem List: (1) BARNEY (acute kidney injury) (2) Atrial fibrillation (3) Pacemaker (4) Hypotension Assessment: Episodic Assessment Acute renal failure multifactorial -Most likely due to combination of diuretics and ALPESH inhibitors -Episodic hypotension Other conditions: Atrial fibrillation Elevated hemoglobin A1c to 6.2 Status post pacemaker August 2018 Longer run of ventricular tachycardia 24 beats Echocardiogram suggests ejection fraction of 60% Status post aortic and mitral valve bioprosthesis Plan Today's labs reviewed Off Lotensin and Lasix Check renal parameters as needed Avoid nephrotoxic's Keep the blood pressure above 100 systolic Monitor INR since the patient is on Coumadin Protonix and Colace p.o. Allopurinol for high uric acid Fish oil for high triglycerides Subjective ROS Limited/Unobtainable: No Constitutional: Reports: malaise Objective Objective Last 24 Hour Vital Signs Date Time Temp Pulse Resp B/P (MAP) Pulse Ox O2 Delivery O2 Flow Rate FiO2 11/17/19 12:00 60 11/17/19 09:57 60 151/56 11/17/19 09:56 60 11/17/19 08:00 97.9 60 18 151/56 (87) 96 11/17/19 08:00 Room Air 11/17/19 08:00 61 11/17/19 04:00 60 11/17/19 04:00 98.1 62 18 143/63 (89) 98 11/17/19 00:00 97.5 60 18 134/62 (86) 98 11/17/19 00:00 62 11/16/19 21:00 Room Air 11/16/19 20:00 60 11/16/19 20:00 97.6 60 18 154/67 (96) 97 11/16/19 16:00 97.9 72 58 147/59 (88) 97 11/16/19 16:00 63 Intake and Output 11/16/19 11/17/19 19:00 07:00 Intake Total 960 ml 400 ml Balance 960 ml 400 ml Intake Oral 960 ml 400 ml # Voids 3 3 # Bowel Movements 1 Laboratory Tests 11/17/19 07:30: White Blood Count 13.7H, Red Blood Count 3.76L, Hemoglobin 11.1L, Hematocrit 30.8L, Mean Corpuscular Volume 82, Mean Corpuscular Hemoglobin 29.6, Mean Corpuscular Hemoglobin Concent 36.1H, Red Cell Distribution Width 11.9, Platelet Count 241, Mean Platelet Volume 5.8L, Neutrophils (%) (Auto) 54.0, Lymphocytes (%) (Auto) 24.4, Monocytes (%) (Auto) 7.7, Eosinophils (%) (Auto) 13.2H, Basophils (%) (Auto) 0.7, Prothrombin Time 27.8H, Prothromb Time International Ratio 2.7H Height (Feet): 5 Height (Inches): 2.00 Weight (Pounds): 136 General Appearance: no apparent distress Cardiovascular: normal rate Respiratory/Chest: decreased breath sounds Abdomen: soft Objective No change Riaz Tolbert MD November 17, 2019 13:08
--- NOTE | 2019-11-17 13:16 | Cardiac Electrophysiology PN ---
Assessment/Plan Assessment/Plan 1. Atrial fibrillation. Continue Dig and atenolol 25 daily. On Coumadin per pharmacy. Pacer check showed 26% atrial fib. 2. Long run of 24 beats of V tach. No VA. Cardiac cath after Covid negative On Atenolol 25 daily 3. Congestive heart failure, EF of around 60%. 4. Status post St Gene pacemaker placement 08/2018 . Interrogated and showed Nl fx 5. Status post aortic and mitral valve bioprosthesis. 6. Hypotension, resolved 7. ARF, resolved DW RN and Dr. Tolbert Subjective Subjective No more VT . AV paced. Objective Last 24 Hour Vital Signs Date Time Temp Pulse Resp B/P (MAP) Pulse Ox O2 Delivery O2 Flow Rate FiO2 11/17/19 13:05 97.9 60 20 142/58 (86) 97 11/17/19 12:00 60 11/17/19 12:00 97.9 60 20 142/58 (86) 97 60 11/17/19 09:57 60 151/56 11/17/19 09:56 60 11/17/19 08:00 97.9 60 18 151/56 (87) 96 11/17/19 08:00 Room Air 11/17/19 08:00 61 11/17/19 04:00 60 11/17/19 04:00 98.1 62 18 143/63 (89) 98 11/17/19 00:00 97.5 60 18 134/62 (86) 98 11/17/19 00:00 62 11/16/19 21:00 Room Air 11/16/19 20:00 60 11/16/19 20:00 97.6 60 18 154/67 (96) 97 11/16/19 16:00 97.9 72 58 147/59 (88) 97 11/16/19 16:00 63 Intake and Output 11/16/19 11/17/19 19:00 07:00 Intake Total 960 ml 400 ml Balance 960 ml 400 ml Intake Oral 960 ml 400 ml # Voids 3 3 # Bowel Movements 1 Laboratory Tests Test 11/17/19 07:30 White Blood Count 13.7 K/UL (4.8-10.8) H Red Blood Count 3.76 M/UL (4.20-5.40) L Hemoglobin 11.1 G/DL (12.0-16.0) L Hematocrit 30.8 % (37.0-47.0) L Mean Corpuscular Volume 82 FL (80-99) Mean Corpuscular Hemoglobin 29.6 PG (27.0-31.0) Mean Corpuscular Hemoglobin Concent 36.1 G/DL (32.0-36.0) H Red Cell Distribution Width 11.9 % (11.6-14.8) Platelet Count 241 K/UL (150-450) Mean Platelet Volume 5.8 FL (6.5-10.1) L Neutrophils (%) (Auto) 54.0 % (45.0-75.0) Lymphocytes (%) (Auto) 24.4 % (20.0-45.0) Monocytes (%) (Auto) 7.7 % (1.0-10.0) Eosinophils (%) (Auto) 13.2 % (0.0-3.0) H Basophils (%) (Auto) 0.7 % (0.0-2.0) Prothrombin Time 27.8 SEC (9.30-11.50) H Prothromb Time International Ratio 2.7 (0.9-1.1) H Objective HEAD AND NECK: Shows mild JVD. LUNGS: Clear. CARDIOVASCULAR: Regular S1 and S2 with no gallop. Sternotomy scar is intact. The pacemaker in the left subclavian. ABDOMEN: Soft. EXTREMITIES: No pitting edema. Pb Fairchild MD November 17, 2019 13:16
--- NOTE | 2019-11-17 15:37 | Pulmonology Progress Note ---
Subjective ROS Limited/Unobtainable: No Interval Events: None new Constitutional: Reports: no symptoms HEENT: Repors: no symptoms Respiratory: Reports: no symptoms Cardiovascular: Reports: no symptoms Gastrointestinal/Abdominal: Reports: no symptoms Musculoskeletal: Reports: other - mild shoulder pain Allergies: Coded Allergies: PENICILLIN (Unverified Allergy, Unknown, 07/02/15) Objective Last 24 Hour Vital Signs Date Time Temp Pulse Resp B/P (MAP) Pulse Ox O2 Delivery O2 Flow Rate FiO2 11/17/19 13:05 97.9 60 20 142/58 (86) 97 11/17/19 12:00 60 11/17/19 12:00 97.9 60 20 142/58 (86) 97 60 11/17/19 09:57 60 151/56 11/17/19 09:56 60 11/17/19 08:00 97.9 60 18 151/56 (87) 96 11/17/19 08:00 Room Air 11/17/19 08:00 61 11/17/19 04:00 60 11/17/19 04:00 98.1 62 18 143/63 (89) 98 11/17/19 00:00 97.5 60 18 134/62 (86) 98 11/17/19 00:00 62 11/16/19 21:00 Room Air 11/16/19 20:00 60 11/16/19 20:00 97.6 60 18 154/67 (96) 97 11/16/19 16:00 97.9 72 58 147/59 (88) 97 11/16/19 16:00 63 Intake and Output 11/16/19 11/17/19 19:00 07:00 Intake Total 960 ml 400 ml Balance 960 ml 400 ml Intake Oral 960 ml 400 ml # Voids 3 3 # Bowel Movements 1 General Appearance: no acute distress HEENT: normocephalic Respiratory: chest wall non-tender, lungs clear Cardiovascular: normal peripheral pulses Abdomen: normal bowel sounds Laboratory Tests 11/17/19 07:30: White Blood Count 13.7H, Red Blood Count 3.76L, Hemoglobin 11.1L, Hematocrit 30.8L, Mean Corpuscular Volume 82, Mean Corpuscular Hemoglobin 29.6, Mean Corpuscular Hemoglobin Concent 36.1H, Red Cell Distribution Width 11.9, Platelet Count 241, Mean Platelet Volume 5.8L, Neutrophils (%) (Auto) 54.0, Lymphocytes (%) (Auto) 24.4, Monocytes (%) (Auto) 7.7, Eosinophils (%) (Auto) 13.2H, Basophils (%) (Auto) 0.7, Prothrombin Time 27.8H, Prothromb Time International Ratio 2.7H Current Medications Medications (Trade) Dose Ordered Sig/Kody Route PRN Reason Start Time Stop Time Status Last Admin Dose Admin Allopurinol (Zyloprim) 100 mg DAILY ORAL 11/17/19 09:00 12/15/19 08:59 11/17/19 09:57 Aspirin (Ecotrin) 81 mg DAILY ORAL 11/11/19 13:30 12/26/19 13:29 11/17/19 09:55 Atenolol (Tenormin) 25 mg DAILY ORAL 11/12/19 09:00 12/12/19 08:59 11/17/19 09:57 Atorvastatin Calcium (Lipitor) 80 mg BEDTIME ORAL 11/11/19 21:00 02/09/20 20:59 11/16/19 20:46 Clonidine HCl (Catapres Tab) 0.1 mg Q4H PRN ORAL For High Blood Pressure 11/16/19 11:00 02/14/20 00:00 Digoxin (Lanoxin) 0.125 mg DAILY ORAL 11/11/19 14:30 02/09/20 14:29 11/17/19 09:56 Docusate Sodium (Colace) 100 mg THREE TIMES A DAY ORAL 11/13/19 18:00 12/13/19 17:59 11/17/19 13:47 Fish Oil (Fish Oil) 1,000 mg BID ORAL 11/14/19 18:00 12/14/19 17:59 11/17/19 09:56 Pantoprazole (Protonix) 40 mg EVERY 12 HOURS ORAL 11/13/19 21:00 12/13/19 20:59 11/17/19 09:56 Vitamin D (Vitamin D) 2,000 intlu DAILY ORAL 11/16/19 11:00 12/16/19 10:59 11/17/19 09:57 Warfarin Sodium (Coumadin per pharmacy) 1 ea DAILY PRN MISC Per rx protocol 11/11/19 12:30 12/11/19 12:29 Warfarin Sodium (Warfarin Sod) 2 mg COUMADIN ORAL 11/15/19 17:00 11/20/19 16:59 11/16/19 17:31 Assessment/Plan Assessment/Plan IMPRESSION: 1. Pulmonary edema. 2. Pacemaker. 3. History of cardiac surgery. 4. Gout. 5. Hypertension. 6. Coagulopathy. DISCUSSION: Continue home medications. Diuresis as needed Saturating well on RA I will follow carefully. Kushal Blankenship M.D. Kushal Blankenship MD November 17, 2019 15:37
[2019-11-17] MEDS: Warfarin Sodium 1mg ORAL SCH (18:24)
[2019-11-17] MEDS: Atorvastatin 80mg tab ORAL SCH (21:14)
--- NOTE | 2019-11-17 21:46 | General Progress Note ---
Assessment/Plan Problem List: (1) Atrial fibrillation ICD Codes: I48.91 - Unspecified atrial fibrillation SNOMED: 97155250 (2) COVID-19 ruled out ICD Codes: Z03.818 - Encounter for observation for suspected exposure to other biological agents ruled out SNOMED: 093014334, 031438076 (3) Upper respiratory infection ICD Codes: J06.9 - Acute upper respiratory infection, unspecified SNOMED: 49695038 (4) Suspected COVID-19 virus infection ICD Codes: Z20.828 - Contact with and (suspected) exposure to other viral communicable diseases SNOMED: 973794115 (5) CHF (congestive heart failure) ICD Codes: I50.9 - Heart failure, unspecified SNOMED: 20228784 Status: progressing Assessment/Plan: covid positive coagulapathy improved not hypoxic reivewed chart and labs cardiac cath paula wood miller s/p runs of [place] azotemia leukocytosis is improving Subjective ROS Limited/Unobtainable: Yes Allergies: Coded Allergies: PENICILLIN (Unverified Allergy, Unknown, 07/02/15) Objective Last 24 Hour Vital Signs Date Time Temp Pulse Resp B/P (MAP) Pulse Ox O2 Delivery O2 Flow Rate FiO2 11/17/19 16:00 97.9 60 18 152/65 (94) 60 11/17/19 16:00 60 11/17/19 13:05 97.9 60 20 142/58 (86) 97 11/17/19 12:00 60 11/17/19 12:00 97.9 60 20 142/58 (86) 97 60 11/17/19 09:57 60 151/56 11/17/19 09:56 60 11/17/19 08:00 97.9 60 18 151/56 (87) 96 11/17/19 08:00 Room Air 11/17/19 08:00 61 11/17/19 04:00 60 11/17/19 04:00 98.1 62 18 143/63 (89) 98 11/17/19 00:00 97.5 60 18 134/62 (86) 98 11/17/19 00:00 62 Intake and Output 11/16/19 11/17/19 19:00 07:00 Intake Total 960 ml 400 ml Balance 960 ml 400 ml Intake Oral 960 ml 400 ml # Voids 3 3 # Bowel Movements 1 Laboratory Tests 11/17/19 07:30: White Blood Count 13.7H, Red Blood Count 3.76L, Hemoglobin 11.1L, Hematocrit 30.8L, Mean Corpuscular Volume 82, Mean Corpuscular Hemoglobin 29.6, Mean Corpuscular Hemoglobin Concent 36.1H, Red Cell Distribution Width 11.9, Platelet Count 241, Mean Platelet Volume 5.8L, Neutrophils (%) (Auto) 54.0, Lymphocytes (%) (Auto) 24.4, Monocytes (%) (Auto) 7.7, Eosinophils (%) (Auto) 13.2H, Basophils (%) (Auto) 0.7, Prothrombin Time 27.8H, Prothromb Time International Ratio 2.7H Height (Feet): 5 Height (Inches): 2.00 Weight (Pounds): 136 Giuliano Krueger MD November 17, 2019 21:46
[2019-11-18] VITALS: BP 136/62
[2019-11-18 04:00] VITALS: BP 144/60
[2019-11-18 07:26] LABS: INR 2.3 (0.9-1.1)
[2019-11-18 08:00] VITALS: BP 105/51
[2019-11-18] MEDS: Vitamin D 1000 IU Tab ORAL SCH (08:45)
[2019-11-18] MEDS: Aspirin EC 81mg tab ORAL SCH (08:45)
[2019-11-18] MEDS: Allopurinol 100mg Tab ORAL SCH (08:46)
[2019-11-18] MEDS: Docusate 100mg cap ORAL SCH ×3 (08:46→17:06)
[2019-11-18] MEDS: Atenolol 25mg tab ORAL SCH (09:00)
[2019-11-18] MEDS: Digoxin 0.125mg tab ORAL SCH (09:00)
--- NOTE | 2019-11-18 10:55 | Pulmonology Progress Note ---
Subjective ROS Limited/Unobtainable: Yes Interval Events: None new Constitutional: Reports: no symptoms HEENT: Repors: no symptoms Respiratory: Reports: no symptoms Cardiovascular: Reports: no symptoms Gastrointestinal/Abdominal: Reports: no symptoms Musculoskeletal: Reports: other - mild shoulder pain Allergies: Coded Allergies: PENICILLIN (Unverified Allergy, Unknown, 07/02/15) Objective Last 24 Hour Vital Signs Date Time Temp Pulse Resp B/P (MAP) Pulse Ox O2 Delivery O2 Flow Rate FiO2 11/18/19 09:00 60 11/18/19 09:00 60 105/51 11/18/19 08:00 61 11/18/19 08:00 97.5 66 18 105/51 (69) 96 11/18/19 04:00 97.5 60 18 144/60 (88) 97 11/18/19 04:00 60 11/18/19 00:00 60 11/18/19 00:00 97.7 60 18 136/62 (86) 95 11/17/19 21:00 Room Air 11/17/19 20:00 97.0 60 18 140/60 (86) 96 11/17/19 20:00 60 11/17/19 16:00 97.9 60 18 152/65 (94) 60 11/17/19 16:00 60 11/17/19 13:05 97.9 60 20 142/58 (86) 97 11/17/19 12:00 60 11/17/19 12:00 97.9 60 20 142/58 (86) 97 60 Intake and Output 11/17/19 11/18/19 19:00 07:00 Intake Total 400 ml Balance 400 ml Intake Oral 400 ml # Voids 2 2 General Appearance: no acute distress HEENT: normocephalic Respiratory: chest wall non-tender, lungs clear Cardiovascular: normal peripheral pulses Abdomen: normal bowel sounds Laboratory Tests 11/18/19 06:05: Prothrombin Time 23.5H, Prothromb Time International Ratio 2.3H Current Medications Medications (Trade) Dose Ordered Sig/Kody Route PRN Reason Start Time Stop Time Status Last Admin Dose Admin Allopurinol (Zyloprim) 100 mg DAILY ORAL 11/17/19 09:00 12/15/19 08:59 11/18/19 08:46 Aspirin (Ecotrin) 81 mg DAILY ORAL 11/11/19 13:30 12/26/19 13:29 11/18/19 08:45 Atenolol (Tenormin) 25 mg DAILY ORAL 11/12/19 09:00 12/12/19 08:59 11/17/19 09:57 Atorvastatin Calcium (Lipitor) 80 mg BEDTIME ORAL 11/11/19 21:00 02/09/20 20:59 11/17/19 21:14 Clonidine HCl (Catapres Tab) 0.1 mg Q4H PRN ORAL For High Blood Pressure 11/16/19 11:00 02/14/20 00:00 Digoxin (Lanoxin) 0.125 mg DAILY ORAL 11/11/19 14:30 02/09/20 14:29 11/17/19 09:56 Docusate Sodium (Colace) 100 mg THREE TIMES A DAY ORAL 11/13/19 18:00 12/13/19 17:59 11/18/19 08:46 Fish Oil (Fish Oil) 1,000 mg BID ORAL 11/14/19 18:00 12/14/19 17:59 11/18/19 08:45 Pantoprazole (Protonix) 40 mg EVERY 12 HOURS ORAL 11/13/19 21:00 12/13/19 20:59 11/18/19 08:45 Vitamin D (Vitamin D) 2,000 intlu DAILY ORAL 11/16/19 11:00 12/16/19 10:59 11/18/19 08:45 Warfarin Sodium (Coumadin per pharmacy) 1 ea DAILY PRN MISC Per rx protocol 11/11/19 12:30 12/11/19 12:29 Warfarin Sodium (Warfarin Sod) 3 mg ONCE ORAL 11/18/19 17:00 11/18/19 19:00 Assessment/Plan Assessment/Plan IMPRESSION: 1. Pulmonary edema. 2. Pacemaker. 3. History of cardiac surgery. 4. Gout. 5. Hypertension. 6. Coagulopathy. DISCUSSION: Continue home medications. Diuresis as needed Saturating well on RA I will follow carefully. Radha Hi Omar Syed MD November 18, 2019 10:55
[2019-11-18 12:00] VITALS: BP 132/60
--- NOTE | 2019-11-18 13:18 | Nephrology Progress Note ---
Assessment/Plan Problem List: (1) BARNEY (acute kidney injury) (2) Atrial fibrillation (3) Pacemaker (4) Hypotension Assessment: Episodic Assessment Acute renal failure multifactorial -Most likely due to combination of diuretics and ALPESH inhibitors -Episodic hypotension Other conditions: Atrial fibrillation Elevated hemoglobin A1c to 6.2 Status post pacemaker August 2018 Longer run of ventricular tachycardia 24 beats Echocardiogram suggests ejection fraction of 60% Status post aortic and mitral valve bioprosthesis Plan No can panel done today Off Lotensin and Lasix Check renal parameters as needed Avoid nephrotoxic's Keep the blood pressure above 100 systolic Monitor INR since the patient is on Coumadin Protonix and Colace p.o. Allopurinol for high uric acid Fish oil for high triglycerides Subjective ROS Limited/Unobtainable: No Constitutional: Reports: malaise Objective Objective Last 24 Hour Vital Signs Date Time Temp Pulse Resp B/P (MAP) Pulse Ox O2 Delivery O2 Flow Rate FiO2 11/18/19 09:00 Room Air 11/18/19 09:00 60 11/18/19 09:00 60 105/51 11/18/19 08:00 61 11/18/19 08:00 97.5 66 18 105/51 (69) 96 11/18/19 04:00 97.5 60 18 144/60 (88) 97 11/18/19 04:00 60 11/18/19 00:00 60 11/18/19 00:00 97.7 60 18 136/62 (86) 95 11/17/19 21:00 Room Air 11/17/19 20:00 97.0 60 18 140/60 (86) 96 11/17/19 20:00 60 11/17/19 16:00 97.9 60 18 152/65 (94) 60 11/17/19 16:00 60 Intake and Output 11/17/19 11/18/19 18:59 06:59 Intake Total 400 ml Balance 400 ml Intake Oral 400 ml # Voids 2 2 Laboratory Tests 11/18/19 06:05: Prothrombin Time 23.5H, Prothromb Time International Ratio 2.3H Height (Feet): 5 Height (Inches): 2.00 Weight (Pounds): 136 General Appearance: no apparent distress Objective No change Riaz Tolbert MD November 18, 2019 13:18
--- NOTE | 2019-11-18 13:26 | Infectious Diseases Prog Note ---
Assessment/Plan Assessment/Plan IMPRESSION: Mild COVID19 disease Leukocytosis Mild pulmonary hypertension Hypertension, Gout, valvular heart disease, status post mitral & aortic bioprosthetic valve placement, Atrial fibrillation, Acute renal failure improving RECOMMENDATION: Observe off antibiotic. CXR improving infiltrates Subjective ROS Limited/Unobtainable: No Constitutional: Reports: no symptoms Gastrointestinal/Abdominal: Reports: no symptoms Genitourinary: Reports: no symptoms Allergies: Coded Allergies: PENICILLIN (Unverified Allergy, Unknown, 07/02/15) Objective Vital Signs Last 24 Hour Vital Signs Date Time Temp Pulse Resp B/P (MAP) Pulse Ox O2 Delivery O2 Flow Rate FiO2 11/18/19 09:00 Room Air 11/18/19 09:00 60 11/18/19 09:00 60 105/51 11/18/19 08:00 61 11/18/19 08:00 97.5 66 18 105/51 (69) 96 11/18/19 04:00 97.5 60 18 144/60 (88) 97 11/18/19 04:00 60 11/18/19 00:00 60 11/18/19 00:00 97.7 60 18 136/62 (86) 95 11/17/19 21:00 Room Air 11/17/19 20:00 97.0 60 18 140/60 (86) 96 11/17/19 20:00 60 11/17/19 16:00 97.9 60 18 152/65 (94) 60 11/17/19 16:00 60 Height (Feet): 5 Height (Inches): 2.00 Weight (Pounds): 136 General Appearance: no acute distress HEENT: mucous membranes moist Respiratory/Chest: lungs clear Cardiovascular: normal rate Abdomen: soft, non tender Extremities: no edema Neurologic/Psychiatric: alert, oriented x 3, responsive Laboratory Tests Test 11/18/19 06:05 Prothrombin Time 23.5 SEC (9.30-11.50) H Prothromb Time International Ratio 2.3 (0.9-1.1) H Current Medications Medications (Trade) Dose Ordered Sig/Kody Route PRN Reason Start Time Stop Time Status Last Admin Dose Admin Allopurinol (Zyloprim) 100 mg DAILY ORAL 11/17/19 09:00 12/15/19 08:59 11/18/19 08:46 Aspirin (Ecotrin) 81 mg DAILY ORAL 11/11/19 13:30 12/26/19 13:29 11/18/19 08:45 Atenolol (Tenormin) 25 mg DAILY ORAL 11/12/19 09:00 12/12/19 08:59 11/17/19 09:57 Atorvastatin Calcium (Lipitor) 80 mg BEDTIME ORAL 11/11/19 21:00 02/09/20 20:59 11/17/19 21:14 Clonidine HCl (Catapres Tab) 0.1 mg Q4H PRN ORAL For High Blood Pressure 11/16/19 11:00 02/14/20 00:00 Digoxin (Lanoxin) 0.125 mg DAILY ORAL 11/11/19 14:30 02/09/20 14:29 11/17/19 09:56 Docusate Sodium (Colace) 100 mg THREE TIMES A DAY ORAL 11/13/19 18:00 12/13/19 17:59 11/18/19 08:46 Fish Oil (Fish Oil) 1,000 mg BID ORAL 11/14/19 18:00 12/14/19 17:59 11/18/19 08:45 Pantoprazole (Protonix) 40 mg EVERY 12 HOURS ORAL 11/13/19 21:00 12/13/19 20:59 11/18/19 08:45 Vitamin D (Vitamin D) 2,000 intlu DAILY ORAL 11/16/19 11:00 12/16/19 10:59 11/18/19 08:45 Warfarin Sodium (Coumadin per pharmacy) 1 ea DAILY PRN MISC Per rx protocol 11/11/19 12:30 12/11/19 12:29 Warfarin Sodium (Warfarin Sod) 3 mg ONCE ORAL 11/18/19 17:00 11/18/19 19:00 Álvaro Mix MD November 18, 2019 13:26
[2019-11-18] MEDS ORDERED: ATENOLOL25 MG ORAL (13:44)
[2019-11-18 16:00] VITALS: BP 127/62
--- NOTE | 2019-11-18 16:08 | Cardiac Electrophysiology PN ---
Assessment/Plan Assessment/Plan 1. Atrial fibrillation. Continue Dig and atenolol 25 daily. On Coumadin per pharmacy. Pacer check showed 26% atrial fib. 2. Long run of 24 beats of V tach. No CO. Cardiac cath after Covid negative as out patient On Atenolol 25 daily 3. Congestive heart failure, EF of around 60%. 4. Status post [facility] Gene pacemaker placement 08/2018 . Interrogated and showed Nl fx 5. Status post aortic and mitral valve bioprosthesis. 6. Hypotension, resolved 7. ARF, resolved DW RN and Dr. Tolbert OK to DC Subjective Subjective No more VT . AV paced. NAD. DC in progress Objective Last 24 Hour Vital Signs Date Time Temp Pulse Resp B/P (MAP) Pulse Ox O2 Delivery O2 Flow Rate FiO2 11/18/19 12:00 97.7 61 20 132/60 (84) 94 11/18/19 12:00 60 11/18/19 09:00 Room Air 11/18/19 09:00 60 11/18/19 09:00 60 105/51 11/18/19 08:00 61 11/18/19 08:00 97.5 66 18 105/51 (69) 96 11/18/19 04:00 97.5 60 18 144/60 (88) 97 11/18/19 04:00 60 11/18/19 00:00 60 11/18/19 00:00 97.7 60 18 136/62 (86) 95 11/17/19 21:00 Room Air 11/17/19 20:00 97.0 60 18 140/60 (86) 96 11/17/19 20:00 60 Intake and Output 11/17/19 11/18/19 19:00 07:00 Intake Total 400 ml Balance 400 ml Intake Oral 400 ml # Voids 2 2 Laboratory Tests Test 11/18/19 06:05 Prothrombin Time 23.5 SEC (9.30-11.50) H Prothromb Time International Ratio 2.3 (0.9-1.1) H Objective HEAD AND NECK: Shows mild JVD. LUNGS: Clear. CARDIOVASCULAR: Regular S1 and S2 with no gallop. Sternotomy scar is intact. The pacemaker in the left subclavian. ABDOMEN: Soft. EXTREMITIES: No pitting edema. Pb Fairchild MD November 18, 2019 16:08
[2019-11-18] MEDS ORDERED: Warfarin Sodium 1mg ORAL SCH (17:00)
[2019-11-18 19:22] VITALS: BP 182/68
--- NOTE | 2019-11-18 20:44 | General Progress Note ---
Assessment/Plan Problem List: (1) Atrial fibrillation ICD Codes: I48.91 - Unspecified atrial fibrillation SNOMED: 40293070 (2) COVID-19 ruled out ICD Codes: Z03.818 - Encounter for observation for suspected exposure to other biological agents ruled out SNOMED: 786773327, 918342766 (3) Upper respiratory infection ICD Codes: J06.9 - Acute upper respiratory infection, unspecified SNOMED: 84781055 (4) Suspected COVID-19 virus infection ICD Codes: Z20.828 - Contact with and (suspected) exposure to other viral communicable diseases SNOMED: 003213895 (5) CHF (congestive heart failure) ICD Codes: I50.9 - Heart failure, unspecified SNOMED: 27625916 Status: progressing Assessment/Plan: covid positive dc if cleared by dr sherwood cardiac cath paula alcohol rubber s/p runs of VT leukocytosis is improving Subjective ROS Limited/Unobtainable: Yes Allergies: Coded Allergies: PENICILLIN (Unverified Allergy, Unknown, 07/02/15) Objective Last 24 Hour Vital Signs Date Time Temp Pulse Resp B/P (MAP) Pulse Ox O2 Delivery O2 Flow Rate FiO2 11/18/19 19:22 182/68 11/18/19 16:00 62 11/18/19 16:00 97.9 60 20 127/62 (83) 95 11/18/19 12:00 97.7 61 20 132/60 (84) 94 11/18/19 12:00 60 11/18/19 09:00 Room Air 11/18/19 09:00 60 11/18/19 09:00 60 105/51 11/18/19 08:00 61 11/18/19 08:00 97.5 66 18 105/51 (69) 96 11/18/19 04:00 97.5 60 18 144/60 (88) 97 11/18/19 04:00 60 11/18/19 00:00 60 11/18/19 00:00 97.7 60 18 136/62 (86) 95 11/17/19 21:00 Room Air Intake and Output 11/17/19 11/18/19 19:00 07:00 Intake Total 400 ml Balance 400 ml Intake Oral 400 ml # Voids 2 2 Laboratory Tests 11/18/19 06:05: Prothrombin Time 23.5H, Prothromb Time International Ratio 2.3H Height (Feet): 5 Height (Inches): 2.00 Weight (Pounds): 136 Giuliano Krueger MD November 18, 2019 20:44
--- NOTE | 2019-11-19 13:21 | Discharge Summary ---
Discharge Summary Discharge Summary _ DATE OF ADMISSION: 11/11/2019 DATE OF DISCHARGE: 11/18/2019 DISCHARGED BY: Dr. Krueger REASON FOR ADMISSION: 64 years old female with past medical history of hypertension, status post aortic and mitral valve replacement in 2005, on chronic anticoagulation therapy , hypercholesterolemia, depression, presented to emergency department with complaint of generalized weakness. Upon evaluation vital signs were stable. EKG revealed atrial fibrillation with controlled ventricular response. Laboratory work-up revealed no leukocytosis , stable hemoglobin ,hematocrit and platelet counts. Stable electrolytes and renal parameters. Lactic acid 1.5. Glucose 103. Stable LFT. Troponin negative, pro BNP 141. Urinalysis revealed no evidence of urinary tract infection. Chest x-ray demonstrated vascular congestion and early edema. In emergency department patient was swabbed for COVID-19 and admitted to isolation room for further management. CONSULTANTS: wound care nurse Dr. Harper pulmonary Dr. Blankenship ID specialist Dr. Álvaro Mix doctor of naturopathic medicine Dr. Tolbert automotive buyer/oncologist Dr. Call psychiatrist Dr. Lopez [facility] COURSE: Patient admitted to telemetry floor. Patient was in isolation room. Echocardiogram revealed preserved ejection fraction of 65% with mild left ventricular hypertrophy. No evidence of wall motion abnormality. Right ventricular systolic pressure of 35 consistent with a mild pulmonary hypertension. Home medication continued . Patient started on Lasix with close monitoring of volumes and cardiorenal parameters. Rate control maintained with beta az and digoxin. Anticoagulation with Coumadin continued, INR remained therapeutic. Statin continued. GI prophylaxis provided. Blood pressure was managed with current antihypertensive regimen . Pacemaker was interrogated and showed normal functioning. Brine Maker recommended cardiac catheterization after testing for COVID negative, which can be scheduled as outpatient. SARS-CoV-2 by PCR on 11/15/2024 was detected. Blood cultures were negative. Patient continued to be on isolation. Follow-up chest x-ray revealed improved left and probably unchanged right lung parenchymal infiltrate versus edema. Patient was observed off antibiotic. Patient developed mild leukocytosis which was trending down. No fevers. Respiratory status remained stable. Supplemental oxygen was on board as needed to keep pulse oximetry above 92%. Pulmonary toilet provided. Pulse oximetry r remained stable on room air. Renal parameters and electrolytes were closely monitored. Electrolytes corrected as needed . Patient developed creatinine of 1.8 on 11/11 Lasix and Lisinopril were stopped. Prior to discharge creatinine 1.1. Acute kidney injury was multifactorial, most likely due to combination of diuretic and ALPESH inhibitor. Sort Line recommended avoid nephrotoxic in future. Hemoglobin and hematocrit were closely monitored with goal to keep hemoglobin above 7; hemoglobin and hematocrit remained stable . Prior to discharge hemoglobin 11.1 , hematocrit 30.8. Psychiatric medication regimen was optimized as per psychiatrist . Reality orientation and supportive therapy provided. Patient clinically stabilized and was ready for discharge home with home health services to follow. FINAL DIAGNOSES: Confirmed COVID-19 infection Atrial fibrillation Congestive heart failure Pulmonary edema Status post [employer] pacemaker placement 08/2018 Long run of NSVT Acute renal failure/ likely due to combination of diuretic and ALPESH inhibitor - resolved Mild pulmonary hypertension Valvular heart disease, status post aortic and mitral valve bioprosthesis Gout Anxiety disorder Anemia of chronic disease Major depressive disorder DISCHARGE MEDICATIONS: See Medication Reconciliation list. DISCHARGE INSTRUCTIONS: Patient was discharged home with home health services. Follow up with primary care provider in one week. I have been assigned to dictate discharge summary for this account. I was not involved in the patient's management. Aleisha Hartman NP November 19, 2019 13:21
== END 2019-11-18 19:40 | disposition home or self-care (01) | DRG 177 ==
LOC: EDBD 08:23 → EMR 08:42 → EDBEDREQ 11:20 → 2E 11:37
DX: U07.1 COVID-19 (principal); I50.23 Acute on chronic systolic (congestive) heart failure; N17.9 Acute kidney failure, unspecified; I47.2 Ventricular tachycardia; I48.91 Unspecified atrial fibrillation; I11.0 Hypertensive heart disease with heart failure; R06.02 Shortness of breath; Z95.0 Presence of cardiac pacemaker; F32.9 Major depressive disorder, single episode, unspecified; Z88.0 Allergy status to penicillin; Z79.01 Long term (current) use of anticoagulants; Z95.2 Presence of prosthetic heart valve; I27.20 Pulmonary hypertension, unspecified; M10.9 Gout, unspecified; F41.9 Anxiety disorder, unspecified; G47.00 Insomnia, unspecified; R79.1 Abnormal coagulation profile
CPT/HCPCS: 36415; 71045; 80053; 80061; 80162; 81003; 82248; 82533; 82550; 82553; 82607; 82728; 82746; 82977; 83036; 83605; 83690; 83735; 83880; 84100; 84165; 84443; 84484; 84550; 85007; 85025; 85610; 86140; 87040; 87081; 87635; 93005; 93306; 96374; 99285